=== PATIENT | female | born 1960 | race Caucasian/White ===

== ENCOUNTER 2016-05-27 12:50 | Emergency (ER) | payer MEDICAID ==
[2016-05-27] MEDS ORDERED: ONDANSETRON 4 MG TAB.RAPDIS PO ONE (13:08)
--- NOTE | 2016-05-27 13:10 | ER Document Report ---
ED Medical Screen (RME) - General Stated Complaint: NAUSEA Mode of Arrival: Ambulatory Information source: Patient Notes: She presents to the emergency department with complaints of nausea vomiting right upper quadrant abdominal pain that started last night about 1 hours after dinner of ham sandwich.. deneis trauma, reports feeling hot/cold, mixture of diarrhea. I have greeted and performed a rapid initial assessment of this patient. A comprehensive ED assessment and evaluation of the patient, analysis of test results and completion of the medical decision making process will be conducted by additional ED providers. TRAVEL OUTSIDE OF THE [place] IN LAST 30 DAYS: No - Related Data Allergies/Adverse Reactions: levofloxacin [From Levaquin] Adverse Reaction (Intermediate, Verified 04/13/16 18:19) nausea and vomiting simvastatin [From Zocor] Adverse Reaction (Intermediate, Verified 05/27/16 13:08 ) rash Past Medical History - Past Medical History Cardiac Medical History: Reports: Hx Hypercholesterolemia, Hx Hypertension, Hx Heart Murmur Denies: Hx Coronary Artery Disease, Hx Heart Attack Pulmonary Medical History: Reports: Hx Asthma, Hx Bronchitis, Hx Pneumonia Denies: Hx COPD Neurological Medical History: Reports: Hx Migraine. Denies: Hx Cerebrovascular Accident, Hx Seizures Endocrine Medical History: Reports: Hx Diabetes Mellitus Type 2 Renal/ Medical History: Reports: Hx Kidney Stones GI Medical History: Reports: Hx Gastroesophageal Reflux Disease, Hx Ulcer - gastric, Hx Colonoscopy, Hx Endoscopy Musculoskeltal Medical History: Reports Hx Arthritis, Reports Hx Musculoskeletal Trauma Psychiatric Medical History: Reports: Hx Depression Traumatic Medical History: Reports: Hx Fractures - wrist, both ankles Past Surgical History: Reports: Hx Hysterectomy, Hx Orthopedic Surgery - 2 L knee. Denies: Hx Pacemaker - Immunizations Immunizations up to date: Yes Hx Diphtheria, Pertussis, Tetanus Vaccination: Yes - 2012 Physical Exam - Vital signs Vitals: Temp Pulse Resp BP Pulse Ox 97.7 F 94 18 149/87 H 97 05/27/16 13:04 05/27/16 13:04 05/27/16 13:04 05/27/16 13:04 05/27/16 13:04 Course - Vital Signs Vital signs: Temp Pulse Resp BP Pulse Ox 97.7 F 94 18 149/87 H 97 05/27/16 13:04 05/27/16 13:04 05/27/16 13:04 05/27/16 13:04 05/27/16 13:04
[2016-05-27 13:50] LABS: APPEARANCE,URINE SLIGHTLY-CLOUDY; BILIRUBIN,URINE NEGATIVE (NEGATIVE); GLUCOSE, URINE NEGATIVE (NEGATIVE); KETONES,URINE NEGATIVE (NEGATIVE); LEUKOCYTE ESTERASE,URINE NEGATIVE (NEGATIVE); NITRITE,URINE NEGATIVE (NEGATIVE); PROTEIN,URINE 30 mg/dL (NEGATIVE); URINE SPECIFIC GRAVITY 1.026; UROBILINOGEN,URINE NEGATIVE mg/dL (<2.0)
[2016-05-27 13:52] LABS: ABSOLUTE BASOPHILS # (AUTO) 0.1 10^3/uL (0.0-0.2); ABSOLUTE EOSINOPHILS # (AUTO) 0.3 10^3/uL (0.0-0.6); ABSOLUTE LYMPHOCYTES (AUTO) 2.6 10^3/uL (0.5-4.7); ABSOLUTE MONOCYTES (AUTO) 0.4 10^3/uL (0.1-1.4); ABSOLUTE NEUT (AUTO) 3.6 10^3/uL (1.7-8.2); BASOPHILS % (AUTO) 0.8 % (0-2); EOSINOPHILS % (AUTO) 4.2 % (0-6); HEMATOCRIT 44.2 % (36.0-47.0); HEMOGLOBIN 13.8 g/dL (12.0-15.5); HGB HCT DIFFERENCE -2.8; LYMPHOCYTES % (AUTO) 37.3 % (13-45); MEAN CORPUSCULAR HEMOGLOBIN 27.6 pg (27.0-33.4); MEAN CORPUSCULAR HGB CONC 31.3 g/dL (32.0-36.0); MEAN CORPUSCULAR VOLUME 88 fl (80-97); MONOCYTES % (AUTO) 6.2 % (3-13); RED BLOOD COUNT 5.01 10^6/uL (3.72-5.28); RED CELL DISTRIBUTION WIDTH 14.1 % (11.5-14.0); SEGMENTED NEUTROPHILS % (AUTO) 51.5 % (42-78); WHITE BLOOD COUNT 6.9 10^3/uL (4.0-10.5)
[2016-05-27 14:19] LABS: ALANINE AMINOTRANSFERASE 57 U/L (9-52); ALBUMIN 4.6 g/dL (3.5-5.0); ALKALINE PHOSPHATASE 84 U/L (38-126); ANION GAP 11 (5-19); ASPARTATE AMINO TRANSFERASE 41 U/L (14-36); BILIRUBIN,TOTAL 0.8 mg/dL (0.2-1.3); BLOOD UREA NITROGEN 20 mg/dL (7-20); CALCIUM 9.7 mg/dL (8.4-10.2); CARBON DIOXIDE 30 mmol/L (22-30); CHLORIDE 99 mmol/L (98-107); CREATININE RESULT 1.17 mg/dL (0.52-1.25); GLUCOSE 118 mg/dL (75-110); LIPASE 53.7 U/L (23-300); POTASSIUM 4.1 mmol/L (3.6-5.0); SODIUM 140.3 mmol/L (137-145); TOTAL PROTEIN 7.9 g/dL (6.3-8.2)
--- NOTE | 2016-05-27 14:28 | ER Document Report ---
ED GI/ - General Chief Complaint: Nausea/Vomiting Stated Complaint: NAUSEA Mode of Arrival: Ambulatory Notes: This is a 55-year-old female with history of hypertension and obesity who presents complaining of right upper quadrant and right flank pain for one day. Pain radiates to the right lower quadrant as well. Pain is intermittent. It is associated with nausea, vomiting and loose stools. It feels similar to prior episode she had with her gallbladder. She did not have her gallbladder removed. She's had chills and sweats and subjective fever. About a week ago she states she had nasal congestion, sore throat and cough which she describes as flu symptoms. She states those symptoms have just resolved when the abdominal pain began. TRAVEL OUTSIDE OF THE [place] IN LAST 30 DAYS: No - Related Data Allergies/Adverse Reactions: levofloxacin [From Levaquin] Adverse Reaction (Intermediate, Verified 04/13/16 18:19) nausea and vomiting simvastatin [From Zocor] Adverse Reaction (Intermediate, Verified 05/27/16 13:08 ) rash Past Medical History - General Information source: Patient - Social History Smoking Status: Never Smoker Chew tobacco use (# tins/day): No Frequency of alcohol use: None Family History: Arthritis, CAD, CVA, DM, Hyperlipidemia, Hypertension, Malignancy Patient has suicidal ideation: No Patient has homicidal ideation: No - Past Medical History Cardiac Medical History: Reports: Hx Hypercholesterolemia, Hx Hypertension, Hx Heart Murmur Denies: Hx Coronary Artery Disease, Hx Heart Attack Pulmonary Medical History: Reports: Hx Asthma, Hx Bronchitis, Hx Pneumonia Denies: Hx COPD Neurological Medical History: Reports: Hx Migraine. Denies: Hx Cerebrovascular Accident, Hx Seizures Endocrine Medical History: Reports: Hx Diabetes Mellitus Type 2 Renal/ Medical History: Reports: Hx Kidney Stones. Denies: Hx Peritoneal Dialysis GI Medical History: Reports: Hx Gastroesophageal Reflux Disease, Hx Ulcer - gastric, Hx Colonoscopy, Hx Endoscopy Musculoskeltal Medical History: Reports Hx Arthritis, Reports Hx Musculoskeletal Trauma Psychiatric Medical History: Reports: Hx Depression Traumatic Medical History: Reports: Hx Fractures - wrist, both ankles Past Surgical History: Reports: Hx Hysterectomy, Hx Orthopedic Surgery - 2 L knee. Denies: Hx Pacemaker - Immunizations Immunizations up to date: Yes Hx Diphtheria, Pertussis, Tetanus Vaccination: Yes - 2012 Hx Pneumococcal Vaccination: 01/30/15 Review of Systems - Review of Systems Constitutional: Chills, Fever, Malaise, Weakness EENT: See HPI Cardiovascular: denies: Chest pain, Syncope Respiratory: Cough. denies: Short of breath Gastrointestinal: Abdominal pain, Diarrhea, Nausea, Vomiting. denies: Abdomen distended Genitourinary: Flank pain. denies: Burning Female Genitourinary: Other - Hysterectomy Musculoskeletal: denies: Leg swelling Skin: denies: Rash Hematologic/Lymphatic: denies: Swollen glands Neurological/Psychological: denies: Numbness, Tingling Physical Exam - Vital signs Vitals: Temp Pulse Resp BP Pulse Ox 97.7 F 94 18 149/87 H 97 05/27/16 13:04 05/27/16 13:04 05/27/16 13:04 05/27/16 13:04 05/27/16 13:04 - Notes Notes: GENERAL: Pleasant, obese female sitting upright on the edge of stretcher, appears moderately uncomfortable but in no acute respiratory distress, she is holding her right abdomen HEAD: Atraumatic, normocephalic. EYES: Pupils equal round and reactive to light, extraocular movements intact, sclera anicteric, conjunctiva are normal. ENT: TMs normal, nares patent, oropharynx clear without exudates. Moist mucous membranes. NECK: Normal range of motion, supple without lymphadenopathy or JVD. LUNGS: Breath sounds clear to auscultation bilaterally and equal. No wheezes rales or rhonchi. HEART: Regular rate and rhythm without murmurs, rubs or gallops. ABDOMEN: Obese, soft, positive right upper quadrant tenderness with Warren sign , mild right lower quadrant tenderness, no guarding or rebound, no left abdominal tenderness EXTREMITIES: Normal range of motion, no pitting or edema. No clubbing or cyanosis. NEUROLOGICAL: Cranial nerves II through XII grossly intact. Normal speech, normal gait. PSYCH: Normal mood, normal affect. SKIN: Warm, Dry, normal turgor, no rashes or lesions noted. Course - Vital Signs Vital signs: Temp Pulse Resp BP Pulse Ox 97.7 F 88 16 121/77 95 05/27/16 18:38 05/27/16 18:38 05/27/16 18:38 05/27/16 18:38 05/27/16 18:38 - Laboratory Result Diagrams: 05/27/16 13:25 05/27/16 13:25 Laboratory results interpreted by me: 05/27/16 05/27/16 05/27/16 13:25 13:25 13:25 MCHC 31.3 L RDW 14.1 H Est GFR ( Amer) 59 L Est GFR (Non-Af Amer) 48 L Glucose 118 H AST 41 H ALT 57 H Urine Protein 30 H - Diagnostic Test Radiology reviewed: Image reviewed, Reports reviewed - U/S negative for gallstones, CT ab/ pelvis neg for renal obstructions Discharge - Discharge Clinical Impression: Gastroenteritis Condition: Good Disposition: HOME, SELF-CARE Additional Instructions: return if you have fever, worsening pain, cannot keep down fluids or have further concerns. Prescriptions: Ondansetron [Zofran Odt 4 mg Tablet] 1 - 2 tab PO Q4H PRN #15 tab.rapdis PRN Reason: For Nausea/Vomiting Oxycodone HCl/Acetaminophen [Percocet 5-325 mg Tablet] 1 - 2 tab PO Q4H PRN #15 tablet PRN Reason: Referrals: CALLIE JACKSON [Primary Care Provider] - Follow up as needed
[2016-05-27] MEDS ORDERED: MORPHINE SULFATE 10 MG/ML INJ IV ONE ×2 (15:07→17:32)
[2016-05-27] MEDS ORDERED: ONDANSETRON HCL INJ/PF 4 MG/2 ML SDV IV ONE (15:07)
[2016-05-27 19:01] VITALS: BP 121/77
== END 2016-05-27 18:38 | disposition home or self-care (01) ==
LOC: ER 12:50
DX: K52.9 Noninfective gastroenteritis and colitis, unspecified (principal); I10 Essential (primary) hypertension; E66.9 Obesity, unspecified; Z68.43 Body mass index [BMI] 50.0-59.9, adult; R10.11 Right upper quadrant pain; R10.9 Unspecified abdominal pain; R11.2 Nausea with vomiting, unspecified; R19.4 Change in bowel habit; R61 Generalized hyperhidrosis; R53.1 Weakness; R53.81 Other malaise; R50.9 Fever, unspecified; J45.909 Unspecified asthma, uncomplicated; E11.9 Type 2 diabetes mellitus without complications; Z87.11 Personal history of peptic ulcer disease; Z87.19 Personal history of other diseases of the digestive system; Z90.710 Acquired absence of both cervix and uterus
CPT/HCPCS: 96376; 99284; 96374; 96375; 36415; 83690; 85025; 80053; 81001; 76705; 76380; S0119; J2270; J2405

== ENCOUNTER 2016-06-08 17:48 | Emergency (ER) | payer MEDICAID ==
[2016-06-08 18:05] VITALS: BP 121/78
[2016-06-08] MEDS ORDERED: ONDANSETRON 4 MG TAB.RAPDIS PO ONE (18:10)
--- NOTE | 2016-06-08 18:11 | ER Document Report ---
ED Medical Screen (RME) - General Stated Complaint: RIGHT SIDE PAIN,VOMITING Mode of Arrival: Ambulatory Information source: Patient Notes: Patient complains of right upper quadrant pain that started yesterday has been off and on. Patient does report some nausea and vomiting. Patient states she' s vomited 3 episodes today. No diarrhea. No urinary symptoms. hx: Hypertension, diabetes, high cholesterol, hysterectomy I have greeted and performed a rapid initial assessment of this patient. A comprehensive ED assessment and evaluation of the patient, analysis of test results and completion of the medical decision making process will be conducted by additional ED providers. TRAVEL OUTSIDE OF THE [place] IN LAST 30 DAYS: No - Related Data Allergies/Adverse Reactions: levofloxacin [From Levaquin] Adverse Reaction (Intermediate, Verified 04/13/16 18:19) nausea and vomiting simvastatin [From Zocor] Adverse Reaction (Intermediate, Verified 05/27/16 13:08 ) rash Past Medical History - Past Medical History Cardiac Medical History: Reports: Hx Hypercholesterolemia, Hx Hypertension, Hx Heart Murmur Denies: Hx Coronary Artery Disease, Hx Heart Attack Pulmonary Medical History: Reports: Hx Asthma, Hx Bronchitis, Hx Pneumonia Denies: Hx COPD Neurological Medical History: Reports: Hx Migraine. Denies: Hx Cerebrovascular Accident, Hx Seizures Endocrine Medical History: Reports: Hx Diabetes Mellitus Type 2 Renal/ Medical History: Reports: Hx Kidney Stones. Denies: Hx Peritoneal Dialysis GI Medical History: Reports: Hx Gastroesophageal Reflux Disease, Hx Ulcer - gastric, Hx Colonoscopy, Hx Endoscopy Musculoskeltal Medical History: Reports Hx Arthritis, Reports Hx Musculoskeletal Trauma Psychiatric Medical History: Reports: Hx Depression Traumatic Medical History: Reports: Hx Fractures - wrist, both ankles Past Surgical History: Reports: Hx Hysterectomy, Hx Orthopedic Surgery - 2 L knee. Denies: Hx Pacemaker - Immunizations Immunizations up to date: Yes Hx Diphtheria, Pertussis, Tetanus Vaccination: Yes - 2012 Physical Exam - Vital signs Vitals: Temp Pulse Resp BP Pulse Ox 97.7 F 76 18 121/78 97 06/08/16 18:04 06/08/16 18:04 06/08/16 18:04 06/08/16 18:04 06/08/16 18:04 - Abdominal Tenderness: Tender - Right lower quadrant Course - Vital Signs Vital signs: Temp Pulse Resp BP Pulse Ox 97.7 F 76 18 121/78 97 06/08/16 18:04 06/08/16 18:04 06/08/16 18:04 06/08/16 18:04 06/08/16 18:04
[2016-06-08 19:27] LABS: ABSOLUTE BASOPHILS # (AUTO) 0.1 10^3/uL (0.0-0.2); ABSOLUTE EOSINOPHILS # (AUTO) 0.3 10^3/uL (0.0-0.6); ABSOLUTE LYMPHOCYTES (AUTO) 2.4 10^3/uL (0.5-4.7); ABSOLUTE MONOCYTES (AUTO) 0.4 10^3/uL (0.1-1.4); ABSOLUTE NEUT (AUTO) 4.4 10^3/uL (1.7-8.2); BASOPHILS % (AUTO) 0.7 % (0-2); EOSINOPHILS % (AUTO) 3.4 % (0-6); HEMATOCRIT 41.1 % (36.0-47.0); HEMOGLOBIN 13.5 g/dL (12.0-15.5); HGB HCT DIFFERENCE -0.6; LYMPHOCYTES % (AUTO) 31.6 % (13-45); MEAN CORPUSCULAR HEMOGLOBIN 28.5 pg (27.0-33.4); MEAN CORPUSCULAR HGB CONC 32.9 g/dL (32.0-36.0); MEAN CORPUSCULAR VOLUME 87 fl (80-97); MONOCYTES % (AUTO) 5.5 % (3-13); RED BLOOD COUNT 4.73 10^6/uL (3.72-5.28); RED CELL DISTRIBUTION WIDTH 14.8 % (11.5-14.0); SEGMENTED NEUTROPHILS % (AUTO) 58.8 % (42-78); WHITE BLOOD COUNT 7.5 10^3/uL (4.0-10.5)
[2016-06-08 19:56] LABS: ALANINE AMINOTRANSFERASE 57 U/L (9-52); ALBUMIN 4.5 g/dL (3.5-5.0); ALKALINE PHOSPHATASE 83 U/L (38-126); ANION GAP 11 (5-19); ASPARTATE AMINO TRANSFERASE 55 U/L (14-36); BILIRUBIN,TOTAL 1.1 mg/dL (0.2-1.3); BLOOD UREA NITROGEN 17 mg/dL (7-20); CALCIUM 9.9 mg/dL (8.4-10.2); CARBON DIOXIDE 30 mmol/L (22-30); CHLORIDE 98 mmol/L (98-107); CREATININE RESULT 1.06 mg/dL (0.52-1.25); GLUCOSE 116 mg/dL (75-110); LIPASE 51.8 U/L (23-300); POTASSIUM 4.5 mmol/L (3.6-5.0); SODIUM 138.5 mmol/L (137-145)
[2016-06-08 21:27] LABS: APPEARANCE,URINE SLIGHTLY-CLOUDY; BILIRUBIN,URINE NEGATIVE (NEGATIVE); GLUCOSE, URINE NEGATIVE (NEGATIVE); KETONES,URINE NEGATIVE (NEGATIVE); LEUKOCYTE ESTERASE,URINE NEGATIVE (NEGATIVE); NITRITE,URINE NEGATIVE (NEGATIVE); PROTEIN,URINE NEGATIVE (NEGATIVE)
== END 2016-06-08 22:05 | disposition left against medical advice (07) ==
LOC: ER 17:48
DX: R10.11 Right upper quadrant pain (principal); R11.10 Vomiting, unspecified; I10 Essential (primary) hypertension; E78.00 Pure hypercholesterolemia, unspecified; Z90.710 Acquired absence of both cervix and uterus
CPT/HCPCS: 99281; 36415; 83690; 85025; 80053; 81001; S0119

== ENCOUNTER 2016-06-17 12:55 | Day surgery (SDC) | payer MEDICAID ==
[2016-06-17] MEDS ORDERED: DIPHENHYDRAMINE HCL 50 MG/ML VIAL ONE (12:56)
[2016-06-17] MEDS ORDERED: NALOXONE HCL INJ/PF 0.4 MG/1 ML SDV ONE (12:56)
[2016-06-17] MEDS ORDERED: MIDAZOLAM 2 MG/2 ML INJ ONE (12:57)
[2016-06-17] MEDS ORDERED: PROMETHAZINE HCL INJ 25 MG/1 ML VIAL ONE (12:57)
[2016-06-17] MEDS ORDERED: ONDANSETRON HCL INJ/PF 4 MG/2 ML SDV ONE (12:57)
[2016-06-17] MEDS ORDERED: FLUMAZENIL INJ 0.5 MG/5 ML VIAL IV ONE (12:58)
[2016-06-17] MEDS ORDERED: GLUCAGON,HUMAN RECOMB 1 MG INJ ONE (12:58)
[2016-06-17] MEDS ORDERED: EPINEPHRINE INJ 1 MG/10 ML DISP.SYRIN ONE (12:58)
[2016-06-17] MEDS ORDERED: FENTANYL CITRATE INJ/PF 100 MCG/2 ML AMPUL ONE (12:58)
[2016-06-17] MEDS: MIDAZOLAM 2 MG/2 ML INJ ONE ×3 (14:12→14:22)
[2016-06-17] MEDS: FENTANYL CITRATE INJ/PF 100 MCG/2 ML AMPUL ONE ×2 (14:14→14:20)
--- NOTE | 2016-06-17 14:30 | Operative Report ---
Operative Report DATE OF SURGERY: 06/17/16 Operative Report: The risks benefits and alternatives of the procedure explained to the patient in detail and informed consent is obtained that GIF Olympus video scope was inserted into the patient's mouth and hypopharynx the esophagus is identified intubated and insufflated the scope was then advanced through the esophagus stomach and duodenum retroflexion maneuver is done the esophagus stomach and first and second portions of the duodenum examined PREOPERATIVE DIAGNOSIS: Epigastric pain POSTOPERATIVE DIAGNOSIS: Gastritis status post biopsy rule out Helicobacter pylori OPERATION: EGD with biopsy SURGEON: NEGIN MARTINES ANESTHESIA: Moderate Sedation - 6 mg of Versed, 125 g of fentanyl. Conscious sedation monitoring time 25 minutes TISSUE REMOVED OR ALTERED: Gastric specimens x2 COMPLICATIONS: None. ESTIMATED BLOOD LOSS: none. INTRAOPERATIVE FINDINGS: Gastritis. Normal esophagus. First and second portions of the duodenum normal PROCEDURE: Patient tolerated procedure well. No immediate postprocedure complications are noted. Patient is discharged in good condition. Discharge date 06/17/2016. Discharge diet: Regular. Discharge activity: Regular. Patient does have a 2-3 week follow-up to discuss findings. Patient is instructed to call the office or proceed to the emergency room after any further problems or questions. We'll await on biopsies.
[2016-06-17 15:34] VITALS: BP 132/77
== END 2016-06-17 15:36 | disposition home or self-care (01) ==
LOC: END 12:55
PROVIDERS: ATTEND Internal Medicine Gastroenterology
PROC: 0DB68ZX Excision of Stomach, Via Natural or Artificial Opening Endoscopic, Diagnostic (ICD-10-PCS; principal; 2016-06-17 13:30)
DX: K29.50 Unspecified chronic gastritis without bleeding (principal); E11.9 Type 2 diabetes mellitus without complications; I10 Essential (primary) hypertension; K76.0 Fatty (change of) liver, not elsewhere classified; E66.9 Obesity, unspecified; Z88.8 Allergy status to other drugs, medicaments and biological substances
CPT/HCPCS: 43239; 82962; 88342 ×2; 88305 ×2; J2250; J3010; J0171; J1200; J1610; J2310; J2405; J2550; J3490

== ENCOUNTER 2016-06-19 19:08 | Emergency (ER) | payer MEDICAID ==
[2016-06-19 19:20] VITALS: BP 148/74
[2016-06-19] MEDS ORDERED: ONDANSETRON 4 MG TAB.RAPDIS PO ONE (19:20)
--- NOTE | 2016-06-19 19:21 | ER Document Report ---
ED Medical Screen (RME) - General Stated Complaint: POSSIBLE BLOOD IN VOMIT/STOOL Mode of Arrival: Ambulatory Information source: Patient Notes: Patient complains of right lower side abdominal pain that radiates around to her back. Patient states she was here last week for similar complaint. Patient does complain of nausea and vomiting 2 today. Patient does report an episode of hematemesis. No fever. No urinary symptoms. hx: Gastric ulcers, diabetes, hypertension, dyslipidemia I have greeted and performed a rapid initial assessment of this patient. A comprehensive ED assessment and evaluation of the patient, analysis of test results and completion of the medical decision making process will be conducted by additional ED providers. TRAVEL OUTSIDE OF THE [place] IN LAST 30 DAYS: No - Related Data Allergies/Adverse Reactions: levofloxacin [From Levaquin] Adverse Reaction (Intermediate, Verified 06/17/16 13:19) nausea and vomiting simvastatin [From Zocor] Adverse Reaction (Intermediate, Verified 06/17/16 13:19 ) rash Past Medical History - Past Medical History Cardiac Medical History: Reports: Hx Hypercholesterolemia, Hx Hypertension, Hx Heart Murmur Denies: Hx Coronary Artery Disease, Hx Heart Attack Pulmonary Medical History: Reports: Hx Asthma, Hx Bronchitis, Hx Pneumonia Denies: Hx COPD Neurological Medical History: Reports: Hx Migraine. Denies: Hx Cerebrovascular Accident, Hx Seizures Endocrine Medical History: Reports: Hx Diabetes Mellitus Type 2 Renal/ Medical History: Reports: Hx Kidney Stones. Denies: Hx Peritoneal Dialysis GI Medical History: Reports: Hx Gastroesophageal Reflux Disease, Hx Ulcer - gastric, Hx Colonoscopy, Hx Endoscopy Musculoskeltal Medical History: Reports Hx Arthritis, Reports Hx Musculoskeletal Trauma Psychiatric Medical History: Reports: Hx Depression Traumatic Medical History: Reports: Hx Fractures - wrist, both ankles Past Surgical History: Reports: Hx Hysterectomy, Hx Orthopedic Surgery - 2 L knee. Denies: Hx Pacemaker - Immunizations Immunizations up to date: Yes Hx Diphtheria, Pertussis, Tetanus Vaccination: Yes - 2012 Physical Exam - Abdominal Inspection: Morbidly Obese Tenderness: Tender - Right lower abdominal tenderness
[2016-06-19 20:06] LABS: APPEARANCE,URINE CLEAR; BILIRUBIN,URINE NEGATIVE (NEGATIVE); GLUCOSE, URINE NEGATIVE (NEGATIVE); KETONES,URINE NEGATIVE (NEGATIVE); LEUKOCYTE ESTERASE,URINE NEGATIVE (NEGATIVE); NITRITE,URINE NEGATIVE (NEGATIVE); PROTEIN,URINE NEGATIVE (NEGATIVE); URINE SPECIFIC GRAVITY 1.016; UROBILINOGEN,URINE NEGATIVE mg/dL (<2.0)
== END 2016-06-19 21:50 | disposition left against medical advice (07) ==
LOC: ER 19:08
DX: Z53.9 Procedure and treatment not carried out, unspecified reason (principal); K92.0 Hematemesis; R19.5 Other fecal abnormalities; R11.2 Nausea with vomiting, unspecified
CPT/HCPCS: 99281; 81001; S0119

== ENCOUNTER 2016-07-09 17:55 | Emergency (ER) | payer MEDICAID ==
[2016-07-09] MEDS ORDERED: ONDANSETRON 4 MG TAB.RAPDIS PO ONE (19:28)
--- NOTE | 2016-07-09 19:30 | ER Document Report ---
ED Medical Screen (RME) - General Chief Complaint: Abdominal Pain Stated Complaint: LIGHT HEADED Notes: Patient states she's been having intermittent abdominal pain for 1 month as well as nausea and vomiting. Some diarrhea. Seen by Dr. Hinds and scoped 3 weeks ago, diagnosed with H. pylori. Put on Prevpac 2 days ago but patient states she is unable to keep the medication down. Patient states that she is feeling weak. She states they called Dr. Hinds today and was advised to come to the emergency room. No fever I have greeted and performed a rapid initial assessment of this patient. A comprehensive ED assessment and evaluation of the patient, analysis of test results and completion of the medical decision making process will be conducted by additional ED providers. TRAVEL OUTSIDE OF THE [place] IN LAST 30 DAYS: No - Related Data Allergies/Adverse Reactions: levofloxacin [From Levaquin] Adverse Reaction (Intermediate, Verified 06/17/16 13:19) nausea and vomiting simvastatin [From Zocor] Adverse Reaction (Intermediate, Verified 06/17/16 13:19 ) rash Past Medical History - Past Medical History Cardiac Medical History: Reports: Hx Hypercholesterolemia, Hx Hypertension, Hx Heart Murmur Denies: Hx Coronary Artery Disease, Hx Heart Attack Pulmonary Medical History: Reports: Hx Asthma, Hx Bronchitis, Hx Pneumonia Denies: Hx COPD Neurological Medical History: Reports: Hx Migraine. Denies: Hx Cerebrovascular Accident, Hx Seizures Endocrine Medical History: Reports: Hx Diabetes Mellitus Type 2 Renal/ Medical History: Reports: Hx Kidney Stones. Denies: Hx Peritoneal Dialysis GI Medical History: Reports: Hx Gastroesophageal Reflux Disease, Hx Ulcer - gastric, Hx Colonoscopy, Hx Endoscopy Musculoskeltal Medical History: Reports Hx Arthritis, Reports Hx Musculoskeletal Trauma Psychiatric Medical History: Reports: Hx Depression Traumatic Medical History: Reports: Hx Fractures - wrist, both ankles Past Surgical History: Reports: Hx Hysterectomy, Hx Orthopedic Surgery - 2 L knee. Denies: Hx Pacemaker - Immunizations Immunizations up to date: Yes Hx Diphtheria, Pertussis, Tetanus Vaccination: Yes - 2012 Physical Exam - Vital signs Vitals: Temp Pulse Resp BP Pulse Ox 97.8 F 91 18 157/88 H 100 07/09/16 18:11 07/09/16 18:11 07/09/16 18:11 07/09/16 18:11 07/09/16 18:11 Course - Vital Signs Vital signs: Temp Pulse Resp BP Pulse Ox 97.8 F 91 18 157/88 H 100 07/09/16 18:11 07/09/16 18:11 07/09/16 18:11 07/09/16 18:11 07/09/16 18:11
[2016-07-09] MEDS ORDERED: OXYCODONE-ACETAMINOPHEN 5-325 MG TABLET PO ONE ×2 (21:20→23:13)
[2016-07-09] MEDS ORDERED: SUCRALFATE 1 GM TABLET PO ONE ×2 (21:20→23:13)
[2016-07-09] MEDS ORDERED: NORMAL SALINE 1000 ML 1,000 ML IV ONE (21:20)
--- NOTE | 2016-07-09 21:22 | ER Document Report ---
ED GI/ - General Chief Complaint: Abdominal Pain Stated Complaint: LIGHT HEADED Notes: Patient is a 55-year-old female that comes emergency department with chief complaint of pain in her upper abdomen with 2 episodes of vomiting today. Patient states she was placed on amoxicillin, clarithromycin, and omeprazole treatment 2 days ago for an H. pylori infection diagnosed by endoscopy by Dr. Hinds. She states that when she tried to take the medications she vomited. She denies bloody vomit. She states that her bowel movement "looked kind of dark with green mixed in", she is also taking Pepto-Bismol. Past medical history of hysterectomy, hypertension, type II diabetes. TRAVEL OUTSIDE OF THE [place] IN LAST 30 DAYS: No - Related Data Allergies/Adverse Reactions: levofloxacin [From Levaquin] Adverse Reaction (Intermediate, Verified 06/17/16 13:19) nausea and vomiting simvastatin [From Zocor] Adverse Reaction (Intermediate, Verified 06/17/16 13:19 ) rash Home Medications: Current Home Medications Duloxetine HCl [Sammy 30 mg Helen.] 30 mg PO DAILY 07/09/16 [History] Insulin Glargine,Hum.rec.anlog [Lantus Insulin 100 Unit/mL] 07/09/16 [History] Oxycodone HCl/Acetaminophen [Percocet 5-325 mg Tablet] 1 - 2 tab PO Q4H PRN 02/15 [History] Past Medical History - General Information source: Patient - Social History Smoking Status: Never Smoker Chew tobacco use (# tins/day): No Frequency of alcohol use: None Drug Abuse: None Lives with: Family Family History: Arthritis, CAD, CVA, DM, Hyperlipidemia, Hypertension, Malignancy Patient has suicidal ideation: No Patient has homicidal ideation: No - Past Medical History Cardiac Medical History: Reports: Hx Hypercholesterolemia, Hx Hypertension, Hx Heart Murmur Denies: Hx Coronary Artery Disease, Hx Heart Attack Pulmonary Medical History: Reports: Hx Asthma, Hx Bronchitis, Hx Pneumonia Denies: Hx COPD Neurological Medical History: Reports: Hx Migraine. Denies: Hx Cerebrovascular Accident, Hx Seizures Endocrine Medical History: Reports: Hx Diabetes Mellitus Type 2 Renal/ Medical History: Reports: Hx Kidney Stones. Denies: Hx Peritoneal Dialysis GI Medical History: Reports: Hx Gastroesophageal Reflux Disease, Hx Ulcer - gastric, Hx Colonoscopy, Hx Endoscopy Musculoskeltal Medical History: Reports Hx Arthritis, Reports Hx Musculoskeletal Trauma Psychiatric Medical History: Reports: Hx Depression Traumatic Medical History: Reports: Hx Fractures - wrist, both ankles Past Surgical History: Reports: Hx Hysterectomy, Hx Orthopedic Surgery - 2 L knee. Denies: Hx Pacemaker - Immunizations Immunizations up to date: Yes Hx Diphtheria, Pertussis, Tetanus Vaccination: Yes - 2012 Hx Pneumococcal Vaccination: 01/30/15 Review of Systems - Review of Systems Constitutional: No symptoms reported EENT: No symptoms reported Cardiovascular: No symptoms reported Respiratory: No symptoms reported Gastrointestinal: See HPI Genitourinary: No symptoms reported Female Genitourinary: No symptoms reported Musculoskeletal: No symptoms reported Skin: No symptoms reported Hematologic/Lymphatic: No symptoms reported Neurological/Psychological: No symptoms reported Physical Exam - Vital signs Vitals: Temp Pulse Resp BP Pulse Ox 97.8 F 91 18 157/88 H 100 07/09/16 18:11 07/09/16 18:11 07/09/16 18:11 07/09/16 18:11 07/09/16 18:11 Interpretation: Normal - General General appearance: Alert, Anxious In distress: Mild - Patient appears to be uncomfortable, sitting uneasily on the bed - HEENT Head: Normocephalic, Atraumatic Eyes: Normal Pupils: PERRL - Respiratory Respiratory status: No respiratory distress Chest status: Nontender Breath sounds: Normal Chest palpation: Normal - Cardiovascular Rhythm: Regular Heart sounds: Normal auscultation Murmur: No - Abdominal Inspection: Normal Distension: No distension Bowel sounds: Normal Tenderness: Tender - Tenderness in the left upper quadrant and epigastric area on examination, otherwise unremarkable abdominal exam - Back Back: Normal, Nontender. No: Tender - Extremities General upper extremity: Normal inspection, Nontender, Normal ROM, Normal strength General lower extremity: Normal inspection, Nontender, Normal ROM, Normal strength - Neurological Neuro grossly intact: Yes Cognition: Normal Orientation: AAOx4 Samreen Coma Scale Eye Opening: Spontaneous [place] Coma Scale Verbal: Oriented [place] Coma Scale Motor: Obeys Commands Samreen Coma Scale Total: 15 Speech: Normal Motor strength normal: LUE, RUE, LLE, RLE Sensory: Normal - Psychological Associated symptoms: Normal affect, Normal mood - Skin Skin Temperature: Warm Skin Moisture: Dry Skin Color: Normal Course - Re-evaluation Re-evalutation: Patient does appear to be uncomfortable on my initial examination, pain is mainly in the generalized upper abdomen, patient with known history of peptic ulcers and H. pylori infection. Patient has images with her showing peptic ulcers. Treated with Carafate, pain medication, nausea medication, after this patient's symptoms resolved, patient now relaxed and well appearing, patient states she feels excellent, patient able to tolerate by mouth. IV fluids given. CBC generally unremarkable, chemistry approximately baseline, lipase unremarkable. Very low suspicion of acute abdomen. Vital signs unremarkable with some hypertension. Patient is ready being evaluated and treated by gastroenterology , advised her to follow-up closely with this, discussed return precautions including severe pain, vomiting blood, black stools, etc. Patient states understanding and agreement. - Vital Signs Vital signs: Temp Pulse Resp BP Pulse Ox 97.8 F 84 18 113/78 98 07/09/16 18:11 07/10/16 00:55 07/10/16 00:55 07/10/16 00:55 07/10/16 00:55 - Laboratory Result Diagrams: 07/09/16 22:49 07/09/16 21:00 Laboratory results interpreted by me: 07/09/16 07/09/16 21:00 22:49 RDW 14.1 H Plt Count 123 L BUN 21 H Glucose 157 H AST 55 H ALT 56 H Discharge - Discharge Clinical Impression: Peptic ulcer disease Abdominal pain Qualifiers: Abdominal location: right upper quadrant Qualified Code(s): R10.11 - Right upper quadrant pain Condition: Stable Disposition: HOME, SELF-CARE Additional Instructions: Continue your current regimen to treat H. pylori, take the additional medications prescribed, follow-up closely with your primary provider. Return to the emergency department for any concerning or worsening symptoms including black stools, severe abdominal pain, vomiting blood, etc. Prescriptions: Ondansetron [Zofran Odt 4 mg Tablet] 1 - 2 tab PO Q4H PRN #20 tab.rapdis PRN Reason: For Nausea/Vomiting Oxycodone HCl/Acetaminophen [Percocet 5-325 mg Tablet] 1 - 2 tab PO Q4H PRN #15 tablet PRN Reason: Sucralfate [Carafate 1 gm Tablet] 1 gm PO QID #40 tablet Referrals: CALLIE JACKSON PA-C [Primary Care Provider] - Follow up as needed
[2016-07-09] MEDS ORDERED: ONDANSETRON HCL INJ/PF 4 MG/2 ML SDV IV ONE (21:51)
[2016-07-09 22:28] LABS: ALANINE AMINOTRANSFERASE 56 U/L (9-52); ALBUMIN 4.1 g/dL (3.5-5.0); ALKALINE PHOSPHATASE 85 U/L (38-126); ANION GAP 9 (5-19); ASPARTATE AMINO TRANSFERASE 55 U/L (14-36); BILIRUBIN,TOTAL 0.7 mg/dL (0.2-1.3); BLOOD UREA NITROGEN 21 mg/dL (7-20); CALCIUM 9.6 mg/dL (8.4-10.2); CARBON DIOXIDE 28 mmol/L (22-30); CHLORIDE 104 mmol/L (98-107); CREATININE RESULT 0.77 mg/dL (0.52-1.25); GLUCOSE 157 mg/dL (75-110); LIPASE 51.7 U/L (23-300); POTASSIUM 3.7 mmol/L (3.6-5.0); SODIUM 140.8 mmol/L (137-145); TOTAL PROTEIN 7.8 g/dL (6.3-8.2)
[2016-07-09 23:00] LABS: ABSOLUTE BASOPHILS # (AUTO) 0.1 10^3/uL (0.0-0.2); ABSOLUTE EOSINOPHILS # (AUTO) 0.2 10^3/uL (0.0-0.6); ABSOLUTE LYMPHOCYTES (AUTO) 2.4 10^3/uL (0.5-4.7); ABSOLUTE MONOCYTES (AUTO) 0.4 10^3/uL (0.1-1.4); ABSOLUTE NEUT (AUTO) 3.9 10^3/uL (1.7-8.2); BASOPHILS % (AUTO) 0.8 % (0-2); EOSINOPHILS % (AUTO) 3.3 % (0-6); HEMATOCRIT 36.2 % (36.0-47.0); HEMOGLOBIN 12.2 g/dL (12.0-15.5); HGB HCT DIFFERENCE 0.4; LYMPHOCYTES % (AUTO) 33.9 % (13-45); MEAN CORPUSCULAR HGB CONC 33.8 g/dL (32.0-36.0); MEAN CORPUSCULAR VOLUME 86 fl (80-97); MONOCYTES % (AUTO) 5.3 % (3-13); RED BLOOD COUNT 4.22 10^6/uL (3.72-5.28); RED CELL DISTRIBUTION WIDTH 14.1 % (11.5-14.0); SEGMENTED NEUTROPHILS % (AUTO) 56.7 % (42-78); WHITE BLOOD COUNT 6.9 10^3/uL (4.0-10.5)
[2016-07-09] MEDS ORDERED: FAMOTIDINE 20 MG TABLET PO ONE (23:13)
[2016-07-10 00:55] VITALS: BP 113/78
== END 2016-07-10 00:55 | disposition home or self-care (01) ==
LOC: ER 17:55
DX: K27.9 Peptic ulcer, site unspecified, unspecified as acute or chronic, without hemorrhage or perforation (principal); A04.8 Other specified bacterial intestinal infections; R11.10 Vomiting, unspecified; R10.11 Right upper quadrant pain; I10 Essential (primary) hypertension; E11.9 Type 2 diabetes mellitus without complications; J45.909 Unspecified asthma, uncomplicated
CPT/HCPCS: 99284; 96361; 96374; 36415; 83690; 85025; 80053; J3490 ×2; S0119; J2405; J7030

== ENCOUNTER 2016-09-11 06:55 | Emergency (ER) | payer OTHER, MEDICAID ==
[2016-09-11] MEDS ORDERED: ONDANSETRON HCL INJ/PF 4 MG/2 ML SDV IV ONE (07:27)
[2016-09-11] MEDS ORDERED: LIDOCAINE 5% (700 MG) TRANSDERMAL ADH..PATCH TP ONE (07:27)
[2016-09-11] MEDS ORDERED: NORMAL SALINE 1000 ML 1,000 ML IV ONE (07:27)
[2016-09-11] MEDS ORDERED: PROCHLORPERAZINE EDISYLATE INJ 10 MG/2 ML VIAL IM ONE (07:27)
--- NOTE | 2016-09-11 08:05 | ER Document Report ---
ED General - General Chief Complaint: Headache Stated Complaint: PAIN RIGHT SIDE OF HEAD AND NECK,NAUSEA Time Seen by Provider: 09/11/16 07:27 TRAVEL OUTSIDE OF THE [place] IN LAST 30 DAYS: No - HPI Patient complains to provider of: headache Notes: Patient coming in for acute right side headache and neck pain. States she woke up after sleeping on her back with his pain. Patient denies any fevers chills vomiting diarrhea denies any trauma. Patient denies any tooth pain. Patient otherwise is holding her head rocking back and forth however when asking questions easily redirectable looks to be in no acute distress. - Related Data Allergies/Adverse Reactions: levofloxacin [From Levaquin] Adverse Reaction (Intermediate, Verified 09/11/16 07:57) nausea and vomiting simvastatin [From Zocor] Adverse Reaction (Intermediate, Verified 09/11/16 07:57 ) rash Past Medical History - Social History Smoking Status: Unknown if Ever Smoked Family History: Arthritis, CAD, CVA, DM, Hyperlipidemia, Hypertension, Malignancy Patient has suicidal ideation: No Patient has homicidal ideation: No - Past Medical History Cardiac Medical History: Reports: Hx Hypercholesterolemia, Hx Hypertension, Hx Heart Murmur Denies: Hx Coronary Artery Disease, Hx Heart Attack Pulmonary Medical History: Reports: Hx Asthma, Hx Bronchitis, Hx Pneumonia Denies: Hx COPD Neurological Medical History: Reports: Hx Migraine. Denies: Hx Cerebrovascular Accident, Hx Seizures Endocrine Medical History: Reports: Hx Diabetes Mellitus Type 2 Renal/ Medical History: Reports: Hx Kidney Stones. Denies: Hx Peritoneal Dialysis GI Medical History: Reports: Hx Gastroesophageal Reflux Disease, Hx Ulcer - gastric, Hx Colonoscopy, Hx Endoscopy Musculoskeltal Medical History: Reports Hx Arthritis, Reports Hx Musculoskeletal Trauma Psychiatric Medical History: Reports: Hx Depression Traumatic Medical History: Reports: Hx Fractures - wrist, both ankles Past Surgical History: Reports: Hx Hysterectomy, Hx Orthopedic Surgery - 2 L knee. Denies: Hx Pacemaker - Immunizations Immunizations up to date: Yes Hx Diphtheria, Pertussis, Tetanus Vaccination: Yes - 2012 Hx Pneumococcal Vaccination: 01/30/15 Review of Systems - Review of Systems Constitutional: No symptoms reported EENT: No symptoms reported Cardiovascular: No symptoms reported Respiratory: No symptoms reported Gastrointestinal: No symptoms reported Genitourinary: No symptoms reported Female Genitourinary: No symptoms reported Musculoskeletal: No symptoms reported Skin: No symptoms reported Hematologic/Lymphatic: No symptoms reported Neurological/Psychological: No symptoms reported Physical Exam - Vital signs Vitals: Temp Pulse Resp BP Pulse Ox 97.8 F 78 16 178/97 H 96 09/11/16 07:00 09/11/16 07:00 09/11/16 07:00 09/11/16 07:00 09/11/16 07:00 Interpretation: Normal - General General appearance: Appears well, Alert - HEENT Head: Normocephalic, Atraumatic Eyes: Normal Conjunctiva: Normal Cornea: Normal Extraocular movements intact: Yes Eyelashes: Normal Pupils: PERRL Ears: Normal External canal: Normal Tympanic membrane: Normal Sinus: Normal Nasal: Normal Mouth/Lips: Normal Pharynx: Normal Neck: Normal. No: Brudzinski, Kernig's, Meningismus - Respiratory Respiratory status: No respiratory distress Chest status: Nontender Breath sounds: Normal Chest palpation: Normal - Cardiovascular Rhythm: Regular Heart sounds: Normal auscultation Murmur: No - Abdominal Inspection: Normal Distension: No distension Bowel sounds: Normal Tenderness: Nontender Organomegaly: No organomegaly - Back Back: Normal, Nontender - Extremities General upper extremity: Normal inspection, Nontender, Normal color, Normal ROM , Normal temperature General lower extremity: Normal inspection, Nontender, Normal color, Normal ROM , Normal temperature, Normal weight bearing. No: Shasta's sign - Neurological Neuro grossly intact: Yes Cognition: Normal Orientation: AAOx4 Samreen Coma Scale Eye Opening: Spontaneous [place] Coma Scale Verbal: Oriented Samreen Coma Scale Motor: Obeys Commands [place] Coma Scale Total: 15 Speech: Normal Motor strength normal: LUE, RUE, LLE, RLE Sensory: Normal - Psychological Associated symptoms: Normal affect, Normal mood - Skin Skin Temperature: Warm Skin Moisture: Dry Skin Color: Normal Course - Re-evaluation Re-evalutation: 09/11/16 09:37 The patient presents with headache without signs of ENVIRONMENTAL ATTORNEY bleed, stroke, infection , or other serious etiology. The patient is neurologically intact. Given the extremely low risk of these diagnoses further testing and evaluation for these possibilities does not appear to be indicated at this time. The patient has been instructed to return if the symptoms worsen or change in any way.. Patient with good headache relief states still continues to have neck pain. Patient will be discharged home after the injection of ketorolac given - Vital Signs Vital signs: Temp Pulse Resp BP Pulse Ox 97.8 F 78 16 178/97 H 96 09/11/16 07:15 09/11/16 07:15 09/11/16 07:15 09/11/16 07:15 09/11/16 07:15 Discharge - Discharge Clinical Impression: Neck pain Headache Qualifiers: Headache type: unspecified Headache chronicity pattern: unspecified pattern Intractability: not intractable Qualified Code(s): R51 - Headache Condition: Good Disposition: HOME, SELF-CARE Instructions: Headache ([facility]), Neck Injury (Cervical Strain) ([facility]) Additional Instructions: Please continue to wear the lidocaine patch provided to you in the ER if you do not receive the pain relief ask her pharmacist about [id number] lidocaine cream or patches. I will prescribe you Compazine and Zofran and she may take for your headache. Please take these 2 medications together they also help out with nausea. Drink plenty of water to stay hydrated Prescriptions: Naproxen [Naprosyn 250 mg Tablet] 250 mg PO DAILY PRN #10 tablet PRN Reason: Ondansetron [Zofran Odt 4 mg Tablet] 1 tab PO Q6 #15 tab.rapdis Prochlorperazine Maleate [Compazine] 5 mg PO Q6 #15 tablet Referrals: CALLIE HUERTA PA-C [Primary Care Provider] - Follow up in 3-5 days
[2016-09-11] MEDS ORDERED: KETOROLAC TROMETHAMINE INJ/PF 30 MG/1 ML SDV IV ONE (08:59)
[2016-09-11 09:59] VITALS: BP 135/79
== END 2016-09-11 09:13 | disposition home or self-care (01) ==
LOC: ER 06:55
DX: M54.2 Cervicalgia (principal); R51 Headache; R11.0 Nausea
CPT/HCPCS: 99283; 96372; 96361; 96374; 96375; J1885; J0780; J2405; J7030

== ENCOUNTER 2016-09-15 22:15 | Emergency (ER) | payer OTHER ==
[2016-09-15 23:53] VITALS: BP 147/76
== END 2016-09-16 01:43 | disposition left against medical advice (07) ==
LOC: ER 22:15
DX: Z53.21 Procedure and treatment not carried out due to patient leaving prior to being seen by health care provider (principal)

== ENCOUNTER 2016-09-22 14:44 | Emergency (ER) | payer MEDICAID, OTHER ==
[2016-09-22 15:51] LABS: ABSOLUTE BASOPHILS # (AUTO) 0.1 10^3/uL (0.0-0.2); ABSOLUTE EOSINOPHILS # (AUTO) 1.3 10^3/uL (0.0-0.6); ABSOLUTE LYMPHOCYTES (AUTO) 2.9 10^3/uL (0.5-4.7); ABSOLUTE MONOCYTES (AUTO) 0.4 10^3/uL (0.1-1.4); BASOPHILS % (AUTO) 0.9 % (0-2); EOSINOPHILS % (AUTO) 14.6 % (0-6); HEMOGLOBIN 14.1 g/dL (12.0-15.5); HGB HCT DIFFERENCE 0.3; LYMPHOCYTES % (AUTO) 33.5 % (13-45); MEAN CORPUSCULAR HEMOGLOBIN 28.8 pg (27.0-33.4); MEAN CORPUSCULAR HGB CONC 33.5 g/dL (32.0-36.0); MEAN CORPUSCULAR VOLUME 86 fl (80-97); MONOCYTES % (AUTO) 4.7 % (3-13); RED BLOOD COUNT 4.88 10^6/uL (3.72-5.28); RED CELL DISTRIBUTION WIDTH 14.3 % (11.5-14.0); SEGMENTED NEUTROPHILS % (AUTO) 46.3 % (42-78); WHITE BLOOD COUNT 8.7 10^3/uL (4.0-10.5)
[2016-09-22 16:04] LABS: ALANINE AMINOTRANSFERASE 53 U/L (9-52); ALBUMIN 4.5 g/dL (3.5-5.0); ALKALINE PHOSPHATASE 103 U/L (38-126); ANION GAP 12 (5-19); ASPARTATE AMINO TRANSFERASE 31 U/L (14-36); BILIRUBIN,DIRECT 0.4 mg/dL (0.0-0.4); BILIRUBIN,TOTAL 0.7 mg/dL (0.2-1.3); BLOOD UREA NITROGEN 25 mg/dL (7-20); CARBON DIOXIDE 30 mmol/L (22-30); CHLORIDE 96 mmol/L (98-107); CREATININE RESULT 1.11 mg/dL (0.52-1.25); GLUCOSE 308 mg/dL (75-110); LIPASE 37.7 U/L (23-300); POTASSIUM 4.9 mmol/L (3.6-5.0); SODIUM 137.6 mmol/L (137-145)
[2016-09-22] MEDS ORDERED: METOCLOPRAMIDE HCL ORAL SOLN 10 MG/10 ML UDCUP PO ONE (16:08)
[2016-09-22] MEDS ORDERED: LIDOCAINE 2% VISCOUS SOLN 20 ML UDCUP PO ONE (16:08)
[2016-09-22] MEDS ORDERED: MAG HYDROX/AL HYDROX/SIMETH SUSP 30 ML UDCUP PO ONE (16:08)
--- NOTE | 2016-09-22 16:36 | ER Document Report ---
ED GI/ - General Chief Complaint: Upper Abdominal Pain Stated Complaint: ABDOMINAL PAIN,NAUSEA Time Seen by Provider: 09/22/16 15:55 Notes: patient is a 56 year old female p/w epigastric discomfort since , She was evaluated in the department for headaches on September 11. She was sent home with Motrin and told to follow up with her primary care to manage her headaches. She admits to nausea, heartburn and vomiting x1. She otherwise has been tolerating PO without difficulty. PMH: gastric ulcers, IDDM, gerd TRAVEL OUTSIDE OF THE [place] IN LAST 30 DAYS: No - Related Data Allergies/Adverse Reactions: levofloxacin [From Levaquin] Adverse Reaction (Intermediate, Verified 09/22/16 14:45) nausea and vomiting simvastatin [From Zocor] Adverse Reaction (Intermediate, Verified 09/22/16 14:45 ) rash Past Medical History - Social History Smoking Status: Current Every Day Smoker Family History: Arthritis, CAD, CVA, DM, Hyperlipidemia, Hypertension, Malignancy Patient has suicidal ideation: No Patient has homicidal ideation: No - Past Medical History Cardiac Medical History: Reports: Hx Hypercholesterolemia, Hx Hypertension, Hx Heart Murmur Denies: Hx Coronary Artery Disease, Hx Heart Attack Pulmonary Medical History: Reports: Hx Asthma, Hx Bronchitis, Hx Pneumonia Denies: Hx COPD Neurological Medical History: Reports: Hx Migraine. Denies: Hx Cerebrovascular Accident, Hx Seizures Endocrine Medical History: Reports: Hx Diabetes Mellitus Type 2 Renal/ Medical History: Reports: Hx Kidney Stones. Denies: Hx Peritoneal Dialysis GI Medical History: Reports: Hx Gastroesophageal Reflux Disease, Hx Ulcer - gastric, Hx Colonoscopy, Hx Endoscopy Musculoskeltal Medical History: Reports Hx Arthritis, Reports Hx Musculoskeletal Trauma Psychiatric Medical History: Reports: Hx Depression Traumatic Medical History: Reports: Hx Fractures - wrist, both ankles Past Surgical History: Reports: Hx Hysterectomy, Hx Orthopedic Surgery - 2 L knee. Denies: Hx Pacemaker - Immunizations Immunizations up to date: Yes Hx Diphtheria, Pertussis, Tetanus Vaccination: Yes - 2012 Hx Pneumococcal Vaccination: 01/30/15 Review of Systems - Review of Systems Constitutional: No symptoms reported Cardiovascular: No symptoms reported Respiratory: No symptoms reported Gastrointestinal: See HPI -: Yes All other systems reviewed and negative Physical Exam - Vital signs Vitals: Temp Pulse Resp BP Pulse Ox 97.7 F 101 H 22 H 158/106 H 97 09/22/16 14:48 09/22/16 14:48 09/22/16 14:48 09/22/16 14:48 09/22/16 14:48 - Notes Notes: PHYSICAL EXAM GENERAL: Alert, interacts well. HEAD: Normocephalic, atraumatic. NECK: Full range of motion. Supple. Trachea midline. LUNGS: Clear to auscultation bilaterally, no wheezes, rales, or rhonchi. No respiratory distress. HEART: Regular rate and rhythm. No murmurs, gallops, or rubs. ABDOMEN: Soft, obese, nondistended, minimal tenderness at the epigastrum. No guarding, rebound, or rigidity.. Bowel sounds present in all 4 quadrants. EXTREMITIES: Moves all 4 extremities spontaneously. No edema, radial and dorsalis pedis pulses 2/4 bilaterally. No cyanosis. NEUROLOGICAL: Alert and oriented x4. Normal speech. PSYCH: Normal affect, normal mood. SKIN: Warm, dry, normal turgor. No rashes or lesions noted. Course - Re-evaluation Re-evalutation: 09/22/16 18:25 No evidence of perforation on acute abdomen series. Patient received p.o. GI cocktail and Pepcid with improvement in her symptoms. Discharge patient home with instructions to follow-up with primary care and gastroenterology. - Vital Signs Vital signs: Temp Pulse Resp BP Pulse Ox 97.7 F 109 H 20 117/80 97 09/22/16 18:06 09/22/16 18:06 09/22/16 18:06 09/22/16 18:06 09/22/16 18:06 - Laboratory Result Diagrams: 09/22/16 15:30 09/22/16 15:30 Laboratory results interpreted by me: 09/22/16 09/22/16 15:30 15:30 RDW 14.3 H Eosinophils % 14.6 H Absolute Eosinophils 1.3 H Chloride 96 L BUN 25 H Est GFR (Non-Af Amer) 51 L Glucose 308 H ALT 53 H Discharge - Discharge Clinical Impression: Epigastric abdominal pain Condition: Good Disposition: HOME, SELF-CARE Additional Instructions: Gastritis You have an inflammation of the stomach called gastritis. This commonly causes upper abdominal pain, nausea, and vomiting. In severe cases, bleeding of the stomach lining can occur. Gastritis can be caused by bacteria or viruses , alcohol, or stomach-irritating drugs. Begin with sips of clear liquids. Take increasing amounts of fluid over the first 24 hours. Then start small amounts of bland foods (such as dry toast , applesauce, mashed potato). Gradually resume your usual diet. You should take antacids every two hours until the pain has subsided. Acid -suppressing drugs may be prescribed as well. Avoid aspirin, caffeine, tobacco , and alcohol. If the abdominal pain worsens, or there is evidence of major bleeding in the stomach (such as black, tarry stool, bloody or black vomit, or lightheadedness), you should return immediately. Call the doctor if you aren't improved in 24 to 36 hours. Prescriptions: Nystatin/Dexameth/Diphen [Magic Mouthwash ([facility] Formula) Susp] 5 ml PO QID #120 ml Ondansetron [Zofran Odt 4 mg Tablet] 1 - 2 tab PO Q4H PRN #15 tab.rapdis PRN Reason: For Nausea/Vomiting Pantoprazole Sodium [Protonix] 40 mg PO DAILY 28 Days Forms: Elevated Blood Pressure Referrals: CALLIE HUERTA PA-C [Primary Care Provider] - Follow up in 1 week
--- NOTE | 2016-09-22 16:44 | RADIOLOGY REPORT (SQ) ---
EXAM DESCRIPTION: ACUTE ABDOMEN SERIES COMPLETED DATE/TIME: 09/22/2016 4:33 pm REASON FOR STUDY: abdominal pain COMPARISON: None. NUMBER OF VIEWS: Three views. TECHNIQUE: Frontal chest, supine abdomen and upright abdomen radiographic images acquired. LIMITATIONS: None. FINDINGS: CHEST: Lungs clear of infiltrates. FREE AIR: None. No abnormal gas collections. BOWEL GAS PATTERN: Nonobstructive pattern. No dilated loops or air fluid levels. CALCIFICATIONS: No suspicious calcifications. HARDWARE: None in the abdomen. SOFT TISSUES: The liver appears to be prominent in size. BONES: Thoracolumbar spondylosis. Mild thoracic scoliosis. OTHER: No other significant finding. IMPRESSION: 1. Possible hepatomegaly. 2. Thoracic scoliosis with thoracolumbar spondylosis. TECHNICAL DOCUMENTATION: JOB ID: [id number] [employer]- All Rights Reserved
[2016-09-22] MEDS ORDERED: FAMOTIDINE 20 MG TABLET PO ONE (17:29)
[2016-09-22 18:08] VITALS: BP 117/80
== END 2016-09-22 18:08 | disposition home or self-care (01) ==
LOC: ER 14:44
DX: R10.13 Epigastric pain (principal); R10.10 Upper abdominal pain, unspecified; R11.0 Nausea; R51 Headache; F17.200 Nicotine dependence, unspecified, uncomplicated
CPT/HCPCS: 99284; 36415; 83690; 85025; 80053; 74022; J3490 ×4

== ENCOUNTER 2016-09-28 13:25 | Day surgery (SDC) | payer MEDICAID ==
[~2016-09-28 13:25] MED LIST: DIPHENHYDRAMINE HCL 50 MG/ML VIAL ONE; EPINEPHRINE INJ 1 MG/10 ML DISP.SYRIN ONE; FLUMAZENIL INJ 0.5 MG/5 ML VIAL IV ONE; GLUCAGON,HUMAN RECOMB 1 MG INJ ONE; MIDAZOLAM 2 MG/2 ML INJ ONE; NALOXONE HCL INJ/PF 0.4 MG/1 ML SDV ONE; ONDANSETRON HCL INJ/PF 4 MG/2 ML SDV ONE
[2016-09-28] MEDS: MIDAZOLAM 2 MG/2 ML INJ ONE ×3 (13:49→13:55)
[2016-09-28] MEDS: FENTANYL CITRATE INJ/PF 100 MCG/2 ML AMPUL ONE ×2 (13:51→13:54)
--- NOTE | 2016-09-28 14:09 | Operative Report ---
Operative Report DATE OF SURGERY: 09/28/16 Operative Report: The risks benefits and alternatives of the procedure explained to the patient in detail and informed consent is obtained.A GIF Olympus video scope was inserted into the patient's mouth and hypopharynx, the esophagus is identified intubated and insufflated, the scope was then advanced through the esophagus stomach and duodenum, retroflexion maneuver is done, the esophagus stomach and first and second portions of the duodenum examined. PREOPERATIVE DIAGNOSIS: Hematemesis, now resolved POSTOPERATIVE DIAGNOSIS: Small inflammatory polyp in the antrum. Gastritis status post biopsy. Duodenitis. Healed Angely-Coto tear OPERATION: EGD with biopsy SURGEON: NEGIN MARTINES ANESTHESIA: Moderate Sedation - 6 mg of Versed, 125 mcg of fentanyl. Conscious sedation monitoring time 30 minutes. TISSUE REMOVED OR ALTERED: Gastric mucosa specimen obtained with Helicobacter pylori COMPLICATIONS: None. ESTIMATED BLOOD LOSS: None. INTRAOPERATIVE FINDINGS: As noted above. PROCEDURE: Patient tolerated the procedure well. No immediate postprocedure complications are noted. Patient discharged in good condition. Discharge date 09/28/2016. Discharge diet: Regular. Discharge activity: Regular. 2-3 week follow-up to discuss findings. Patient is instructed to call the office or proceed to the emergency room should there be any further problems or questions. We will wait on biopsies.
[2016-09-28 15:03] VITALS: BP 139/74
== END 2016-09-28 15:03 | disposition home or self-care (01) ==
LOC: END 13:25
PROVIDERS: ATTEND Internal Medicine Gastroenterology
PROC: 0DB68ZX Excision of Stomach, Via Natural or Artificial Opening Endoscopic, Diagnostic (ICD-10-PCS; principal; 2016-09-28 13:30)
DX: K31.7 Polyp of stomach and duodenum (principal); K29.80 Duodenitis without bleeding; K29.50 Unspecified chronic gastritis without bleeding; Z87.19 Personal history of other diseases of the digestive system; I10 Essential (primary) hypertension; E11.9 Type 2 diabetes mellitus without complications; J45.909 Unspecified asthma, uncomplicated; E66.9 Obesity, unspecified; Z68.43 Body mass index [BMI] 50.0-59.9, adult
CPT/HCPCS: 43239; 82962; 88342 ×2; 88305 ×2; J2250; J3010; J0171; J1200; J1610; J2310; J2405; J3490

== ENCOUNTER 2016-10-27 10:42 | Emergency (ER) | payer OTHER, MEDICAID ==
[2016-10-27] MEDS ORDERED: ONDANSETRON 4 MG TAB.RAPDIS PO ONE (11:04)
[2016-10-27] MEDS ORDERED: IBUPROFEN 600 MG TABLET PO ONE (11:13)
[2016-10-27] MEDS ORDERED: OXYCODONE-ACETAMINOPHEN 5-325 MG TABLET PO ONE (11:13)
--- NOTE | 2016-10-27 11:16 | ER Document Report ---
ED GI/ - General Chief Complaint: Flank Pain Stated Complaint: FLANK PAIN/NAUSEA/DIARRHEA Time Seen by Provider: 10/27/16 11:04 Notes: Patient is a 56-year-old female, past medical history kidney stones many years ago, hysterectomy, hypertension, diabetes, presents with 2 days of right flank pain radiating to her groin, nausea and watery diarrhea. She denies hematemesis , blood in stool, fevers, dysuria, hematuria, chest pain, shortness of breath or rash. TRAVEL OUTSIDE OF THE [place] IN LAST 30 DAYS: No - Related Data Allergies/Adverse Reactions: levofloxacin [From Levaquin] Adverse Reaction (Intermediate, Verified 10/27/16 11:02) nausea and vomiting simvastatin [From Zocor] Adverse Reaction (Intermediate, Verified 10/27/16 11:02 ) rash Past Medical History - General Information source: Patient - Social History Smoking Status: Current Every Day Smoker Family History: Arthritis, CAD, CVA, DM, Hyperlipidemia, Hypertension, Malignancy Patient has suicidal ideation: No Patient has homicidal ideation: No - Past Medical History Cardiac Medical History: Reports: Hx Hypercholesterolemia, Hx Hypertension, Hx Heart Murmur Denies: Hx Coronary Artery Disease, Hx Heart Attack Pulmonary Medical History: Reports: Hx Asthma, Hx Bronchitis, Hx Pneumonia Denies: Hx COPD Neurological Medical History: Reports: Hx Migraine. Denies: Hx Cerebrovascular Accident, Hx Seizures Endocrine Medical History: Reports: Hx Diabetes Mellitus Type 2 Renal/ Medical History: Reports: Hx Kidney Stones. Denies: Hx Peritoneal Dialysis GI Medical History: Reports: Hx Gastroesophageal Reflux Disease, Hx Ulcer - gastric, Hx Colonoscopy, Hx Endoscopy Musculoskeltal Medical History: Reports Hx Arthritis, Reports Hx Musculoskeletal Trauma Psychiatric Medical History: Reports: Hx Depression Traumatic Medical History: Reports: Hx Fractures - wrist, both ankles Past Surgical History: Reports: Hx Hysterectomy, Hx Orthopedic Surgery - 2 L knee. Denies: Hx Pacemaker - Immunizations Immunizations up to date: Yes Hx Diphtheria, Pertussis, Tetanus Vaccination: Yes - 2012 Hx Pneumococcal Vaccination: 01/30/15 Review of Systems - Review of Systems Notes: REVIEW OF SYSTEMS: CONSTITUTIONAL: -fevers, -chills EENT: -eye pain, -difficulty swallowing, -nasal congestion CARDIOVASCULAR:-chest pain, -syncope. RESPIRATORY: -cough, -SOB GASTROINTESTINAL: +abdominal pain, +nausea, -vomiting, +diarrhea GENITOURINARY: -dysuria, -hematuria MUSCULOSKELETAL: -back pain, -neck pain SKIN: -rash or skin lesions. HEMATOLOGIC: -easy bruising or bleeding. LYMPHATIC: -swollen, enlarged glands. NEUROLOGICAL: -altered mental status or loss of consciousness, -headache, - neurologic symptoms PSYCHIATRIC: -anxiety, -depression. ALL OTHER SYSTEMS REVIEWED AND NEGATIVE. Physical Exam - Vital signs Vitals: Temp Pulse Resp BP Pulse Ox 97.3 F 66 22 H 147/81 H 97 10/27/16 10:50 10/27/16 10:50 10/27/16 10:50 10/27/16 10:50 10/27/16 10:50 - Notes Notes: PHYSICAL EXAMINATION: GENERAL: Uncomfortable. HEAD: Atraumatic, normocephalic. EYES: Pupils equal round and reactive to light, extraocular movements intact, sclera anicteric, conjunctiva are normal. ENT: nares patent, oropharynx clear without exudates. Moist mucous membranes. NECK: Normal range of motion, supple without lymphadenopathy LUNGS: Breath sounds clear to auscultation bilaterally and equal. No wheezes rales or rhonchi. HEART: Regular rate and rhythm without murmurs ABDOMEN: Soft, nontender, normoactive bowel sounds. No guarding, no rebound. No masses appreciated. EXTREMITIES: Normal range of motion, no pitting or edema. No cyanosis. NEUROLOGICAL: Cranial nerves grossly intact. Normal speech, normal gait. Normal sensory and motor exams. PSYCH: Normal mood, normal affect. SKIN: Warm, Dry, normal turgor, no rashes or lesions noted. Course - Re-evaluation Re-evalutation: Patient's CT abdomen and pelvis did not show any evidence of kidney stone or other acute processes. Labs and urine are unremarkable, other than hyperglycemia, but she does not have an anion gap or ketones in her urine. Patient provided with Reglan for possible diabetic gastroparesis and instructions to stay hydrated. She will follow-up with her primary care physician for further evaluation and treatment. - Vital Signs Vital signs: Temp Pulse Resp BP Pulse Ox 97.3 F 66 22 H 147/81 H 97 10/27/16 10:50 10/27/16 10:50 10/27/16 10:50 10/27/16 10:50 10/27/16 10:50 - Laboratory Result Diagrams: 10/27/16 12:00 10/27/16 12:00 Laboratory results interpreted by me: 10/27/16 10/27/16 10/27/16 11:16 12:00 12:00 RDW 14.2 H Chloride 95 L BUN 26 H Glucose 301 H Total Protein 8.3 H Urine Glucose (UA) >=500 H - Diagnostic Test Radiology reviewed: Image reviewed, Reports reviewed Radiology results interpreted by me: CT A/P: NAD Discharge - Discharge Clinical Impression: Right flank pain Condition: Stable Disposition: HOME, SELF-CARE Additional Instructions: ABDOMINAL PAIN: There are many causes of abdominal pain. Pain can mean a serious problem requiring surgery (such as appendicitis). It can also be an innocent problem that goes away on its own (such as a viral infection). Often, time must pass to determine the cause of pain. The physician does not feel that hospitalization is necessary, at present. Things may change within the next 24 hours. Call the doctor or come back for re- examination if any problems occur, such as: (1) Pain that becomes more severe, steady, or becomes concentrated in one specific area. Also, pain that is more severe with movement or coughing. (2) Vomiting that persists or becomes more frequent. (3) Blood in the vomitus, urine, or bowel movements. Blood in the stool may have a tarry or black appearance. (4) Shaking chills or fever greater than 100 degrees F. (5) The abdomen becomes more distended or swollen. (6) Bowel movements cease. (7) Failure to improve as expected. NORMAL EXAM AND WORKUP: At this time, your examination and workup show no significant abnormality. No significant abnormal physical findings are noted. All laboratory, EKG, and imaging (x-ray, CT scans, ultrasound) studies that were ordered show no significant abnormality. Although your examination and all studies that were ordered showed no significant abnormal finding, there are no examinations and no studies that are 100% accurate. There is always the possibility that some abnormality could exist and not be detected with physical examination or within the limits and capabilities of laboratory and other studies. You should return or follow up as you were instructed on your visit today for further evaluation if your symptoms do not resolve. ANTINAUSEA MEDICATION: You have been given a medication to suppress nausea and vomiting. This type of medication can be given as a shot, pill, or suppository. It will usually last for many hours. Pills and shots usually last six to eight hours, suppositories last about 12 hours. For the typical illness, only one or two doses of the medication may be necessary. Mild lightheadedness may occur. This type of medicine can cause drowsiness. Do not drive or operate dangerous machinery while under its influence. Do not mix with alcohol. See your doctor at once if you have muscle spasms or tightness, or uncontrollable motions (particularly of the neck, mouth, or jaw). Persistent vomiting or severe lightheadedness should also be evaluated by the physician. ANTISPASMODICS: You have been given a prescription for an antispasmodic medicine. This type of drug is used to decrease cramping and pain in the intestines. It is also used to decrease secretion of internal fluids (such as stomach acid in ulcer disease or pancreatic juice in pancreas disease). This medicine may cause drowsiness, especially with the first dose. Do not operate machinery or drive until all side effects have resolved. Do not combine with alcohol. Other common side effects include dry mouth and eyes. In older persons, antispasmodics can occasionally cause urinary retention, constipation, or trouble focusing the eyes. Glaucoma may be worsened by this medicine. FOLLOW-UP CARE: If you have been referred to a physician for follow-up care, call the physician s office for an appointment as you were instructed or within the next two days. If you experience worsening or a significant change in your symptoms, notify the physician immediately or return to the Emergency Department at any time for re-evaluation. Prescriptions: Dicyclomine HCl [Bentyl 20 mg Tablet] 20 mg PO QID #20 tablet Metoclopramide HCl [Reglan 10 mg Tablet] 1 - 2 tab PO ASDIR PRN #14 tablet PRN Reason: Referrals: FABIAN GAMEZ MD [ACTIVE STAFF] - Follow up as needed
[2016-10-27 12:05] LABS: APPEARANCE,URINE CLEAR; BILIRUBIN,URINE NEGATIVE (NEGATIVE); GLUCOSE, URINE >=500 mg/dL (NEGATIVE); KETONES,URINE NEGATIVE (NEGATIVE); LEUKOCYTE ESTERASE,URINE NEGATIVE (NEGATIVE); NITRITE,URINE NEGATIVE (NEGATIVE); PROTEIN,URINE NEGATIVE (NEGATIVE); URINE SPECIFIC GRAVITY 1.018; UROBILINOGEN,URINE NEGATIVE mg/dL (<2.0)
--- NOTE | 2016-10-27 12:21 | RADIOLOGY REPORT (SQ) ---
EXAM DESCRIPTION: CT ABD/PELVIS NO ORAL OR IV COMPLETED DATE/TIME: 10/27/2016 11:57 am REASON FOR STUDY: right flank pain into groin COMPARISON: 10/27/2014 TECHNIQUE: CT scan of the abdomen and pelvis performed without intravenous or oral contrast. Images reviewed with lung, soft tissue, and bone windows. Reconstructed coronal and sagittal MPR images revi ewed. All images stored on PACS. All CT scanners at this facility use dose modulation, iterative reconstruction, and/or weight based d osing when appropriate to reduce radiation dose to as low as reasonably achievable (ALARA). [facility]: Dose Right [facility]: CareDose [facility]: Dose Right [facility]: Teradose 4D [facility]: [employer] RADIATION DOSE: Up-to-date CT equipment and radiation dose reduction techniques were employed. CTDIv ol: 21.1 mGy. DLP: 1188 mGy-cm.mGy. LIMITATIONS: None. FINDINGS: LOWER CHEST: No significant findings. No nodules or infiltrates. NON-CONTRASTED LIVER, SPLEEN, ADRENALS: Evaluation limited by lack of IV contrast. No identified sign ificant masses. PANCREAS: No masses. No peripancreatic inflammatory changes. GALLBLADDER: No identified stones by CT criteria. No inflammatory changes to suggest cholecystitis. RIGHT KIDNEY AND URETER: No suspicious masses. Assessment limited by lack of IV contrast. No signif icant calcifications. No hydronephrosis or hydroureter. LEFT KIDNEY AND URETER: No suspicious masses. Assessment limited by lack of IV contrast. No signifi cant calcifications. No hydronephrosis or hydroureter. AORTA AND RETROPERITONEUM: No aneurysm. No retroperitoneal masses or adenopathy. BOWEL AND PERITONEAL CAVITY: No obvious masses or inflammatory changes. No free fluid. APPENDIX: Normal. PELVIS, BLADDER, AND ABDOMINAL WALL:The urinary bladder is incompletely filled cannot be well evaluat ed. The uterus is absent. There is no adnexal mass or fluid collection. BONES: No significant findings. OTHER: No other significant finding. IMPRESSION: No urinary pathology is appreciated. There are no findings to explain the patient's sulma n. TECHNICAL DOCUMENTATION: JOB ID: [id number] Quality ID # [id number]: Final reports with documentation of one or more dose reduction techniques (e.g., Au tomated exposure control, adjustment of the mA and/or kV according to patient size, use of iterative reconstruction technique) 2010 [employer]- All Rights Reserved
[2016-10-27 12:22] LABS: ABSOLUTE BASOPHILS # (AUTO) 0.1 10^3/uL (0.0-0.2); ABSOLUTE EOSINOPHILS # (AUTO) 0.2 10^3/uL (0.0-0.6); ABSOLUTE LYMPHOCYTES (AUTO) 3.2 10^3/uL (0.5-4.7); ABSOLUTE MONOCYTES (AUTO) 0.5 10^3/uL (0.1-1.4); ABSOLUTE NEUT (AUTO) 6.2 10^3/uL (1.7-8.2); BASOPHILS % (AUTO) 0.8 % (0-2); EOSINOPHILS % (AUTO) 1.7 % (0-6); HEMATOCRIT 41.1 % (36.0-47.0); HEMOGLOBIN 13.6 g/dL (12.0-15.5); HGB HCT DIFFERENCE -0.3; LYMPHOCYTES % (AUTO) 31.4 % (13-45); MEAN CORPUSCULAR HEMOGLOBIN 28.5 pg (27.0-33.4); MEAN CORPUSCULAR VOLUME 86 fl (80-97); MONOCYTES % (AUTO) 5.2 % (3-13); RED BLOOD COUNT 4.75 10^6/uL (3.72-5.28); RED CELL DISTRIBUTION WIDTH 14.2 % (11.5-14.0); SEGMENTED NEUTROPHILS % (AUTO) 60.9 % (42-78); WHITE BLOOD COUNT 10.2 10^3/uL (4.0-10.5)
[2016-10-27 12:36] LABS: ALANINE AMINOTRANSFERASE 46 U/L (9-52); ALBUMIN 4.4 g/dL (3.5-5.0); ALKALINE PHOSPHATASE 99 U/L (38-126); ANION GAP 14 (5-19); ASPARTATE AMINO TRANSFERASE 26 U/L (14-36); BILIRUBIN,DIRECT 0.4 mg/dL (0.0-0.4); BILIRUBIN,TOTAL 0.7 mg/dL (0.2-1.3); BLOOD UREA NITROGEN 26 mg/dL (7-20); CALCIUM 9.6 mg/dL (8.4-10.2); CARBON DIOXIDE 28 mmol/L (22-30); CHLORIDE 95 mmol/L (98-107); CREATININE RESULT 0.92 mg/dL (0.52-1.25); GLUCOSE 301 mg/dL (75-110); LIPASE 73.7 U/L (23-300); POTASSIUM 4.7 mmol/L (3.6-5.0); TOTAL PROTEIN 8.3 g/dL (6.3-8.2)
[2016-10-27 13:09] VITALS: BP 125/58
== END 2016-10-27 13:00 | disposition home or self-care (01) ==
LOC: ER 10:42
DX: R10.9 Unspecified abdominal pain (principal); R11.0 Nausea; R19.7 Diarrhea, unspecified; F17.200 Nicotine dependence, unspecified, uncomplicated
CPT/HCPCS: 99284; 36415; 83690; 85025; 80053; 81001; 74176; S0119

== ENCOUNTER 2016-10-31 18:27 | Emergency (ER) | payer OTHER, MEDICAID ==
[2016-10-31] MEDS ORDERED: METOCLOPRAMIDE HCL ORAL SOLN 10 MG/10 ML UDCUP PO ONE (19:40)
[2016-10-31] MEDS ORDERED: MAG HYDROX/AL HYDROX/SIMETH SUSP 30 ML UDCUP PO ONE (19:40)
[2016-10-31] MEDS ORDERED: LIDOCAINE 2% VISCOUS SOLN 20 ML UDCUP PO ONE (19:40)
--- NOTE | 2016-10-31 19:40 | ER Document Report ---
ED Medical Screen (RME) - General Chief Complaint: Abdominal Pain Stated Complaint: DIZZENESS Time Seen by Provider: 10/31/16 19:37 Notes: Pt 56-year-old female, past medical history diabetes, present with epigastric pain for the past 2 days with nausea and elevated blood sugars. In in the emergency room last week for similar complaints and epigastric pain resolved. She received a cortisone injection by Ortho this week. His BG was 447 and she was told to go to the ER. PE: mild epigastric tenderness, RRR I have greeted and performed a rapid initial assessment of this patient. A comprehensive ED assessment and evaluation of the patient, analysis of test results and completion of the medical decision making process will be conducted by additional ED providers. TRAVEL OUTSIDE OF THE [place] IN LAST 30 DAYS: No - Related Data Allergies/Adverse Reactions: levofloxacin [From Levaquin] Adverse Reaction (Intermediate, Verified 10/31/16 18:39) nausea and vomiting simvastatin [From Zocor] Adverse Reaction (Intermediate, Verified 10/31/16 18:39 ) rash Past Medical History - Social History Chew tobacco use (# tins/day): No Frequency of alcohol use: None Drug Abuse: None - Past Medical History Cardiac Medical History: Reports: Hx Hypercholesterolemia, Hx Hypertension, Hx Heart Murmur Denies: Hx Coronary Artery Disease, Hx Heart Attack Pulmonary Medical History: Reports: Hx Asthma, Hx Bronchitis, Hx Pneumonia Denies: Hx COPD Neurological Medical History: Reports: Hx Migraine. Denies: Hx Cerebrovascular Accident, Hx Seizures Endocrine Medical History: Reports: Hx Diabetes Mellitus Type 2 Renal/ Medical History: Reports: Hx Kidney Stones. Denies: Hx Peritoneal Dialysis GI Medical History: Reports: Hx Gastroesophageal Reflux Disease, Hx Ulcer - gastric, Hx Colonoscopy, Hx Endoscopy Musculoskeltal Medical History: Reports Hx Arthritis, Reports Hx Musculoskeletal Trauma Psychiatric Medical History: Reports: Hx Depression Traumatic Medical History: Reports: Hx Fractures - wrist, both ankles Past Surgical History: Reports: Hx Hysterectomy, Hx Orthopedic Surgery - 2 L knee. Denies: Hx Pacemaker - Immunizations Immunizations up to date: Yes Hx Diphtheria, Pertussis, Tetanus Vaccination: Yes - 2012 Physical Exam - Vital signs Vitals: Temp Pulse Resp BP Pulse Ox 98.2 F 80 18 141/80 H 95 10/31/16 18:37 10/31/16 18:37 10/31/16 18:37 10/31/16 18:37 10/31/16 18:37 Course - Vital Signs Vital signs: Temp Pulse Resp BP Pulse Ox 98.2 F 80 18 141/80 H 95 10/31/16 18:37 10/31/16 18:37 10/31/16 18:37 10/31/16 18:37 10/31/16 18:37
[2016-10-31 20:12] LABS: ABSOLUTE EOSINOPHILS # (AUTO) 0.7 10^3/uL (0.0-0.6); ABSOLUTE LYMPHOCYTES (AUTO) 2.7 10^3/uL (0.5-4.7); ABSOLUTE MONOCYTES (AUTO) 0.4 10^3/uL (0.1-1.4); ABSOLUTE NEUT (AUTO) 4.7 10^3/uL (1.7-8.2); BASOPHILS % (AUTO) 0.5 % (0-2); EOSINOPHILS % (AUTO) 8.6 % (0-6); HEMATOCRIT 42.9 % (36.0-47.0); HEMOGLOBIN 13.8 g/dL (12.0-15.5); HGB HCT DIFFERENCE -1.5; LYMPHOCYTES % (AUTO) 31.6 % (13-45); MEAN CORPUSCULAR HEMOGLOBIN 27.9 pg (27.0-33.4); MEAN CORPUSCULAR HGB CONC 32.1 g/dL (32.0-36.0); MEAN CORPUSCULAR VOLUME 87 fl (80-97); MONOCYTES % (AUTO) 5.1 % (3-13); RED BLOOD COUNT 4.94 10^6/uL (3.72-5.28); RED CELL DISTRIBUTION WIDTH 13.6 % (11.5-14.0); SEGMENTED NEUTROPHILS % (AUTO) 54.2 % (42-78); WHITE BLOOD COUNT 8.6 10^3/uL (4.0-10.5)
[2016-10-31 20:19] LABS: ALANINE AMINOTRANSFERASE 54 U/L (9-52); ALBUMIN 4.2 g/dL (3.5-5.0); ALKALINE PHOSPHATASE 115 U/L (38-126); ANION GAP 11 (5-19); ASPARTATE AMINO TRANSFERASE 34 U/L (14-36); BILIRUBIN,DIRECT 0.3 mg/dL (0.0-0.4); BILIRUBIN,TOTAL 0.6 mg/dL (0.2-1.3); BLOOD UREA NITROGEN 17 mg/dL (7-20); CALCIUM 9.5 mg/dL (8.4-10.2); CARBON DIOXIDE 30 mmol/L (22-30); CHLORIDE 93 mmol/L (98-107); CREATINE KINASE 35 U/L (30-135); CREATININE RESULT 0.82 mg/dL (0.52-1.25); LIPASE 47.5 U/L (23-300); POTASSIUM 4.7 mmol/L (3.6-5.0); SODIUM 134.1 mmol/L (137-145); TOTAL PROTEIN 7.8 g/dL (6.3-8.2)
--- NOTE | 2016-10-31 20:28 | ER Document Report ---
ED General - General Chief Complaint: Abdominal Pain Stated Complaint: DIZZENESS Time Seen by Provider: 10/31/16 19:37 Notes: Patient is a 56-year-old female with type 2 diabetes that comes emergency department for chief complaint of elevated blood sugar, nausea, and epigastric tenderness for the past 2 days. She is on Protonix for peptic ulcer disease, had a endoscopy last month which she was told was normal. She denies black or bloody stools, vomiting, fever. Patient states that she had a steroid injection by orthopedics within the past week, TRAVEL OUTSIDE OF THE [place] IN LAST 30 DAYS: No - Related Data Allergies/Adverse Reactions: levofloxacin [From Levaquin] Adverse Reaction (Intermediate, Verified 10/31/16 18:39) nausea and vomiting simvastatin [From Zocor] Adverse Reaction (Intermediate, Verified 10/31/16 18:39 ) rash Past Medical History - General Information source: Patient - Social History Smoking Status: Never Smoker Chew tobacco use (# tins/day): No Frequency of alcohol use: None Drug Abuse: None Lives with: Family Family History: Arthritis, CAD, CVA, DM, Hyperlipidemia, Hypertension, Malignancy Patient has suicidal ideation: No Patient has homicidal ideation: No - Past Medical History Cardiac Medical History: Reports: Hx Hypercholesterolemia, Hx Hypertension, Hx Heart Murmur Denies: Hx Coronary Artery Disease, Hx Heart Attack Pulmonary Medical History: Reports: Hx Asthma, Hx Bronchitis, Hx Pneumonia Denies: Hx COPD Neurological Medical History: Reports: Hx Migraine. Denies: Hx Cerebrovascular Accident, Hx Seizures Endocrine Medical History: Reports: Hx Diabetes Mellitus Type 2 Renal/ Medical History: Reports: Hx Kidney Stones. Denies: Hx Peritoneal Dialysis GI Medical History: Reports: Hx Gastroesophageal Reflux Disease, Hx Ulcer - gastric, Hx Colonoscopy, Hx Endoscopy Musculoskeltal Medical History: Reports Hx Arthritis, Reports Hx Musculoskeletal Trauma Psychiatric Medical History: Reports: Hx Depression Traumatic Medical History: Reports: Hx Fractures - wrist, both ankles Past Surgical History: Reports: Hx Hysterectomy, Hx Orthopedic Surgery - 2 L knee. Denies: Hx Pacemaker - Immunizations Immunizations up to date: Yes Hx Diphtheria, Pertussis, Tetanus Vaccination: Yes - 2012 Hx Pneumococcal Vaccination: 01/30/15 Review of Systems - Review of Systems Constitutional: See HPI EENT: No symptoms reported Cardiovascular: See HPI Respiratory: No symptoms reported Gastrointestinal: No symptoms reported Genitourinary: No symptoms reported Female Genitourinary: No symptoms reported Musculoskeletal: No symptoms reported Skin: No symptoms reported Hematologic/Lymphatic: No symptoms reported Neurological/Psychological: See HPI Physical Exam - Vital signs Vitals: Temp Pulse Resp BP Pulse Ox 98.2 F 80 18 141/80 H 95 10/31/16 18:37 10/31/16 18:37 10/31/16 18:37 10/31/16 18:37 10/31/16 18:37 Interpretation: Normal - General General appearance: Appears well, Alert In distress: None - HEENT Head: Normocephalic, Atraumatic Eyes: Normal Pupils: PERRL - Respiratory Respiratory status: No respiratory distress Chest status: Nontender. No: Accessory muscle use Breath sounds: Normal. No: Decreased air movement, Wheezing Chest palpation: Normal - Cardiovascular Rhythm: Regular. No: Tachycardia Heart sounds: Normal auscultation, S1 appreciated, S2 appreciated Murmur: No - Abdominal Inspection: Normal Distension: No distension Bowel sounds: Normal Tenderness: Nontender. No: Tender, Guarding Organomegaly: No organomegaly - Back Back: Normal, Nontender. No: Tender, CVA tenderness - Extremities General upper extremity: Normal inspection, Nontender, Normal color, Normal ROM , Normal temperature General lower extremity: Normal inspection, Nontender, Normal color, Normal ROM , Normal temperature, Normal weight bearing. No: Shasta's sign - Neurological Neuro grossly intact: Yes Cognition: Normal Orientation: AAOx4 [place] Coma Scale Eye Opening: Spontaneous [place] Coma Scale Verbal: Oriented [place] Coma Scale Motor: Obeys Commands [place] Coma Scale Total: 15 Speech: Normal Motor strength normal: LUE, RUE, LLE, RLE Sensory: Normal - Psychological Associated symptoms: Normal affect, Normal mood - Skin Skin Temperature: Warm Skin Moisture: Dry Skin Color: Normal Course - Re-evaluation Re-evalutation: Patient hyperglycemic, anion gap and bicarbonate are unremarkable. She is not tachycardic, she is well-appearing on examination. She is reporting abdominal pain although I do not note any concerning abnormality on examination, lipase and chemistry unremarkable otherwise. No leukocytosis. Very low suspicion of any acute abdomen or ACS based on workup. Treated with insulin, IV fluids, by mouth medications, after the symptoms resolved, patient smiling, patient states she is ready to leave. Admits that she is eating "whatever she wants" according to her and her , she is eating a lot of carbohydrates, advised that especially with recent steroids that she needs to avoid this, continue her current regimen, follow-up with primary for additional monitoring and treatment, and return for any return or worsening symptoms. They state understanding and agreement. - Vital Signs Vital signs: Temp Pulse Resp BP Pulse Ox 97.9 F 73 14 122/65 95 11/01/16 00:20 11/01/16 00:20 11/01/16 00:20 11/01/16 00:20 11/01/16 00:20 - Laboratory Result Diagrams: 10/31/16 19:56 10/31/16 19:56 Laboratory results interpreted by me: 10/31/16 10/31/16 10/31/16 19:56 19:56 22:26 Plt Count 142 L Eosinophils % 8.6 H Absolute Eosinophils 0.7 H Sodium 134.1 L Chloride 93 L Glucose 439 H* POC Glucose 340 H ALT 54 H 10/31/16 23:48 Plt Count Eosinophils % Absolute Eosinophils Sodium Chloride Glucose POC Glucose 270 H ALT Discharge - Discharge Clinical Impression: Lightheadedness, Hyperglycemia, Abdominal pain Condition: Stable Disposition: HOME, SELF-CARE Additional Instructions: Continue your current medications for blood sugar control. Because of the recent steroid dose, be extra careful to avoid carbohydrates in your diet. Drink plenty of fluids. Follow-up with primary care. Return to emergency department for any concerning or worsening symptoms including returned or worsening abdominal pain, vomiting, etc. Referrals: CALLIE HUERTA PA-C [Primary Care Provider] - Follow up as needed
[2016-10-31 20:29] LABS: GLUCOSE 439 mg/dL (75-110)
[2016-10-31] MEDS ORDERED: INSULIN REG, HUMAN 100 UNIT/ML 3 ML VIAL (PYX) SUBCUT ONE (20:32)
[2016-10-31] MEDS ORDERED: NORMAL SALINE 1000 ML 1,000 ML IV ONE (20:32)
--- NOTE | 2016-10-31 21:40 | EKG REPORT ---
SEVERITY:- NORMAL ECG - SINUS RHYTHM : Confirmed by: Sloane Ramos 31-Oct-2016 21:40:29
[2016-10-31] MEDS ORDERED: OXYCODONE-ACETAMINOPHEN 5-325 MG TABLET PO ONE (23:00)
[2016-11-01 00:24] VITALS: BP 122/65
== END 2016-11-01 00:20 | disposition home or self-care (01) ==
LOC: ER 18:27
DX: E11.65 Type 2 diabetes mellitus with hyperglycemia (principal); R42 Dizziness and giddiness; K27.9 Peptic ulcer, site unspecified, unspecified as acute or chronic, without hemorrhage or perforation; I10 Essential (primary) hypertension; J45.909 Unspecified asthma, uncomplicated; Z79.899 Other long term (current) drug therapy
CPT/HCPCS: 93005; 99285; 36415; 82962; 82550; 83690; 85025; 80053; 84484; 93010; J3490; J1815; J7030

== ENCOUNTER 2016-11-22 00:46 | Emergency (ER) | payer OTHER, MEDICAID ==
[2016-11-22] MEDS ORDERED: KETOROLAC TROMETHAMINE INJ/PF 30 MG/1 ML SDV IV ONE (01:47)
[2016-11-22] MEDS ORDERED: ONDANSETRON HCL INJ/PF 4 MG/2 ML SDV IV ONE (01:47)
[2016-11-22] MEDS ORDERED: NORMAL SALINE 1000 ML 1,000 ML IV PRN ×2 (01:47→02:38)
--- NOTE | 2016-11-22 01:47 | ER Document Report ---
ED GI/ - General Chief Complaint: Flank Pain Stated Complaint: FLANK PAIN RIGHT SIDE Time Seen by Provider: 11/22/16 01:13 Mode of Arrival: Ambulatory Information source: Patient TRAVEL OUTSIDE OF THE [place] IN LAST 30 DAYS: No - HPI Patient complains to provider of: Flank pain Onset: This afternoon Timing/Duration: Gradual Quality of pain: Sharp Severity at maximum: Moderate Severity in ED: Moderate Location: Right flank Associated symptoms: Diarrhea, Nausea, Urinary frequency, Vomiting Exacerbated by: Denies Relieved by: Denies Similar symptoms previously: Yes Recently seen / treated by doctor: Yes Notes: 11/22/16 05:05 Patient is a 56-year-old female who presents to the emergency room complaining of right-sided flank pain that started earlier today, reports associated with nausea, vomiting and diarrhea, reports urinary frequency but no hematuria, she denies a history of similar symptoms previously, however patient was seen in this emergency room on October [id number] for similar symptoms and in fact has a long history of similar complaints with frequent visits to this emergency room - Related Data Allergies/Adverse Reactions: levofloxacin [From Levaquin] Adverse Reaction (Intermediate, Verified 11/22/16 00:51) nausea and vomiting simvastatin [From Zocor] Adverse Reaction (Intermediate, Verified 11/22/16 00:51 ) rash Past Medical History - General Information source: Patient - Social History Smoking Status: Unknown if Ever Smoked Family History: Arthritis, CAD, CVA, DM, Hyperlipidemia, Hypertension, Malignancy - Past Medical History Cardiac Medical History: Reports: Hx Hypercholesterolemia, Hx Hypertension, Hx Heart Murmur Denies: Hx Coronary Artery Disease, Hx Heart Attack Pulmonary Medical History: Reports: Hx Asthma, Hx Bronchitis, Hx Pneumonia Denies: Hx COPD Neurological Medical History: Reports: Hx Migraine. Denies: Hx Cerebrovascular Accident, Hx Seizures Endocrine Medical History: Reports: Hx Diabetes Mellitus Type 2 Renal/ Medical History: Reports: Hx Kidney Stones. Denies: Hx Peritoneal Dialysis GI Medical History: Reports: Hx Gastroesophageal Reflux Disease, Hx Ulcer - gastric, Hx Colonoscopy, Hx Endoscopy Musculoskeltal Medical History: Reports Hx Arthritis, Reports Hx Musculoskeletal Trauma Psychiatric Medical History: Reports: Hx Depression Traumatic Medical History: Reports: Hx Fractures - wrist, both ankles Past Surgical History: Reports: Hx Hysterectomy, Hx Orthopedic Surgery - 2 L knee. Denies: Hx Pacemaker - Immunizations Immunizations up to date: Yes Hx Diphtheria, Pertussis, Tetanus Vaccination: Yes - 2012 Hx Pneumococcal Vaccination: 01/30/15 Review of Systems - Review of Systems Constitutional: No symptoms reported EENT: No symptoms reported Cardiovascular: No symptoms reported Respiratory: No symptoms reported Gastrointestinal: See HPI Genitourinary: See HPI Female Genitourinary: No symptoms reported Musculoskeletal: No symptoms reported Skin: No symptoms reported Hematologic/Lymphatic: No symptoms reported Neurological/Psychological: No symptoms reported -: Yes All other systems reviewed and negative Physical Exam - Vital signs Vitals: Temp Pulse Resp BP Pulse Ox 97.5 F 89 22 H 132/87 H 96 11/22/16 00:50 11/22/16 00:50 11/22/16 00:50 11/22/16 00:50 11/22/16 00:50 Interpretation: Normal - General General appearance: Appears well, Alert - HEENT Head: Normocephalic, Atraumatic Eyes: Normal Pupils: PERRL - Respiratory Respiratory status: No respiratory distress Chest status: Nontender Breath sounds: Normal Chest palpation: Normal - Cardiovascular Rhythm: Regular Heart sounds: Normal auscultation Murmur: No - Abdominal Inspection: Morbidly Obese Distension: No distension Bowel sounds: Normal Tenderness: Tender - Right flank tenderness Organomegaly: No organomegaly - Back Back: Normal, Nontender - Extremities General upper extremity: Normal inspection, Nontender, Normal color, Normal ROM , Normal temperature General lower extremity: Normal inspection, Nontender, Normal color, Normal ROM , Normal temperature, Normal weight bearing. No: Shasta's sign - Neurological Neuro grossly intact: Yes Cognition: Normal Orientation: AAOx4 [place] Coma Scale Eye Opening: Spontaneous [place] Coma Scale Verbal: Oriented [place] Coma Scale Motor: Obeys Commands [place] Coma Scale Total: 15 Speech: Normal Motor strength normal: LUE, RUE, LLE, RLE Sensory: Normal - Psychological Associated symptoms: Normal affect, Normal mood - Skin Skin Temperature: Warm Skin Moisture: Dry Skin Color: Normal Course - Re-evaluation Re-evalutation: 11/22/16 05:06 Patient laboratory findings are unremarkable except for elevated blood sugar, she was provided with IV fluids and insulin, and lab findings were discussed with patient at bedside, she does report symptoms to be improved on reevaluation , abdomen is soft and nontender, vital signs are stable, patient has a history of similar symptoms in the past with normal workup, in fact has been in the emergency room frequently for similar complaints in the past, patient therefore was discharged with instructions to follow-up with her primary care provider or return if symptoms worsen, patient acknowledges understanding and agreement with this plan - Vital Signs Vital signs: Temp Pulse Resp BP Pulse Ox 98.6 F 75 20 108/63 96 11/22/16 04:54 11/22/16 04:54 11/22/16 04:54 11/22/16 04:54 11/22/16 04:54 - Laboratory Result Diagrams: 11/22/16 01:55 11/22/16 01:55 Laboratory results interpreted by me: 11/22/16 11/22/16 11/22/16 01:55 01:55 02:12 Plt Count 142 L Sodium 133.3 L Chloride 96 L Glucose 467 H* POC Glucose AST 49 H ALT 61 H Urine Glucose (UA) >=500 H Urine Ketones TRACE H 11/22/16 04:42 Plt Count Sodium Chloride Glucose POC Glucose 351 H AST ALT Urine Glucose (UA) Urine Ketones Discharge - Discharge Clinical Impression: Hyperglycemia Abdominal pain Qualifiers: Abdominal location: right upper quadrant Qualified Code(s): R10.11 - Right upper quadrant pain Condition: Stable Disposition: HOME, SELF-CARE Instructions: Abdominal Pain ([facility]), Diabetes ([facility]) Additional Instructions: Follow up with your primary care provider in one to 2 days. Return to the emergency room immediately if symptoms worsen or any additional concerns.
[2016-11-22 02:04] LABS: ABSOLUTE BASOPHILS # (AUTO) 0.1 10^3/uL (0.0-0.2); ABSOLUTE EOSINOPHILS # (AUTO) 0.3 10^3/uL (0.0-0.6); ABSOLUTE LYMPHOCYTES (AUTO) 2.1 10^3/uL (0.5-4.7); ABSOLUTE MONOCYTES (AUTO) 0.4 10^3/uL (0.1-1.4); ABSOLUTE NEUT (AUTO) 3.8 10^3/uL (1.7-8.2); HEMATOCRIT 42.4 % (36.0-47.0); HEMOGLOBIN 14.2 g/dL (12.0-15.5); HGB HCT DIFFERENCE 0.2; LYMPHOCYTES % (AUTO) 31.1 % (13-45); MEAN CORPUSCULAR HEMOGLOBIN 28.6 pg (27.0-33.4); MEAN CORPUSCULAR HGB CONC 33.4 g/dL (32.0-36.0); MEAN CORPUSCULAR VOLUME 86 fl (80-97); MONOCYTES % (AUTO) 5.4 % (3-13); RED BLOOD COUNT 4.96 10^6/uL (3.72-5.28); RED CELL DISTRIBUTION WIDTH 13.6 % (11.5-14.0); SEGMENTED NEUTROPHILS % (AUTO) 57.5 % (42-78); WHITE BLOOD COUNT 6.6 10^3/uL (4.0-10.5)
[2016-11-22 02:26] LABS: ALANINE AMINOTRANSFERASE 61 U/L (9-52); ALBUMIN 4.4 g/dL (3.5-5.0); ALKALINE PHOSPHATASE 108 U/L (38-126); ANION GAP 13 (5-19); ASPARTATE AMINO TRANSFERASE 49 U/L (14-36); BILIRUBIN,DIRECT 0.4 mg/dL (0.0-0.4); BILIRUBIN,TOTAL 0.8 mg/dL (0.2-1.3); BLOOD UREA NITROGEN 18 mg/dL (7-20); CALCIUM 9.5 mg/dL (8.4-10.2); CARBON DIOXIDE 24 mmol/L (22-30); CHLORIDE 96 mmol/L (98-107); CREATININE RESULT 0.79 mg/dL (0.52-1.25); POTASSIUM 4.2 mmol/L (3.6-5.0); SODIUM 133.3 mmol/L (137-145); TOTAL PROTEIN 7.9 g/dL (6.3-8.2)
[2016-11-22 02:31] LABS: APPEARANCE,URINE CLEAR; BILIRUBIN,URINE NEGATIVE (NEGATIVE); GLUCOSE, URINE >=500 mg/dL (NEGATIVE); KETONES,URINE TRACE mg/dL (NEGATIVE); LEUKOCYTE ESTERASE,URINE NEGATIVE (NEGATIVE); NITRITE,URINE NEGATIVE (NEGATIVE); PROTEIN,URINE NEGATIVE (NEGATIVE); URINE SPECIFIC GRAVITY 1.031; UROBILINOGEN,URINE NEGATIVE mg/dL (<2.0)
[2016-11-22 02:35] LABS: GLUCOSE 467 mg/dL (75-110)
[2016-11-22] MEDS ORDERED: INSULIN REG, HUMAN 100 UNIT/ML 3 ML VIAL (PYX) SUBCUT ONE (02:41)
[2016-11-22 04:59] VITALS: BP 108/63
== END 2016-11-22 04:59 | disposition home or self-care (01) ==
LOC: ER 00:46
DX: E11.65 Type 2 diabetes mellitus with hyperglycemia (principal); R10.11 Right upper quadrant pain; R11.2 Nausea with vomiting, unspecified; R19.7 Diarrhea, unspecified; R35.0 Frequency of micturition; I10 Essential (primary) hypertension; E66.01 Morbid (severe) obesity due to excess calories; J45.909 Unspecified asthma, uncomplicated; G43.909 Migraine, unspecified, not intractable, without status migrainosus; R01.1 Cardiac murmur, unspecified; K21.9 Gastro-esophageal reflux disease without esophagitis; Z87.442 Personal history of urinary calculi; F32.9 Major depressive disorder, single episode, unspecified; M19.90 Unspecified osteoarthritis, unspecified site; Z68.43 Body mass index [BMI] 50.0-59.9, adult; Z88.3 Allergy status to other anti-infective agents; Z88.8 Allergy status to other drugs, medicaments and biological substances; Z82.61 Family history of arthritis; Z82.3 Family history of stroke; Z83.3 Family history of diabetes mellitus; Z80.9 Family history of malignant neoplasm, unspecified; Z82.49 Family history of ischemic heart disease and other diseases of the circulatory system
CPT/HCPCS: 99284; 96361; 96374; 96375; 36415; 87086; 82962; 83690; 85025; 80053; 81001; J1885; J1815; J2405; J7030

== ENCOUNTER 2017-01-08 21:16 | Emergency (ER) | payer OTHER, MEDICAID ==
--- NOTE | 2017-01-08 22:35 | ER Document Report ---
ED Dizziness/Weakness - General Mode of Arrival: Ambulatory Information source: Patient TRAVEL OUTSIDE OF THE [place] IN LAST 30 DAYS: No <SHIRLEY HAWKINS - Last Filed: 01/09/17 02:47> <RYAN BANKS - Last Filed: 01/09/17 09:43> - General Chief Complaint: Dizziness Stated Complaint: DIZZINESS - HPI Notes: Patient is a 56 year old female presenting to the emergency department for dizziness, headache, slight chest pain, heart racing and nausea. Patient also complains of slight abdominal pain that she has had previously. Patient also has had increased amounts of diarrhea but states she has diarrhea chronically. Patient denies any vomiting, fevers or recent antibiotic use. Patient states she has had problems with her gallbladder but states she has not had it out yet. Patient has been evaluated in this emergency department for similar symptoms multiple times previously. (SHIRLEY HAWKINS) - Related Data Allergies/Adverse Reactions: levofloxacin [From Levaquin] Adverse Reaction (Intermediate, Verified 01/08/17 21:18) nausea and vomiting simvastatin [From Zocor] Adverse Reaction (Intermediate, Verified 01/08/17 21:18 ) rash Past Medical History - General Information source: Patient - Social History Smoking Status: Never Smoker Cigarette use (# per day): No Chew tobacco use (# tins/day): No Smoking Education Provided: No Frequency of alcohol use: None Drug Abuse: None Family History: Arthritis, CAD, CVA, DM, Hyperlipidemia, Hypertension, Malignancy Patient has suicidal ideation: No Patient has homicidal ideation: No - Past Medical History Cardiac Medical History: Reports: Hx Hypercholesterolemia, Hx Hypertension, Hx Heart Murmur Pulmonary Medical History: Reports: Hx Asthma, Hx Bronchitis, Hx Pneumonia Neurological Medical History: Reports: Hx Migraine Endocrine Medical History: Reports: Hx Diabetes Mellitus Type 2 Renal/ Medical History: Reports: Hx Kidney Stones GI Medical History: Reports: Hx Gastroesophageal Reflux Disease, Hx Ulcer - gastric, Hx Colonoscopy, Hx Endoscopy Musculoskeltal Medical History: Reports Hx Arthritis, Reports Hx Musculoskeletal Trauma Psychiatric Medical History: Reports: Hx Depression Traumatic Medical History: Reports: Hx Fractures - wrist, both ankles Past Surgical History: Reports: Hx Hysterectomy, Hx Orthopedic Surgery - 2 L knee - Immunizations Immunizations up to date: Yes Hx Diphtheria, Pertussis, Tetanus Vaccination: Yes - 2012 Hx Pneumococcal Vaccination: 01/30/15 <SHIRLEY HAWKINS - Last Filed: 01/09/17 02:47> Review of Systems - Review of Systems Constitutional: No symptoms reported. denies: Fever EENT: No symptoms reported Cardiovascular: See HPI, Chest pain, Heart racing, Dizziness Respiratory: No symptoms reported Gastrointestinal: See HPI, Abdominal pain, Diarrhea, Nausea. denies: Vomiting Genitourinary: No symptoms reported Female Genitourinary: No symptoms reported Musculoskeletal: No symptoms reported Skin: No symptoms reported Hematologic/Lymphatic: No symptoms reported Neurological/Psychological: See HPI, Headaches -: Yes All other systems reviewed and negative <SHIRLEY HAWKINS - Last Filed: 01/09/17 02:47> Physical Exam - Vital signs Interpretation: Normal <SHIRLEY HAWKINS - Last Filed: 01/09/17 02:47> <RYAN BANKS - Last Filed: 01/09/17 09:43> - Vital signs Vitals: Temp Pulse Resp BP Pulse Ox 97.9 F 92 18 152/92 H 97 01/08/17 21:19 01/08/17 21:19 01/08/17 21:19 01/08/17 21:19 01/08/17 21:19 - Notes Notes: GENERAL: Alert, interacts well. No acute distress. HEAD: Normocephalic, atraumatic. EYES: Appear normal. Pupils equal, round, and reactive to light. ENT: Dry mucus membranes, tongue midline. NECK: Full range of motion. Supple. Trachea midline. LUNGS: Clear to auscultation bilaterally, no wheezes, rales, or rhonchi. No respiratory distress. HEART: Regular rate and rhythm. No murmurs, gallops, or rubs. ABDOMEN: Obese. Soft, Mild RUQ tenderness to palpation. Non-distended. Normal bowel sounds. EXTREMITIES: Moves all 4 extremities spontaneously. Normal strength. No edema. NEUROLOGICAL: Alert and oriented x3. Normal speech. No focal neurological deficits. GCS 15. PSYCH: Normal affect, normal mood. SKIN: Warm, dry, normal turgor. No rashes or lesions noted. (SHIRLEY HAWKINS) Course - Laboratory Result Diagrams: 01/08/17 23:15 01/08/17 23:15 <SHIRLEY HAWKINS - Last Filed: 01/09/17 02:47> - Laboratory Result Diagrams: 01/08/17 23:15 01/08/17 23:15 - Diagnostic Test Radiology reviewed: Reports reviewed <RYAN BANKS - Last Filed: 01/09/17 09:43> - Re-evaluation Re-evalutation: 01/08/17 23:58 Reevaluated patient at this time. Patient was updated on current lab work/ results. 01/09/17 02:47 Reevaluated patient at this time. Discussed ultrasound results with patient and her troponin is being repeated. Patient states her abdominal pain has been relieved but she still has a headache. (SHIRLEY HAWKINS) Patient with no acute findings on blood work except for some mild hyperglycemia. Patient with no acute findings on ultrasound. Patient with workup by gastroenterology which showed gastritis and duodenitis. Patient feels better after GI cocktail. Stable for d/c. F/u with GI as outpatient. (RYAN BANKS) - Vital Signs Vital signs: Temp Pulse Resp BP Pulse Ox 98.5 F 82 15 115/67 97 01/09/17 03:21 01/09/17 03:21 01/09/17 03:21 01/09/17 03:21 01/09/17 03:21 - Laboratory Laboratory results interpreted by me: 01/08/17 01/08/17 01/08/17 22:40 23:15 23:15 Plt Count 128 L Glucose 225 H Urine Glucose (UA) >=500 H Discharge <SHIRLEY HAWKINS - Last Filed: 01/09/17 02:47> <RYAN BANKS - Last Filed: 01/09/17 09:43> - Discharge Clinical Impression: Upper abdominal pain Condition: Stable Disposition: HOME, SELF-CARE Instructions: Evaluation of Upper Abdominal Pain ([facility]), Headache ([facility]) Prescriptions: Ondansetron [Zofran Odt 4 mg Tablet] 1 tab PO Q6HP PRN #30 tab.rapdis PRN Reason: For Nausea/Vomiting Famotidine [Pepcid 20 mg Tablet] 20 mg PO BID #60 tablet Sucralfate [Carafate 1 gm Tablet] 1 gm PO ACHS #120 tablet Scribe Attestation: 01/09/17 09:43 I personally performed the services described in the documentation, reviewed and edited the documentation which was dictated to the scribe in my presence, and it accurately records my words and actions. (RYAN BANKS) Scribe Documentation - Scribe Written by Scribshannon:: Eula Chaudhari 01/09/2017 00:41 acting as scribe for :: Fabiana <SHIRLEY HAWKINS - Last Filed: 01/09/17 02:47>
[2017-01-08 23:01] LABS: APPEARANCE,URINE CLEAR; BILIRUBIN,URINE NEGATIVE (NEGATIVE); GLUCOSE, URINE >=500 mg/dL (NEGATIVE); KETONES,URINE NEGATIVE (NEGATIVE); LEUKOCYTE ESTERASE,URINE NEGATIVE (NEGATIVE); NITRITE,URINE NEGATIVE (NEGATIVE); PROTEIN,URINE NEGATIVE (NEGATIVE); URINE SPECIFIC GRAVITY 1.012; UROBILINOGEN,URINE NEGATIVE mg/dL (<2.0)
[2017-01-08] MEDS ORDERED: NORMAL SALINE 1000 ML 1,000 ML IV ONE (23:11)
[2017-01-08] MEDS ORDERED: ONDANSETRON HCL INJ/PF 4 MG/2 ML SDV IV ONE (23:21)
[2017-01-08 23:28] LABS: ABSOLUTE EOSINOPHILS # (AUTO) 0.2 10^3/uL (0.0-0.6); ABSOLUTE LYMPHOCYTES (AUTO) 1.7 10^3/uL (0.5-4.7); ABSOLUTE MONOCYTES (AUTO) 0.3 10^3/uL (0.1-1.4); ABSOLUTE NEUT (AUTO) 3.7 10^3/uL (1.7-8.2); BASOPHILS % (AUTO) 0.8 % (0-2); EOSINOPHILS % (AUTO) 3.1 % (0-6); HEMOGLOBIN 13.6 g/dL (12.0-15.5); HGB HCT DIFFERENCE 0.8; LYMPHOCYTES % (AUTO) 28.6 % (13-45); MEAN CORPUSCULAR HEMOGLOBIN 29.4 pg (27.0-33.4); MEAN CORPUSCULAR HGB CONC 34.1 g/dL (32.0-36.0); MEAN CORPUSCULAR VOLUME 86 fl (80-97); MONOCYTES % (AUTO) 4.8 % (3-13); RED BLOOD COUNT 4.63 10^6/uL (3.72-5.28); RED CELL DISTRIBUTION WIDTH 13.6 % (11.5-14.0); SEGMENTED NEUTROPHILS % (AUTO) 62.7 % (42-78); WHITE BLOOD COUNT 5.9 10^3/uL (4.0-10.5)
[2017-01-08 23:43] LABS: ALANINE AMINOTRANSFERASE 43 U/L (9-52); ALBUMIN 4.3 g/dL (3.5-5.0); ALKALINE PHOSPHATASE 81 U/L (38-126); ANION GAP 12 (5-19); ASPARTATE AMINO TRANSFERASE 32 U/L (14-36); BILIRUBIN,DIRECT 0.4 mg/dL (0.0-0.4); BILIRUBIN,TOTAL 0.7 mg/dL (0.2-1.3); BLOOD UREA NITROGEN 20 mg/dL (7-20); CALCIUM 9.9 mg/dL (8.4-10.2); CARBON DIOXIDE 28 mmol/L (22-30); CHLORIDE 98 mmol/L (98-107); CREATININE RESULT 0.91 mg/dL (0.52-1.25); GLUCOSE 225 mg/dL (75-110); POTASSIUM 4.3 mmol/L (3.6-5.0); SODIUM 137.5 mmol/L (137-145); TOTAL PROTEIN 7.4 g/dL (6.3-8.2)
[2017-01-09] MEDS ORDERED: SUCRALFATE 1 GM TABLET PO ONE (00:16)
[2017-01-09] MEDS ORDERED: FAMOTIDINE INJ/PF 20 MG/2 ML SDV IV ONE (00:16)
[2017-01-09] MEDS ORDERED: NORMAL SALINE 1000 ML 1,000 ML IV ONE (00:37)
--- NOTE | 2017-01-09 01:06 | RADIOLOGY REPORT (SQ) ---
EXAM DESCRIPTION: U/S ABDOMEN LIMITED W/O DOP COMPLETED DATE/TIME: 01/09/2017 12:25 am REASON FOR STUDY: RUQ pain COMPARISON: CT abdomen and pelvis 10/27/2016. Right upper quadrant ultrasound 05/27/2016. TECHNIQUE: Grayscale images acquired of the right upper quadrant and recorded on PACS. Additional se lected color Doppler and spectral images recorded. LIMITATIONS: Patient's body habitus. Acoustical interference from fat or from air in the bowel. FINDINGS: PANCREAS: Partially obscured by overlying bowel gas. The visualized pancreas has increase d echogenicity, suggestive of fatty infiltration. LIVER: The liver measures 16.7 cm. Echotexture is coarse with increased echogenicity consistent with fatty infiltration. LIVER VASCULATURE: Normal directional flow of the main portal vein. GALLBLADDER: No stones. Normal wall thickness. No pericholecystic fluid. ULTRASOUND-DETECTED MERRITT'S SIGN: Negative. INTRAHEPATIC DUCTS AND COMMON DUCT: Visualized CBD normal caliber. The intrahepatic bile ducts were not well visualized. INFERIOR VENA CAVA: Patent visualized segment. AORTA: No aneurysm in the visualized segments. RIGHT KIDNEY: Measures 12.6 cm. No hydronephrosis. PERITONEAL CAVITY AND RIGHT PLEURAL SPACE: No ascites or effusion. IMPRESSION: No cholelithiasis. Fatty infiltration of the liver. TECHNICAL DOCUMENTATION: JOB ID: [id number] [employer]- All Rights Reserved
[2017-01-09] MEDS ORDERED: PROMETHAZINE HCL INJ 25 MG/1 ML VIAL IM ONE (01:26)
[2017-01-09] MEDS ORDERED: DIPHENHYDRAMINE HCL 50 MG/ML VIAL IV ONE (02:47)
[2017-01-09] MEDS ORDERED: PROCHLORPERAZINE EDISYLATE INJ 10 MG/2 ML VIAL IV ONE (02:47)
[2017-01-09 03:27] VITALS: BP 115/67
--- NOTE | 2017-01-09 08:21 | EKG REPORT ---
SEVERITY:- OTHERWISE NORMAL ECG - SINUS RHYTHM VENTRICULAR PREMATURE COMPLEX : Confirmed by: Hernan Hays MD 09-Jan-2017 08:19:39
== END 2017-01-09 03:28 | disposition home or self-care (01) ==
LOC: ER 21:16
DX: R10.10 Upper abdominal pain, unspecified (principal); R42 Dizziness and giddiness; R51 Headache; R07.9 Chest pain, unspecified; R11.0 Nausea; R19.7 Diarrhea, unspecified; E78.00 Pure hypercholesterolemia, unspecified; I10 Essential (primary) hypertension; J45.909 Unspecified asthma, uncomplicated; E11.9 Type 2 diabetes mellitus without complications; Z87.442 Personal history of urinary calculi; Z90.710 Acquired absence of both cervix and uterus
CPT/HCPCS: 93005; 99284; 96372; 96361; 96374; 96375; 36415; 85025; 80053; 81001; 84484; 76705; 93010; J1200; J0780; J2550; J2405; J7030; S0028

== ENCOUNTER 2017-04-07 22:15 | Emergency (ER) | payer OTHER, MEDICAID ==
[2017-04-07 23:21] LABS: ABSOLUTE BASOPHILS # (AUTO) 0.1 10^3/uL (0.0-0.2); ABSOLUTE EOSINOPHILS # (AUTO) 0.2 10^3/uL (0.0-0.6); ABSOLUTE LYMPHOCYTES (AUTO) 2.6 10^3/uL (0.5-4.7); ABSOLUTE MONOCYTES (AUTO) 0.4 10^3/uL (0.1-1.4); ABSOLUTE NEUT (AUTO) 6.2 10^3/uL (1.7-8.2); EOSINOPHILS % (AUTO) 2.1 % (0-6); HEMATOCRIT 44.8 % (36.0-47.0); HEMOGLOBIN 14.9 g/dL (12.0-15.5); HGB HCT DIFFERENCE -0.1; LYMPHOCYTES % (AUTO) 27.2 % (13-45); MEAN CORPUSCULAR HEMOGLOBIN 28.3 pg (27.0-33.4); MEAN CORPUSCULAR HGB CONC 33.2 g/dL (32.0-36.0); MEAN CORPUSCULAR VOLUME 85 fl (80-97); MONOCYTES % (AUTO) 4.6 % (3-13); RED BLOOD COUNT 5.25 10^6/uL (3.72-5.28); RED CELL DISTRIBUTION WIDTH 13.9 % (11.5-14.0); SEGMENTED NEUTROPHILS % (AUTO) 65.1 % (42-78); WHITE BLOOD COUNT 9.4 10^3/uL (4.0-10.5)
[2017-04-07 23:27] LABS: ALANINE AMINOTRANSFERASE 57 U/L (9-52); ALBUMIN 4.9 g/dL (3.5-5.0); ALKALINE PHOSPHATASE 103 U/L (38-126); ANION GAP 13 (5-19); ASPARTATE AMINO TRANSFERASE 38 U/L (14-36); BILIRUBIN,DIRECT 0.5 mg/dL (0.0-0.4); BILIRUBIN,TOTAL 0.7 mg/dL (0.2-1.3); BLOOD UREA NITROGEN 18 mg/dL (7-20); CALCIUM 10.3 mg/dL (8.4-10.2); CARBON DIOXIDE 31 mmol/L (22-30); CHLORIDE 95 mmol/L (98-107); CREATININE RESULT 0.93 mg/dL (0.52-1.25); GLUCOSE 296 mg/dL (75-110); LIPASE 453.4 U/L (23-300); POTASSIUM 4.8 mmol/L (3.6-5.0); SODIUM 139.2 mmol/L (137-145); TOTAL PROTEIN 8.6 g/dL (6.3-8.2)
[2017-04-07 23:30] LABS: APPEARANCE,URINE SLIGHTLY-CLOUDY; BILIRUBIN,URINE NEGATIVE (NEGATIVE); GLUCOSE, URINE >=500 mg/dL (NEGATIVE); KETONES,URINE NEGATIVE (NEGATIVE); LEUKOCYTE ESTERASE,URINE NEGATIVE (NEGATIVE); NITRITE,URINE NEGATIVE (NEGATIVE); PROTEIN,URINE NEGATIVE (NEGATIVE); URINE SPECIFIC GRAVITY 1.025; UROBILINOGEN,URINE NEGATIVE mg/dL (<2.0)
[2017-04-07] MEDS ORDERED: MORPHINE SULFATE 10 MG/ML INJ IV ONE (23:39)
[2017-04-07] MEDS ORDERED: NORMAL SALINE 1000 ML 1,000 ML IV ONE (23:39)
[2017-04-07] MEDS ORDERED: ONDANSETRON HCL INJ/PF 4 MG/2 ML SDV IV ONE (23:39)
--- NOTE | 2017-04-07 23:41 | ER Document Report ---
ED GI/ - General Chief Complaint: Abdominal Pain Stated Complaint: ABDOMINAL PAIN Time Seen by Provider: 04/07/17 23:23 Notes: Patient is a 56-year-old female comes emergency department for chief complaint of abdominal pain, she states that she has pain radiating from her mid to lower right abdomen around to her flank, she states she has been nauseated and had difficulty eating today, she states symptoms started last night and has worsened. She does report history of kidney stones, she has had a hysterectomy , she denies any other abdominal surgeries. Past medical history of hypertension, type 2 diabetes, peptic ulcer disease, denies upper abdominal pain. TRAVEL OUTSIDE OF THE [place] IN LAST 30 DAYS: No - Related Data Allergies/Adverse Reactions: levofloxacin [From Levaquin] Adverse Reaction (Intermediate, Verified 04/07/17 22:16) nausea and vomiting simvastatin [From Zocor] Adverse Reaction (Intermediate, Verified 04/07/17 22:16 ) rash Past Medical History - General Information source: Patient - Social History Smoking Status: Never Smoker Drug Abuse: None Lives with: Family Family History: Arthritis, CAD, CVA, DM, Hyperlipidemia, Hypertension, Malignancy Patient has suicidal ideation: No Patient has homicidal ideation: No - Past Medical History Cardiac Medical History: Reports: Hx Hypercholesterolemia, Hx Hypertension, Hx Heart Murmur Denies: Hx Coronary Artery Disease, Hx Heart Attack Pulmonary Medical History: Reports: Hx Asthma, Hx Bronchitis, Hx Pneumonia Denies: Hx COPD Neurological Medical History: Reports: Hx Migraine. Denies: Hx Cerebrovascular Accident, Hx Seizures Endocrine Medical History: Reports: Hx Diabetes Mellitus Type 2 Renal/ Medical History: Reports: Hx Kidney Stones. Denies: Hx Peritoneal Dialysis GI Medical History: Reports: Hx Gastroesophageal Reflux Disease, Hx Ulcer - gastric, Hx Colonoscopy, Hx Endoscopy Musculoskeltal Medical History: Reports Hx Arthritis, Reports Hx Musculoskeletal Trauma Psychiatric Medical History: Reports: Hx Depression Traumatic Medical History: Reports: Hx Fractures - wrist, both ankles Past Surgical History: Reports: Hx Hysterectomy, Hx Orthopedic Surgery - 2 L knee. Denies: Hx Pacemaker - Immunizations Immunizations up to date: Yes Hx Diphtheria, Pertussis, Tetanus Vaccination: Yes - 2012 Hx Pneumococcal Vaccination: 01/30/15 Review of Systems - Review of Systems Constitutional: No symptoms reported EENT: No symptoms reported Cardiovascular: No symptoms reported Respiratory: No symptoms reported Gastrointestinal: See HPI Genitourinary: No symptoms reported Female Genitourinary: No symptoms reported Musculoskeletal: No symptoms reported Skin: No symptoms reported Hematologic/Lymphatic: No symptoms reported Neurological/Psychological: No symptoms reported Physical Exam - Vital signs Vitals: Temp Pulse Resp BP Pulse Ox 97.9 F 90 16 125/90 H 96 04/07/17 22:20 04/07/17 22:20 04/07/17 22:20 04/07/17 22:20 04/07/17 22:20 Interpretation: Normal - General General appearance: Appears well, Alert - HEENT Head: Normocephalic, Atraumatic Eyes: Normal Pupils: PERRL - Respiratory Respiratory status: No respiratory distress Chest status: Nontender Breath sounds: Normal Chest palpation: Normal - Cardiovascular Rhythm: Regular Heart sounds: Normal auscultation Murmur: No - Abdominal Inspection: Morbidly Obese Distension: No distension Bowel sounds: Normal Tenderness: Tender - Tender in the right abdomen generally including the upper, mid, and lower without specific guarding. No rebound tenderness or rigidity Organomegaly: No organomegaly - Back Back: Normal, Nontender. No: Tender, CVA tenderness - Extremities General upper extremity: Normal inspection, Nontender, Normal color, Normal ROM , Normal temperature General lower extremity: Normal inspection, Nontender, Normal color, Normal ROM , Normal temperature, Normal weight bearing. No: Shasta's sign - Neurological Neuro grossly intact: Yes Cognition: Normal Orientation: AAOx4 Samreen Coma Scale Eye Opening: Spontaneous Nazlini Coma Scale Verbal: Oriented Samreen Coma Scale Motor: Obeys Commands Nazlini Coma Scale Total: 15 Speech: Normal Motor strength normal: LUE, RUE, LLE, RLE Sensory: Normal - Psychological Associated symptoms: Normal affect, Normal mood - Skin Skin Temperature: Warm Skin Moisture: Dry Skin Color: Normal Course - Re-evaluation Re-evalutation: Patient has general right sided abdominal tenderness in the mid, lower, and upper quadrant. Somewhat nonspecific. No overt CVA tenderness. Patient does appear uncomfortable on initial evaluation. CBC unremarkable, chemistry shows hyperglycemia, bicarbonate slightly elevated, anion gap is normal. No ketones in the urine. Lipase in the 400s, no epigastric tenderness on exam. On reexamination abdomen is nontender. CT was performed to rule out obstructive stone or any other acute intra- abdominal pathology. No stones noted, no hydronephrosis, appendix visualized as normal, gallbladder normal, bowels appear normal as well. Patient reevaluated, continues to be well-appearing, bowel is unremarkable on reexaminations. I have very low suspicion of acute abdomen, patient has been rehydrated, she is tolerating p.o. meds and fluids. Patient will be discharged home with recommendation of follow-up with her sister superior and primary care provider within the next 1-2 days, given Bentyl and Phenergan, discussed return precautions. Patient and state understanding and agreement. - Vital Signs Vital signs: Temp Pulse Resp BP Pulse Ox 97.9 F 78 20 128/89 H 98 04/07/17 22:20 04/08/17 02:12 04/08/17 02:12 04/08/17 02:12 04/08/17 02:12 - Laboratory Result Diagrams: 04/07/17 22:59 04/07/17 22:59 Laboratory results interpreted by me: 04/07/17 04/07/17 22:59 22:59 Chloride 95 L Carbon Dioxide 31 H Glucose 296 H Calcium 10.3 H Direct Bilirubin 0.5 H AST 38 H ALT 57 H Total Protein 8.6 H Lipase 453.4 H Urine Glucose (UA) >=500 H Urine Blood SMALL H Discharge - Discharge Clinical Impression: Flank pain, Nausea Abdominal pain Qualifiers: Abdominal location: generalized Qualified Code(s): R10.84 - Generalized abdominal pain Condition: Stable Disposition: HOME, SELF-CARE Additional Instructions: Your examination and workup does not show any acute findings (no stones, infections, or other abnormalities are seen). Take bentyl for pain, phenergan if needed for nausea. Follow up with primary care and gastroenterology for additional evaluation and treatment. Return to the ED for any concerning or worsening symptoms -fever, vomiting, severe abdominal pain, black or bloody stools, or any other concerning symptoms. Prescriptions: Dicyclomine HCl [Bentyl 20 mg Tablet] 20 mg PO QID #20 tablet Promethazine HCl [Phenergan 25 mg Tablet] 1 - 2 tab PO Q6H PRN #15 tablet PRN Reason:
--- NOTE | 2017-04-08 01:20 | RADIOLOGY REPORT (SQ) ---
EXAM DESCRIPTION: CT LTD RENAL STONE PROTOCOL ON CLINICAL HISTORY: 56 years Female, right flank and abd pain, nausea, hx stones COMPARISON: 10/25/2016. TECHNIQUE: No contrast, coronal and sagittal reformat. This exam was performed according to our departmental dose-optimization program which includes use of Automated Exposure Control, adjustment of the mA and/or kV according to patient size and/or use of iterative reconstruction technique. FINDINGS: No acute findings. Unenhanced renal system appears normal. Normal CT appearance of the appendix and gallbladder. No free fluid. No obstruction. No free air. Uterus surgically removed. Moderate hepatic steatosis. Moderate fat-replaced pancreas. Unenhanced inferior chest, ayrly-[id number]-[id number] structures, moderate spondylosis between the L4 and S1 levels, small disc bulges between the L3 and S1 levels, 0.3 cm degenerative L4 anterolisthesis, and bony structures appear otherwise unremarkable. IMPRESSION: No acute findings.
[2017-04-08] MEDS ORDERED: DICYCLOMINE HCL 20 MG TABLET PO ONE (01:41)
[2017-04-08] MEDS ORDERED: PROMETHAZINE HCL 25 MG TABLET PO ONE (01:41)
[2017-04-08 02:13] VITALS: BP 128/89
--- NOTE | 2017-04-08 04:45 | EKG REPORT ---
SEVERITY:- NORMAL ECG - SINUS RHYTHM : Confirmed by: Sloane Ramos 08-Apr-2017 04:15:51
== END 2017-04-08 02:10 | disposition home or self-care (01) ==
LOC: ER 22:15
DX: R10.84 Generalized abdominal pain (principal); R10.30 Lower abdominal pain, unspecified; R11.0 Nausea
CPT/HCPCS: 93005; 99284; 96361; 96374; 96375; 36415; 83690; 85025; 80053; 81001; 76380; 93010; J3490; J2270; J2405; J7030

== ENCOUNTER 2017-05-26 04:53 | Emergency (ER) | payer OTHER, MEDICAID ==
[2017-05-26] MEDS ORDERED: ONDANSETRON HCL INJ/PF 4 MG/2 ML SDV IV ONE (06:09)
[2017-05-26] MEDS ORDERED: DICYCLOMINE HCL INJ 20 MG/2 ML AMPULE IM ONE (06:35)
--- NOTE | 2017-05-26 06:35 | ER Document Report ---
ED General - General Chief Complaint: Abdominal Pain Stated Complaint: ABDOMINAL PAIN Time Seen by Provider: 05/26/17 06:09 Mode of Arrival: Ambulatory Information source: Patient Notes: 56-year-old female history chronic abdominal pain with recent colonoscopy diagnosis of diverticulosis presents with complaints of abdominal pain. Patient denies any fevers or chills denies any vomiting of blood. Patient admits to cramping and diarrhea worst in the suprapubic and left lower quadrant TRAVEL OUTSIDE OF THE [place] IN LAST 30 DAYS: No - HPI Onset: Other - 4 day duration Onset/Duration: Waxing and waning Quality of pain: Cramping Severity: Mild Pain Level: 1 Associated symptoms: Diarrhea, Nausea, Vomiting Exacerbated by: Denies Relieved by: Denies Similar symptoms previously: Yes Recently seen / treated by doctor: Yes - Related Data Allergies/Adverse Reactions: levofloxacin [From Levaquin] Adverse Reaction (Intermediate, Verified 04/07/17 22:16) nausea and vomiting simvastatin [From Zocor] Adverse Reaction (Intermediate, Verified 04/07/17 22:16 ) rash Past Medical History - Social History Smoking Status: Never Smoker Cigarette use (# per day): No Chew tobacco use (# tins/day): No Smoking Education Provided: No Family History: Arthritis, CAD, CVA, DM, Hyperlipidemia, Hypertension, Malignancy - Past Medical History Cardiac Medical History: Reports: Hx Hypercholesterolemia, Hx Hypertension, Hx Heart Murmur Denies: Hx Coronary Artery Disease, Hx Heart Attack Pulmonary Medical History: Reports: Hx Asthma, Hx Bronchitis, Hx Pneumonia Denies: Hx COPD Neurological Medical History: Reports: Hx Migraine. Denies: Hx Cerebrovascular Accident, Hx Seizures Endocrine Medical History: Reports: Hx Diabetes Mellitus Type 2 Renal/ Medical History: Reports: Hx Kidney Stones. Denies: Hx Peritoneal Dialysis GI Medical History: Reports: Hx Gastroesophageal Reflux Disease, Hx Ulcer - gastric, Hx Colonoscopy, Hx Endoscopy Musculoskeltal Medical History: Reports Hx Arthritis, Reports Hx Musculoskeletal Trauma Psychiatric Medical History: Reports: Hx Depression Traumatic Medical History: Reports: Hx Fractures - wrist, both ankles Past Surgical History: Reports: Hx Hysterectomy, Hx Orthopedic Surgery - 2 L knee. Denies: Hx Pacemaker - Immunizations Immunizations up to date: Yes Hx Diphtheria, Pertussis, Tetanus Vaccination: Yes - 2012 Hx Pneumococcal Vaccination: 01/30/15 Review of Systems - Review of Systems Notes: REVIEW OF SYSTEMS: CONSTITUTIONAL : Denies fever, chills, or sweats. Denies recent illness. EENT: Denies eye, ear, throat, or mouth pain or symptoms. Denies nasal or sinus congestion or discharge. Denies throat, tongue, or mouth swelling or difficulty swallowing. CARDIOVASCULAR: Denies chest pain. Denies palpitations or racing or irregular heart beat. Denies ankle edema. RESPIRATORY: Denies cough, cold, or chest congestion. Denies shortness of breath, difficulty breathing, or wheezing. GASTROINTESTINAL: Admits to abdominal pain GENITOURINARY: Denies difficulty urinating, painful urination, burning, frequency, blood in urine, or discharge. FEMALE GENITOURINARY: Denies vaginal bleeding, heavy or abnormal periods, irregular periods. Denies vaginal discharge or odor. MUSCULOSKELETAL: Denies back or neck pain or stiffness. Denies joint pain or swelling. SKIN: Denies rash, lesions or sores. HEMATOLOGIC : Denies easy bruising or bleeding. LYMPHATIC: Denies swollen, enlarged glands. NEUROLOGICAL: Denies confusion or altered mental status. Denies passing out or loss of consciousness. Denies dizziness or lightheadedness. Denies headache. Denies weakness or paralysis or loss of use of either side. Denies problems with gait or speech. Denies sensory loss, numbness, or tingling. Denies seizures. PSYCHIATRIC: Denies anxiety or stress. Denies depression, suicidal ideation, or homicidal ideation. ALL OTHER SYSTEMS REVIEWED AND NEGATIVE. PHYSICAL EXAMINATION: GENERAL: Well-appearing, well-nourished and in no acute distress. HEAD: Atraumatic, normocephalic. EYES: Pupils equal round and reactive to light, extraocular movements intact, conjunctiva are normal. ENT: Nares patent, oropharynx clear without exudates. Moist mucous membranes. NECK: Normal range of motion, supple without lymphadenopathy LUNGS: Breath sounds clear to auscultation bilaterally and equal. No wheezes rales or rhonchi. HEART: Regular rate and rhythm without murmurs ABDOMEN: Soft, minimally tender in the suprapubic left lower quadrant no rebound no guarding no peritoneal sign Female : deferred Musculoskeletal: Normal range of motion, no pitting or edema. No cyanosis. NEUROLOGICAL: Cranial nerves grossly intact. Normal speech, normal gait. Normal sensory, motor exams PSYCH: Normal mood, normal affect. SKIN: Scabs noted on body Dictation was performed using [employer] voice recognition software Physical Exam - Vital signs Vitals: Temp Pulse Resp BP Pulse Ox 98.0 F 89 17 148/85 H 97 05/26/17 05:00 05/26/17 05:00 05/26/17 05:00 05/26/17 05:00 05/26/17 05:00 Course - Re-evaluation Re-evalutation: 05/26/17 08:47 Patient also notes that she is a diabetic and her blood sugar has been out of control, her lab work otherwise looks well but she does in fact have hypoglycemia, insulin through the IV and IV fluids have been ordered. Patient will be treated symptomatically has probable diverticulitis 05/26/17 10:13 Patient's blood sugar has improved significantly with insulin IV fluids lab work otherwise benign she will be discharged home with close follow-up After performing a Medical Screening Examination, I estimate there is LOW risk for ACUTE APPENDICITIS, BOWEL OBSTRUCTION, ACUTE CHOLECYSTITIS, PERFORATED DIVERTICULITIS, INCARCERATED HERNIA, PANCREATITIS, PELVIC INFLAMMATORY DISEASE, PERFORATED ULCER, ECTOPIC , or TUBO-OVARIAN ABSCESS, thus I consider the discharge disposition reasonable. Also, there is no evidence or peritonitis , sepsis, or toxicity. I have reevaluated this patient multiple times and no significant life threatening changes are noted. The patient and I have discussed the diagnosis and risks, and we agree with discharging home with close follow-up with the understanding that symptoms and presentations can change. We also discussed returning to the Emergency Department immediately if new or worsening symptoms occur. We have discussed the symptoms which are most concerning (e.g., bloody stool, fever, changing or worsening pain, vomiting) that necessitate immediate return. - Vital Signs Vital signs: Temp Pulse Resp BP Pulse Ox 98.0 F 89 17 148/85 H 97 05/26/17 05:00 05/26/17 05:00 05/26/17 05:00 05/26/17 05:00 05/26/17 05:00 - Laboratory Result Diagrams: 05/26/17 07:30 05/26/17 07:30 Laboratory results interpreted by me: 05/26/17 05/26/17 05/26/17 05:06 07:30 07:30 Sodium 135.1 L Chloride 95 L Glucose 415 H* POC Glucose 396 H ALT 54 H Urine Glucose (UA) >=500 H Urine Blood SMALL H Discharge - Discharge Clinical Impression: Diabetes mellitus type 2 in obese Diverticulosis Qualifiers: Diverticulosis site: diverticulosis of large intestine Diverticulosis bleeding : diverticulosis without bleeding Qualified Code(s): K57.30 - Diverticulosis of large intestine without perforation or abscess without bleeding Condition: Stable Disposition: HOME, SELF-CARE Instructions: Abdominal Pain ([facility]), Antispasmodics ([facility]) Prescriptions: Ciprofloxacin HCl [Cipro 500 mg Tablet] 500 mg PO BID #20 tablet Dicyclomine HCl [Bentyl 20 mg Tablet] 20 mg PO QID #40 tablet Metronidazole [Flagyl 500 mg Tablet] 500 mg PO TID #21 tablet Referrals: ILIANA LOWRY MD [Primary Care Provider] - Follow up as needed
[2017-05-26 07:58] LABS: ABSOLUTE BASOPHILS # (AUTO) 0.1 10^3/uL (0.0-0.2); ABSOLUTE EOSINOPHILS # (AUTO) 0.2 10^3/uL (0.0-0.6); ABSOLUTE LYMPHOCYTES (AUTO) 3.2 10^3/uL (0.5-4.7); ABSOLUTE MONOCYTES (AUTO) 0.4 10^3/uL (0.1-1.4); BASOPHILS % (AUTO) 0.8 % (0-2); EOSINOPHILS % (AUTO) 2.5 % (0-6); HEMATOCRIT 43.1 % (36.0-47.0); HEMOGLOBIN 14.5 g/dL (12.0-15.5); LYMPHOCYTES % (AUTO) 40.9 % (13-45); MEAN CORPUSCULAR HEMOGLOBIN 28.2 pg (27.0-33.4); MEAN CORPUSCULAR HGB CONC 33.6 g/dL (32.0-36.0); MEAN CORPUSCULAR VOLUME 84 fl (80-97); MONOCYTES % (AUTO) 4.8 % (3-13); PLATELET COUNT 156 10^3/uL (150-450); RED BLOOD COUNT 5.14 10^6/uL (3.72-5.28); RED CELL DISTRIBUTION WIDTH 13.7 % (11.5-14.0); TOTAL CELLS COUNTED % (AUTO) 100 %; WHITE BLOOD COUNT 7.8 10^3/uL (4.0-10.5)
[2017-05-26 08:02] LABS: ALANINE AMINOTRANSFERASE 54 U/L (9-52); ALBUMIN 4.8 g/dL (3.5-5.0); ALKALINE PHOSPHATASE 108 U/L (38-126); ANION GAP 12 (5-19); ASPARTATE AMINO TRANSFERASE 34 U/L (14-36); BILIRUBIN,DIRECT 0.4 mg/dL (0.0-0.4); BILIRUBIN,TOTAL 0.7 mg/dL (0.2-1.3); BLOOD UREA NITROGEN 17 mg/dL (7-20); CALCIUM 10.1 mg/dL (8.4-10.2); CARBON DIOXIDE 28 mmol/L (22-30); CHLORIDE 95 mmol/L (98-107); LIPASE 56.7 U/L (23-300); POTASSIUM 4.3 mmol/L (3.6-5.0); SODIUM 135.1 mmol/L (137-145); TOTAL PROTEIN 8.2 g/dL (6.3-8.2)
[2017-05-26 08:09] LABS: GLUCOSE 415 mg/dL (75-110)
[2017-05-26] MEDS ORDERED: NORMAL SALINE 1000 ML 1,000 ML IV ONE (08:10)
[2017-05-26] MEDS ORDERED: INSULIN REG, HUMAN 100 UNIT/ML 3 ML VIAL (PYX) IV ONE (08:10)
[2017-05-26 08:13] LABS: APPEARANCE,URINE CLEAR; BILIRUBIN,URINE NEGATIVE (NEGATIVE); COLOR,URINE YELLOW; GLUCOSE, URINE >=500 mg/dL (NEGATIVE); KETONES,URINE NEGATIVE (NEGATIVE); LEUKOCYTE ESTERASE,URINE NEGATIVE (NEGATIVE); NITRITE,URINE NEGATIVE (NEGATIVE); PROTEIN,URINE NEGATIVE (NEGATIVE); URINE SPECIFIC GRAVITY 1.033; UROBILINOGEN,URINE NEGATIVE mg/dL (<2.0)
[2017-05-26 10:28] VITALS: BP 146/98
== END 2017-05-26 10:28 | disposition home or self-care (01) ==
LOC: ER 04:53
DX: K57.30 Diverticulosis of large intestine without perforation or abscess without bleeding (principal); E11.9 Type 2 diabetes mellitus without complications; E66.9 Obesity, unspecified; G89.29 Other chronic pain; R10.9 Unspecified abdominal pain; R11.2 Nausea with vomiting, unspecified; E78.00 Pure hypercholesterolemia, unspecified; R19.7 Diarrhea, unspecified; I10 Essential (primary) hypertension; Z87.442 Personal history of urinary calculi; Z90.710 Acquired absence of both cervix and uterus
CPT/HCPCS: 99284; 96372; 96361; 96374; 36415; 82962; 83690; 85025; 80053; 81001; J0500; J1815; J2405; J7030

== ENCOUNTER 2017-06-01 23:05 | Emergency (ER) | payer MEDICAID ==
[2017-06-01] MEDS ORDERED: NORMAL SALINE 1000 ML 1,000 ML IV ONE (23:27)
[2017-06-02] MEDS ORDERED: KETOROLAC TROMETHAMINE INJ/PF 30 MG/1 ML SDV IV ONE (00:21)
[2017-06-02] MEDS ORDERED: PROCHLORPERAZINE EDISYLATE INJ 10 MG/2 ML VIAL IV ONE (00:21)
[2017-06-02] MEDS ORDERED: INSULIN REG, HUMAN 100 UNIT/ML 3 ML VIAL (PYX) SUBCUT ONE ×2 (00:21→03:07)
[2017-06-02 00:26] LABS: ABSOLUTE EOSINOPHILS # (AUTO) 0.1 10^3/uL (0.0-0.6); ABSOLUTE LYMPHOCYTES (AUTO) 1.8 10^3/uL (0.5-4.7); ABSOLUTE MONOCYTES (AUTO) 0.2 10^3/uL (0.1-1.4); ABSOLUTE NEUT (AUTO) 2.7 10^3/uL (1.7-8.2); BASOPHILS % (AUTO) 0.8 % (0-2); EOSINOPHILS % (AUTO) 3.1 % (0-6); HEMATOCRIT 45.5 % (36.0-47.0); HEMOGLOBIN 14.7 g/dL (12.0-15.5); MEAN CORPUSCULAR HGB CONC 32.4 g/dL (32.0-36.0); MEAN CORPUSCULAR VOLUME 86 fl (80-97); MONOCYTES % (AUTO) 4.8 % (3-13); PLATELET COUNT 126 10^3/uL (150-450); RED BLOOD COUNT 5.26 10^6/uL (3.72-5.28); RED CELL DISTRIBUTION WIDTH 14.2 % (11.5-14.0); SEGMENTED NEUTROPHILS % (AUTO) 55.3 % (42-78); TOTAL CELLS COUNTED % (AUTO) 100 %; WHITE BLOOD COUNT 4.9 10^3/uL (4.0-10.5)
[2017-06-02 00:37] LABS: ALANINE AMINOTRANSFERASE 61 U/L (9-52); ALBUMIN 4.9 g/dL (3.5-5.0); ALKALINE PHOSPHATASE 85 U/L (38-126); ANION GAP 10 (5-19); ASPARTATE AMINO TRANSFERASE 33 U/L (14-36); BILIRUBIN,DIRECT 0.2 mg/dL (0.0-0.4); BILIRUBIN,TOTAL 0.6 mg/dL (0.2-1.3); BLOOD UREA NITROGEN 14 mg/dL (7-20); CARBON DIOXIDE 30 mmol/L (22-30); CHLORIDE 98 mmol/L (98-107); SODIUM 138.2 mmol/L (137-145); TOTAL PROTEIN 8.2 g/dL (6.3-8.2)
[2017-06-02 00:48] LABS: GLUCOSE 409 mg/dL (75-110)
--- NOTE | 2017-06-02 00:58 | ER Document Report ---
ED Blood Sugar Problem - General Chief Complaint: High Blood Sugar Stated Complaint: HEADACHE/NAUSEA/DIARRHEA Time Seen by Provider: 06/02/17 00:14 Mode of Arrival: Ambulatory Information source: Patient Notes: Patient is a 56-year-old female with type 2 diabetes on Lantus 50 units at night and Januvia who presents to the ER today for elevated blood sugar readings for approximately 2 weeks. Patient states that tonight they were in the 300s at home so she came here. She admits to dizziness and some blurred vision, nausea but no vomiting. Patient has an appointment with her primary care provider tomorrow. Patient states she has not had her Lantus tonight. TRAVEL OUTSIDE OF THE [place] IN LAST 30 DAYS: No - Related Data Allergies/Adverse Reactions: levofloxacin [From Levaquin] Adverse Reaction (Intermediate, Verified 06/01/17 23:22) nausea and vomiting simvastatin [From Zocor] Adverse Reaction (Intermediate, Verified 06/01/17 23:22 ) rash Past Medical History - General Information source: Patient - Social History Smoking Status: Former Smoker Frequency of alcohol use: None Drug Abuse: None Family History: Arthritis, CAD, CVA, DM, Hyperlipidemia, Hypertension, Malignancy Patient has suicidal ideation: No Patient has homicidal ideation: No - Past Medical History Cardiac Medical History: Reports: Hx Hypercholesterolemia, Hx Hypertension, Hx Heart Murmur Denies: Hx Coronary Artery Disease, Hx Heart Attack Pulmonary Medical History: Reports: Hx Asthma, Hx Bronchitis, Hx Pneumonia Denies: Hx COPD Neurological Medical History: Reports: Hx Migraine. Denies: Hx Cerebrovascular Accident, Hx Seizures Endocrine Medical History: Reports: Hx Diabetes Mellitus Type 2 Renal/ Medical History: Reports: Hx Kidney Stones. Denies: Hx Peritoneal Dialysis GI Medical History: Reports: Hx Gastroesophageal Reflux Disease, Hx Ulcer - gastric, Hx Colonoscopy, Hx Endoscopy Musculoskeltal Medical History: Reports Hx Arthritis, Reports Hx Musculoskeletal Trauma Psychiatric Medical History: Reports: Hx Depression Traumatic Medical History: Reports: Hx Fractures - wrist, both ankles Past Surgical History: Reports: Hx Hysterectomy, Hx Orthopedic Surgery - 2 L knee. Denies: Hx Pacemaker - Immunizations Immunizations up to date: Yes Hx Diphtheria, Pertussis, Tetanus Vaccination: Yes - 2012 Hx Pneumococcal Vaccination: 01/30/15 Review of Systems - Review of Systems Constitutional: No symptoms reported EENT: No symptoms reported Cardiovascular: No symptoms reported Respiratory: No symptoms reported Gastrointestinal: See HPI Genitourinary: No symptoms reported Female Genitourinary: No symptoms reported Musculoskeletal: No symptoms reported Skin: No symptoms reported Hematologic/Lymphatic: No symptoms reported Neurological/Psychological: See HPI Physical Exam - Vital signs Vitals: Temp Pulse Resp BP Pulse Ox 97.5 F 72 20 147/80 H 98 06/01/17 23:16 06/01/17 23:16 06/01/17 23:16 06/01/17 23:16 06/01/17 23:16 - Notes Notes: PHYSICAL EXAMINATION: GENERAL: Morbidly obese, but in no acute distress. HEAD: Atraumatic, normocephalic. EYES: Pupils equal round and reactive to light, extraocular movements intact, sclera anicteric, conjunctiva are normal. ENT: ear canals without erythema or foreign body, TMs pearly steen with good bony landmarks, nares patent, oropharynx clear without exudates. Moist mucous membranes. NECK: Normal range of motion, supple without lymphadenopathy LUNGS: CTAB and equal. No wheezes rales or rhonchi. HEART: Regular rate and rhythm without murmurs ABDOMEN: Soft, no tenderness. No guarding, no rebound BACK: no vertebral tenderness, normal ROM GI/: no CVA tenderness EXTREMITIES: Normal range of motion, no pitting edema. No cyanosis. NEUROLOGICAL: Cranial nerves grossly intact. Normal sensory/motor exams. PSYCH: Normal mood, normal affect. SKIN: Warm, Dry, normal turgor, no rashes or lesions noted Course - Re-evaluation Re-evalutation: 06/02/17 05:58 Initial glucose here is 409 on patient given 6 units of insulin it did reduce to 341, after 4 more units of insulin did reduce to 268. Patient has an appointment this morning now with her primary care provider. No evidence of DKA today. - Vital Signs Vital signs: Temp Pulse Resp BP Pulse Ox 97.9 F 80 19 120/68 96 06/02/17 05:41 06/02/17 05:41 06/02/17 05:41 06/02/17 05:41 06/02/17 05:41 - Laboratory Result Diagrams: 06/02/17 00:17 06/02/17 00:17 Laboratory results interpreted by me: 06/02/17 06/02/17 06/02/17 00:17 00:17 00:30 RDW 14.2 H Plt Count 126 L Glucose 409 H* POC Glucose ALT 61 H Urine Glucose (UA) >=500 H 06/02/17 06/02/17 02:45 05:29 RDW Plt Count Glucose POC Glucose 341 H 287 H ALT Urine Glucose (UA) Discharge - Discharge Clinical Impression: Diabetes type 2, uncontrolled Qualifiers: Diabetes mellitus complication status: with unspecified complications Diabetes mellitus exterminator termite insulin use: with exterminator termite use Qualified Code(s): E11.8 - Type 2 diabetes mellitus with unspecified complications Condition: Stable Disposition: HOME, SELF-CARE Additional Instructions: Please discuss with your primary care provider at your appointment today possibly increasing your Lantus or switching to a different insulin. Return immediately for any new or worsening symptoms. Referrals: ILIANA LOWRY MD [Primary Care Provider] - Follow up as needed
[2017-06-02 01:11] LABS: APPEARANCE,URINE CLEAR; BILIRUBIN,URINE NEGATIVE (NEGATIVE); COLOR,URINE STRAW; GLUCOSE, URINE >=500 mg/dL (NEGATIVE); KETONES,URINE NEGATIVE (NEGATIVE); LEUKOCYTE ESTERASE,URINE NEGATIVE (NEGATIVE); NITRITE,URINE NEGATIVE (NEGATIVE); PROTEIN,URINE NEGATIVE (NEGATIVE); URINE SPECIFIC GRAVITY 1.027; UROBILINOGEN,URINE NEGATIVE mg/dL (<2.0)
[2017-06-02 05:48] VITALS: BP 120/68
== END 2017-06-02 05:48 | disposition home or self-care (01) ==
LOC: ER 23:05
DX: E11.65 Type 2 diabetes mellitus with hyperglycemia (principal); R51 Headache; R11.0 Nausea; R19.7 Diarrhea, unspecified; Z79.4 Long term (current) use of insulin; R42 Dizziness and giddiness; H53.8 Other visual disturbances; Z87.891 Personal history of nicotine dependence
CPT/HCPCS: 99284; 96361; 96374; 96375; 36415; 82962; 85025; 80053; 81001; J1885; J1815; J0780; J7030

== ENCOUNTER 2017-08-02 16:13 | Inpatient (IN) | payer OTHER, MEDICAID ==
--- NOTE | 2017-08-02 17:12 | ER Document Report ---
ED Medical Screen (RME) - General Chief Complaint: Abdominal Pain Stated Complaint: STOMACH PAIN Time Seen by Provider: 08/02/17 17:06 Notes: 56-year-old female patient reports a three-week history of off and on nausea vomiting diarrhea, and fairly constant right upper quadrant abdominal pain. She is insulin-dependent diabetic states her sugars have been in the high 200s. She is obese. She states she has been told she had sludge in her gallbladder in the past. I have greeted and performed a rapid initial assessment of this patient. A comprehensive ED assessment and evaluation of the patient, analysis of test results and completion of the medical decision making process will be conducted by additional ED providers. TRAVEL OUTSIDE OF THE [place] IN LAST 30 DAYS: No - Related Data Allergies/Adverse Reactions: levofloxacin [From Levaquin] Adverse Reaction (Intermediate, Verified 08/02/17 16:14) nausea and vomiting simvastatin [From Zocor] Adverse Reaction (Intermediate, Verified 08/02/17 16:14 ) rash Past Medical History - Social History Frequency of alcohol use: None Drug Abuse: None - Past Medical History Cardiac Medical History: Reports: Hx Hypercholesterolemia, Hx Hypertension, Hx Heart Murmur Denies: Hx Coronary Artery Disease, Hx Heart Attack Pulmonary Medical History: Reports: Hx Asthma, Hx Bronchitis, Hx Pneumonia Denies: Hx COPD Neurological Medical History: Reports: Hx Migraine. Denies: Hx Cerebrovascular Accident, Hx Seizures Endocrine Medical History: Reports: Hx Diabetes Mellitus Type 2 Renal/ Medical History: Reports: Hx Kidney Stones. Denies: Hx Peritoneal Dialysis GI Medical History: Reports: Hx Gastroesophageal Reflux Disease, Hx Ulcer - gastric, Hx Colonoscopy, Hx Endoscopy Musculoskeltal Medical History: Reports Hx Arthritis, Reports Hx Musculoskeletal Trauma Psychiatric Medical History: Reports: Hx Depression Traumatic Medical History: Reports: Hx Fractures - wrist, both ankles Past Surgical History: Reports: Hx Hysterectomy, Hx Orthopedic Surgery - 2 L knee. Denies: Hx Pacemaker - Immunizations Immunizations up to date: Yes Hx Diphtheria, Pertussis, Tetanus Vaccination: Yes - 2012 Physical Exam - Vital signs Vitals: Temp Pulse Resp BP Pulse Ox 98.5 F 79 18 147/92 H 97 08/02/17 16:17 08/02/17 16:17 08/02/17 16:17 08/02/17 16:17 08/02/17 16:17 Course - Vital Signs Vital signs: Temp Pulse Resp BP Pulse Ox 98.5 F 79 18 147/92 H 97 08/02/17 16:17 08/02/17 16:17 08/02/17 16:17 08/02/17 16:17 08/02/17 16:17
[2017-08-02 17:40] LABS: ABSOLUTE BASOPHILS # (AUTO) 0.1 10^3/uL (0.0-0.2); ABSOLUTE EOSINOPHILS # (AUTO) 0.2 10^3/uL (0.0-0.6); ABSOLUTE LYMPHOCYTES (AUTO) 2.4 10^3/uL (0.5-4.7); ABSOLUTE MONOCYTES (AUTO) 0.3 10^3/uL (0.1-1.4); ABSOLUTE NEUT (AUTO) 3.5 10^3/uL (1.7-8.2); BASOPHILS % (AUTO) 0.9 % (0-2); EOSINOPHILS % (AUTO) 2.9 % (0-6); HEMATOCRIT 39.1 % (36.0-47.0); MEAN CORPUSCULAR HEMOGLOBIN 28.1 pg (27.0-33.4); MEAN CORPUSCULAR HGB CONC 33.3 g/dL (32.0-36.0); MEAN CORPUSCULAR VOLUME 84 fl (80-97); MONOCYTES % (AUTO) 4.8 % (3-13); PLATELET COUNT 139 10^3/uL (150-450); RED BLOOD COUNT 4.63 10^6/uL (3.72-5.28); RED CELL DISTRIBUTION WIDTH 14.6 % (11.5-14.0); SEGMENTED NEUTROPHILS % (AUTO) 54.4 % (42-78); TOTAL CELLS COUNTED % (AUTO) 100 %; WHITE BLOOD COUNT 6.4 10^3/uL (4.0-10.5)
[2017-08-02 17:55] LABS: ALANINE AMINOTRANSFERASE 55 U/L (9-52); ALBUMIN 4.2 g/dL (3.5-5.0); ALKALINE PHOSPHATASE 74 U/L (38-126); ANION GAP 6 (5-19); ASPARTATE AMINO TRANSFERASE 40 U/L (14-36); BILIRUBIN,DIRECT 0.3 mg/dL (0.0-0.4); BILIRUBIN,TOTAL 0.5 mg/dL (0.2-1.3); BLOOD UREA NITROGEN 17 mg/dL (7-20); CALCIUM 9.5 mg/dL (8.4-10.2); CARBON DIOXIDE 31 mmol/L (22-30); CHLORIDE 103 mmol/L (98-107); GLUCOSE 161 mg/dL (75-110); POTASSIUM 4.1 mmol/L (3.6-5.0); SODIUM 140.4 mmol/L (137-145); TOTAL PROTEIN 7.7 g/dL (6.3-8.2)
[2017-08-02 18:01] LABS: APPEARANCE,URINE SLIGHTLY-CLOUDY; BILIRUBIN,URINE NEGATIVE (NEGATIVE); COLOR,URINE YELLOW; GLUCOSE, URINE NEGATIVE (NEGATIVE); KETONES,URINE NEGATIVE (NEGATIVE); LEUKOCYTE ESTERASE,URINE NEGATIVE (NEGATIVE); NITRITE,URINE NEGATIVE (NEGATIVE); PROTEIN,URINE NEGATIVE (NEGATIVE); URINE SPECIFIC GRAVITY 1.027
--- NOTE | 2017-08-02 18:57 | RADIOLOGY REPORT (SQ) ---
EXAM DESCRIPTION: U/S ABDOMEN LIMITED W/O DOP COMPLETED DATE/TIME: 08/02/2017 6:41 pm REASON FOR STUDY: RUQ abd pain COMPARISON: 01/09/2017 TECHNIQUE: Dynamic and static grayscale images acquired of the abdomen and recorded on PACS. Additio nal selected color Doppler and spectral images recorded. LIMITATIONS: Body habitus. Bowel gas. FINDINGS: PANCREAS: Not well seen. LIVER: 17 cm. No obvious masses. LIVER VASCULATURE: Not seen. GALLBLADDER: No stones are seen. There may be a small amount of sludge. Questionable thickening of the gallbladder wall. ULTRASOUND-DETECTED WARREN'S SIGN: Positive. INTRAHEPATIC DUCTS AND COMMON DUCT: Ducts not seen. INFERIOR VENA CAVA: Not seen. AORTA: No aneurysm. RIGHT KIDNEY: Normal size, 10.2 cm. Not well seen. PERITONEAL AND RIGHT PLEURAL SPACE: No ascites or effusions. OTHER: No other significant findings. IMPRESSION: No gallstones are seen. There was a positive sonographic Warren sign and questionable t hickening of the gallbladder wall. TECHNICAL DOCUMENTATION: JOB ID: [id number]- All Rights Reserved Reading location - IP/workstation name: [email or web address]
--- NOTE | 2017-08-02 19:49 | ER Document Report ---
ED General - General Chief Complaint: Abdominal Pain Stated Complaint: STOMACH PAIN Time Seen by Provider: 08/02/17 17:06 Notes: Patient is a 56-year-old female with a past medical history of morbid obesity, hypertension, hyperlipidemia, diabetes, who presents with approximately 1 year of right upper quadrant abdominal pain worsened by eating that he acutely much worse in the last 2 days. Patient describes it as a severe, constant, stabbing pain to the right upper quadrant and epigastrium worsened by any attempted bleeding. Associated nausea, vomiting and diarrhea. No fever. She has not seen her primary doctor regarding today's concerns. She reports that she had an ultrasound in the past that showed sludge but she has never been informed that she has gallstones in the past. She denies any chest pain or shortness of breath. TRAVEL OUTSIDE OF THE [place] IN LAST 30 DAYS: No - Related Data Allergies/Adverse Reactions: levofloxacin [From Levaquin] Adverse Reaction (Intermediate, Verified 08/02/17 16:14) nausea and vomiting simvastatin [From Zocor] Adverse Reaction (Intermediate, Verified 08/02/17 16:14 ) rash Past Medical History - General Information source: Patient - Social History Smoking Status: Former Smoker Frequency of alcohol use: None Drug Abuse: None Lives with: Spouse/Significant other Family History: Arthritis, CAD, CVA, DM, Hyperlipidemia, Hypertension, Malignancy Patient has suicidal ideation: No Patient has homicidal ideation: No - Past Medical History Cardiac Medical History: Reports: Hx Hypercholesterolemia, Hx Hypertension, Hx Heart Murmur Denies: Hx Coronary Artery Disease, Hx Heart Attack Pulmonary Medical History: Reports: Hx Asthma, Hx Bronchitis, Hx Pneumonia Denies: Hx COPD Neurological Medical History: Reports: Hx Migraine. Denies: Hx Cerebrovascular Accident, Hx Seizures Endocrine Medical History: Reports: Hx Diabetes Mellitus Type 2 Renal/ Medical History: Reports: Hx Kidney Stones. Denies: Hx Peritoneal Dialysis GI Medical History: Reports: Hx Gastroesophageal Reflux Disease, Hx Ulcer - gastric, Hx Colonoscopy, Hx Endoscopy Musculoskeltal Medical History: Reports Hx Arthritis, Reports Hx Musculoskeletal Trauma Psychiatric Medical History: Reports: Hx Depression Traumatic Medical History: Reports: Hx Fractures - wrist, both ankles Past Surgical History: Reports: Hx Hysterectomy, Hx Orthopedic Surgery - 2 L knee. Denies: Hx Pacemaker - Immunizations Immunizations up to date: Yes Hx Diphtheria, Pertussis, Tetanus Vaccination: Yes - 2012 Hx Pneumococcal Vaccination: 01/30/15 Review of Systems - Review of Systems Notes: Constitutional: Negative for fever. HENT: Negative for sore throat. Eyes: Negative for visual changes. Cardiovascular: Negative for chest pain. Respiratory: Negative for shortness of breath. Gastrointestinal: Positive for abdominal pain, vomiting and diarrhea Genitourinary: Negative for dysuria. Musculoskeletal: Negative for back pain. Skin: Negative for rash. Neurological: Negative for headaches, weakness or numbness. 10 point ROS negative except as marked above and in HPI. Physical Exam - Vital signs Vitals: Temp Pulse Resp BP Pulse Ox 98.5 F 79 18 147/92 H 97 08/02/17 16:17 08/02/17 16:17 08/02/17 16:17 08/02/17 16:17 08/02/17 16:17 Interpretation: Hypertensive Notes: PHYSICAL EXAMINATION: GENERAL: Appears moderately uncomfortable but in no acute distress HEAD: Atraumatic, normocephalic. EYES: Pupils equal round and reactive to light, extraocular movements intact, sclera anicteric, conjunctiva are normal. ENT: nares patent, oropharynx clear without exudates. Moderately dry mucous membranes. NECK: Normal range of motion, supple without lymphadenopathy LUNGS: Breath sounds clear to auscultation bilaterally and equal. No wheezes rales or rhonchi. HEART: Regular rate and rhythm without murmurs ABDOMEN: Soft, focal right upper quadrant and epigastric abdominal tenderness to palpation with a positive Warren sign no other localized areas of tenderness , normoactive bowel sounds. No guarding, no rebound. No masses appreciated. EXTREMITIES: Normal range of motion, no pitting or edema. No cyanosis. NEUROLOGICAL: No focal neurological deficits. Moves all extremities spontaneously and on command. PSYCH: Normal mood, normal affect. SKIN: Warm, Dry, normal turgor, no rashes or lesions noted. Course - Re-evaluation Re-evalutation: 08/02/17 19:48 Patient presents with 2 days of progressively worsening right upper quadrant abdominal pain worsened with eating. On examination she is exquisitely tender to the right upper quadrant with a positive Warren sign. Remainder of abdominal exam is very benign. Labs do not show any evidence of acute pancreatitis or choledocholithiasis. Right upper quadrant ultrasound does show sludge with a positive sonographic Warren sign as well as gallbladder wall thickening. Given her clinical history I do believe that this is most consistent with acute cholecystitis and have consulted with Dr. Kiran the surgeon operations vice president who is agreed to evaluate the patient for surgical management and admission. - Vital Signs Vital signs: Temp Pulse Resp BP Pulse Ox 98.5 F 79 11 L 137/75 H 95 08/02/17 16:17 08/02/17 16:17 08/03/17 02:01 08/03/17 02:00 08/03/17 02:01 - Laboratory Result Diagrams: 08/02/17 17:25 08/02/17 17:25 Laboratory results interpreted by me: 08/02/17 08/02/17 08/02/17 17:25 17:25 17:25 RDW 14.6 H Plt Count 139 L Carbon Dioxide 31 H Glucose 161 H Hemoglobin A1c % 8.7 H AST 40 H ALT 55 H Urine Urobilinogen 08/02/17 17:42 RDW Plt Count Carbon Dioxide Glucose Hemoglobin A1c % AST ALT Urine Urobilinogen 2.0 H - Diagnostic Test Radiology reviewed: Reports reviewed Discharge - Discharge Clinical Impression: Acute cholecystitis, Morbid obesity with BMI of 60.0-69.9, adult Nausea and vomiting Qualifiers: Vomiting type: unspecified Vomiting Intractability: non-intractable Qualified Code(s): R11.2 - Nausea with vomiting, unspecified Condition: Fair Disposition: ADMITTED INPATIENT Admitting Provider: Azucena Kiran Unit Admitted: Surgical Floor
[2017-08-02] MEDS ORDERED: ONDANSETRON 4 MG TAB.RAPDIS ONE (20:39)
--- NOTE | 2017-08-02 20:46 | PDOC H&P ---
History of Present Illness Admission Date/PCP: 08/02/17 19:57 ILIANA LOWRY MD Patient complains of: RUQ pains with nausea History of Present Illness: BRENDA LANE is a 56 year old female c/o worsening RUQ pains worse when she eats for the past 2 days.US gallbladder showed possible sludge and wall thickening. Past Medical History Cardiac Medical History: Reports: Hyperlipidema, Hypertension, Heart Murmur Denies: Coronary Artery Disease, Myocardial Infarction Pulmonary Medical History: Reports: Asthma, Bronchitis, Pneumonia Denies: Chronic Obstructive Pulmonary Disease (COPD) Neurological Medical History: Reports: Migraine Denies: Seizures Endocrine Medical History: Reports: Diabetes Mellitus Type 2 GI Medical History: Reports: Gastroesophageal Reflux Disease Musculoskeltal Medical History: Reports: Arthritis Psychiatric Medical History: Reports: Depression Hematology: Denies: Anemia Past Surgical History Past Surgical History: Reports: Hysterectomy, Orthopedic Surgery - 2 L knee Denies: Pacemaker Social History Smoking Status: Former Smoker Hx Recreational Drug Use: No Hx Prescription Drug Abuse: No Family History Family History: Arthritis, CAD, CVA, DM, Hyperlipidemia, Hypertension, Malignancy Parental Family History Reviewed: Yes - mother of throat ca and father from emphysema Children Family History Reviewed: No Sibling(s) Family History Reviewed.: No Medication/Allergy Home Medications: Atorvastatin Calcium [Lipitor 40 mg Tablet] 40 mg PO DAILY 08/02/17 Duloxetine HCl [Cymbalta] 60 mg PO DAILY 08/02/17 Insulin Glargine,Hum.rec.anlog [Lantus Insulin 100 Unit/mL] 52 units SQ QPM 07/17 Insulin Glargine,Hum.rec.anlog [Lantus Solostar] 25 units SQ QAM 08/02/17 Lisinopril/Hydrochlorothiazide [Zestoretic 20-25 mg Tablet] 1 tab PO DAILY 08/02 Omeprazole 40 mg PO QAM 08/02/17 Sitagliptin Phos/Metformin HCl [Janumet 50-1,000 mg Tablet] 1 tab PO BID Allergies/Adverse Reactions: levofloxacin [From Levaquin] Adverse Reaction (Intermediate, Verified 08/02/17 16:14) nausea and vomiting simvastatin [From Zocor] Adverse Reaction (Intermediate, Verified 08/02/17 16:14 ) rash Review of Systems Constitutional: PRESENT: other - no chills/fever Eyes: PRESENT: other - no visual hearing changes Respiratory: PRESENT: other - no cough nor chest pains Gastrointestinal: PRESENT: abdominal pain, nausea Genitourinary: PRESENT: other - no dysuria Integumentary: PRESENT: other - no wounds Neurological: PRESENT: other - no seizures Hematologic/Lymphatic: PRESENT: other - no easy bruising Physical Exam Vital Signs: Temp Pulse Resp BP Pulse Ox 98.5 F 79 18 147/92 H 97 08/02/17 16:17 08/02/17 16:17 08/02/17 16:17 08/02/17 16:17 08/02/17 16:17 General appearance: PRESENT: mild distress, morbidly obese Head exam: PRESENT: atraumatic Eye exam: PRESENT: conjunctiva pink Mouth exam: PRESENT: dry mucosa Neck exam: PRESENT: full ROM Respiratory exam: PRESENT: clear to auscultation yamileth Cardiovascular exam: PRESENT: RRR Pulses: PRESENT: normal radial pulses Vascular exam: PRESENT: normal capillary refill GI/Abdominal exam: PRESENT: soft, tenderness - RUQ Rectal exam: PRESENT: deferred Extremities exam: PRESENT: full ROM Musculoskeletal exam: PRESENT: ambulatory Neurological exam: PRESENT: alert, oriented to person, oriented to place, oriented to time, oriented to situation Psychiatric exam: PRESENT: appropriate affect Results Impressions: Abdomen Ultrasound 08/02/17 17:10 IMPRESSION: No gallstones are seen. There was a positive sonographic Warren sign and questionable thickening of the gallbladder wall. Assessment & Plan - Diagnosis (1) Diabetes Is this a current diagnosis for this admission?: Yes (2) Acute cholecystitis Is this a current diagnosis for this admission?: Yes (3) Nausea and vomiting Qualifiers: Vomiting type: unspecified Vomiting Intractability: non-intractable Qualified Code(s): R11.2 - Nausea with vomiting, unspecified Is this a current diagnosis for this admission?: Yes - Time Time Spent: 30 to 50 Minutes - Inpatient Certification Based on my medical assessment, after consideration of the patient's comorbidities, presenting symptoms, or acuity I expect that the services needed warrant INPATIENT care.: Yes I certify that my determination is in accordance with my understanding of Medicare's requirements for reasonable and necessary INPATIENT services [42 CFR 412.3e].: Yes Medical Necessity: Need for Pain Control, Need for IV Antibiotics, Need for Surgery - Plan Summary Plan Summary: Keep NPOI If pains subside by tomorrow obtain HIDA scan If persistent pains possible lap michael Start IV antibiotics
[2017-08-02] MEDS: FENTANYL CITRATE INJ/PF 100 MCG/2 ML AMPUL IV PRN (21:25)
[2017-08-03] MEDS ORDERED: DEXTROSE 40% GEL 15 GM TUBE PO PRN ×2 (00:48)
[2017-08-03] MEDS ORDERED: MORPHINE SULFATE 10 MG/ML INJ IV PRN (00:48)
[2017-08-03] MEDS ORDERED: DEXTROSE 50%-WATER 25 GM/50 ML DISP.SYRIN IV PRN ×2 (00:48)
[2017-08-03] MEDS ORDERED: GLUCAGON,HUMAN RECOMB 1 MG INJ SUBCUT PRN (00:48)
[2017-08-03] MEDS ORDERED: ONDANSETRON HCL INJ/PF 4 MG/2 ML SDV IV PRN (00:48)
[2017-08-03] MEDS ORDERED: ONDANSETRON HCL INJ/PF 4 MG/2 ML SDV ONE ×2 (01:32→14:32)
[2017-08-03] MEDS: FENTANYL CITRATE INJ/PF 100 MCG/2 ML AMPUL IV PRN ×2 (01:35→05:16)
[2017-08-03] MEDS ORDERED: KETOROLAC TROMETHAMINE INJ/PF 30 MG/1 ML SDV IV ONE (08:15)
[2017-08-03] MEDS ORDERED: MIDAZOLAM 2 MG/2 ML INJ ONE (12:38)
[2017-08-03] MEDS ORDERED: ACETAMINOPHEN 0 ML IV ONE (12:38)
[2017-08-03] MEDS ORDERED: PROPOFOL INJ 200 MG/20 ML VIAL IV ONE (12:38)
[2017-08-03] MEDS ORDERED: BUPIVACAINE HCL 0.5%-EPI 1:200000 INJ/PF 30 ML VIAL ONE (12:46)
--- NOTE | 2017-08-03 13:12 | RADIOLOGY REPORT (SQ) ---
EXAM DESCRIPTION: NM HIDA SCAN WITH CCK COMPLETED DATE/TIME: 08/03/2017 12:50 pm REASON FOR STUDY: acute cholecystitis (CCK PER DR FERRELL) COMPARISON: None. RADIONUCLIDE AND DOSE: DOSAGE RADIONUCLIDE: 5 millicuries Tc99m Mebrofenin. DOSAGE CCK: 2.5 micrograms. DOSAGE MORPHINE: Not required. The route of agent administration: Intravenous TECHNIQUE: Serial imaging right upper quadrant up to 60 minutes following injection of radionuclide. CCK injected after gallbladder visualized. LIMITATIONS: None. FINDINGS: LIVER: Normal visualization without areas of photopenia. INTRAHEPATIC BILE DUCTS: Normal size and no delay in visualization. COMMON BILE DUCT: Normal without dilatation. GALLBLADDER: Normal visualization. Calculated ejection fraction of 26%. Normal range is greater th an 35%. PHYSICAL RESPONSE: Patients presenting complaint was reproduced. OTHER: No other significant finding. IMPRESSION: Abnormal gallbladder ejection fraction of 26% where 35% are better is considered normal. Patient's symptoms were reproduced with injection of the CCK. TECHNICAL DOCUMENTATION: JOB ID: [id number]- All Rights Reserved Reading location - IP/workstation name: [email or web address]
[2017-08-03] MEDS ORDERED: CEFAZOLIN INJ 1 GM VIAL ONE (13:25)
[2017-08-03] MEDS ORDERED: FAMOTIDINE INJ/PF 20 MG/2 ML SDV IV ONE (13:32)
[2017-08-03] MEDS ORDERED: PROMETHAZINE HCL INJ 25 MG/1 ML VIAL IV PRN (14:27)
[2017-08-03] MEDS ORDERED: FENTANYL CITRATE INJ/PF 100 MCG/2 ML AMPUL IV PRN ×3 (14:27)
[2017-08-03] MEDS ORDERED: DIPHENHYDRAMINE HCL 50 MG/ML VIAL IV PRN (14:27)
[2017-08-03] MEDS ORDERED: LIDOCAINE 2% INJ-PF (20 MG/ML) 2 ML AMPUL ONE (14:32)
[2017-08-03] MEDS ORDERED: NEOSTIGMINE METHYLSULFATE 10 MG/10 ML VIAL ONE (14:32)
[2017-08-03] MEDS ORDERED: GLYCOPYRROLATE INJ 0.4 MG/2 ML VIAL ONE (14:32)
[2017-08-03] MEDS ORDERED: VECURONIUM BROMIDE INJ 10 MG VIAL IV ONE (14:32)
[2017-08-03] MEDS ORDERED: KETOROLAC TROMETHAMINE INJ/PF 30 MG/1 ML SDV ONE (16:27)
[2017-08-03] MEDS ORDERED: OXYCODONE-ACETAMINOPHEN 5-325 MG TABLET PO PRN (16:29)
[2017-08-03] MEDS: FENTANYL CITRATE INJ/PF 100 MCG/2 ML AMPUL ONE ×2 (16:30→16:35)
[2017-08-03] MEDS ORDERED: NORMAL SALINE 1000 ML 1,000 ML IV PRN (16:31)
[2017-08-03] MEDS: MORPHINE SULFATE 10 MG/ML INJ IV PRN ×2 (18:22→22:28)
--- NOTE | 2017-08-03 18:39 | OPERATIVE REPORT E ---
Operative Report NAME: BRENDA LANE : 1960 AGE: 56Y DATE OF SURGERY: 08/03/2017 ROOM: 414 PREOPERATIVE DIAGNOSIS: Malfunctioning gallbladder. POSTOPERATIVE DIAGNOSIS: Malfunctioning gallbladder. OPERATION: Laparoscopic cholecystectomy. SURGEON: DIDIER FERRELL M.D. ANESTHESIA: General. INDICATION: This is a 56-year-old female with severe right upper quadrant pain after fatty meals. She had an ultrasound of the gallbladder. It showed possible sludge versus thickened wall. She did have a HIDA scan this morning which showed ejection fraction of about 24% and elicited her symptoms with injection of morphine. The patient is foundry tender in the right upper quadrant. Because of this, the patient is taken to the OR for laparoscopic cholecystectomy. DESCRIPTION OF PROCEDURE: The patient was placed in the supine position and intubated. After intubation, she has a small peripheral IV, and the anesthesiologist requested I put in a central line. The patient was placed in the slight Trendelenburg position, and the right neck prepped and draped in the usual sterile fashion. With the use of the ultrasound, the right internal jugular vein was then identified and then punctured and guidewire passed through the needle towards the area of the superior vena cava and the puncture site dilated. Next, a triple lumen inserted. This was about 14 cm, and the catheter anchored to the skin with 3-0 silk, and all the 3 ports aspirated blood easily and instilled saline easily. Sterile dressing was placed over the operative site. The patient tolerated the procedure well. Attention was then directed to the abdomen. The abdomen was then prepped and draped in the usual sterile fashion. Appropriate timeout was called. An infraumbilical incision made and the fascia identified and the fascia opened with the 2 Lucinda clamps, and a Maru trocar inserted into the abdominal cavity through the fascial defect. CO2 insufflated to a pressure of 15 mmHg. Three other trocars were placed, a 12 mm in the subxiphoid and two 5 mm right upper quadrant. The gallbladder noted to be somewhat distended and unable to be clamped. Because of this, the gallbladder was then emptied of at least 60 mL of bile which allowed us to grasp the thickened gallbladder wall. Next, with the visibility quite difficult, another port was placed at the mid epigastric area, and a fan retractor placed. This allowed us better exposure of the cystic duct area by pressing down on the transverse colon. Next, the cystic duct was then identified and clipped with hemoclips and divided within the hemoclips. It was noted to be very small. Next, the cystic artery identified and clipped with hemoclips and divided within the hemoclips with the use of a harmonic nathaly. The gallbladder was then taken out the liver bed with the use of harmonic nathaly. The gallbladder was then removed and placed in an Endobag and pulled out through umbilical port. No obvious palpable stones in the gallbladder. Next, the trocars were put back and CO2 re-insufflated. Next, the operative site of the liver bed was inspected, and no evidence of active bleeding noted. This was irrigated with saline. Next, all the abdominal cavity was inspected visually, and no evidence of any obvious abnormality noted. Following this, all the trocars were removed and CO2 allowed to come out of all the trocar sites. The fascial defect at the infraumbilical area was then closed with a single suture using 0 Vicryl in a [id number] manner. All the skin incisions were then closed with running subcuticular 4-0 Vicryl undyed. Steri-Strips were placed over the incision sites. The patient tolerated the procedure well. Needle, instrument, and sponge counts were all correct. ESTIMATED BLOOD LOSS: About 20 mL. DISPOSITION: The patient then brought to the recovery room in satisfactory condition. DICTATING PHYSICIAN: DIDIER FERRELL M.D. [id number] PHY#: [id number] ID: [id number] JOB#: [id number] ACCT: [id number] cc:DIDIER FERRELL M.D. >
[2017-08-03] MEDS: CEFAZOLIN SODIUM 2 GM in NORMAL SALINE 100 ML IV SCH (22:31)
[2017-08-04] MEDS: CEFAZOLIN SODIUM 2 GM in NORMAL SALINE 100 ML IV SCH (05:42)
[2017-08-04] MEDS: FENTANYL CITRATE INJ/PF 100 MCG/2 ML AMPUL IV PRN (05:42)
[2017-08-04 07:16] LABS: ABSOLUTE EOSINOPHILS # (AUTO) 0.1 10^3/uL (0.0-0.6); ABSOLUTE LYMPHOCYTES (AUTO) 2.1 10^3/uL (0.5-4.7); ABSOLUTE MONOCYTES (AUTO) 0.3 10^3/uL (0.1-1.4); BASOPHILS % (AUTO) 0.5 % (0-2); EOSINOPHILS % (AUTO) 2.2 % (0-6); HEMATOCRIT 35.6 % (36.0-47.0); HEMOGLOBIN 11.8 g/dL (12.0-15.5); LYMPHOCYTES % (AUTO) 31.5 % (13-45); MEAN CORPUSCULAR HEMOGLOBIN 28.1 pg (27.0-33.4); MEAN CORPUSCULAR HGB CONC 33.1 g/dL (32.0-36.0); MEAN CORPUSCULAR VOLUME 85 fl (80-97); MONOCYTES % (AUTO) 5.1 % (3-13); PLATELET COUNT 121 10^3/uL (150-450); RED CELL DISTRIBUTION WIDTH 14.7 % (11.5-14.0); SEGMENTED NEUTROPHILS % (AUTO) 60.7 % (42-78); TOTAL CELLS COUNTED % (AUTO) 100 %; WHITE BLOOD COUNT 6.5 10^3/uL (4.0-10.5)
[2017-08-04 07:35] LABS: ALANINE AMINOTRANSFERASE 119 U/L (9-52); ALBUMIN 3.6 g/dL (3.5-5.0); ALKALINE PHOSPHATASE 69 U/L (38-126); ASPARTATE AMINO TRANSFERASE 116 U/L (14-36); BILIRUBIN,DIRECT 0.3 mg/dL (0.0-0.4); BILIRUBIN,TOTAL 0.7 mg/dL (0.2-1.3); BLOOD UREA NITROGEN 20 mg/dL (7-20); CALCIUM 8.8 mg/dL (8.4-10.2); GLUCOSE 146 mg/dL (75-110); LIPASE 23.7 U/L (23-300); POTASSIUM 3.9 mmol/L (3.6-5.0); TOTAL PROTEIN 6.3 g/dL (6.3-8.2)
[2017-08-04 07:45] LABS: ANION GAP 6 (5-19); CARBON DIOXIDE 31 mmol/L (22-30); CHLORIDE 102 mmol/L (98-107); SODIUM 138.8 mmol/L (137-145)
[2017-08-04 08:42] VITALS: BP 125/61
--- NOTE | 2017-08-09 22:11 | DISCHARGE SUMMARY E ---
Discharge Summary NAME: BRENDA LANE : 1960 AGE: 56Y ADMITTED: 08/02/2017 DISCHARGED: 08/04/2017 PROCEDURE DONE: On 08/03/17, laparoscopic cholecystectomy. FINAL DIAGNOSIS: Biliary dyskinesia. HOSPITAL COURSE: Patient admitted for severe right upper quadrant pains, worse with food intake. This has been ongoing for the past couple of days, associated with nausea. She had multiple workups in the past. No stones apparent in ultrasound of the gallbladder. Sent her for a HIDA scan on 08/03/17 which showed ejection fraction of the gallbladder at 24% and her pains were the same as when given CCK. Because of this, patient then underwent laparoscopic cholecystectomy on 08/03/17. Postoperatively, patient did well and discharged improved on 08/04/17. She was tolerating a soft diet on the day of discharge. DISCHARGE INSTRUCTIONS: Patient to be followed up in the surgical clinic in 2 weeks. DICTATING PHYSICIAN: DIDIER FERRELL M.D. [id number] PHY#: [id number] ID: [id number] JOB#: [id number] ACCT: [id number] cc:DIDIER FERRELL M.D. >
== END 2017-08-04 10:03 | disposition home or self-care (01) | DRG 418 ==
LOC: ER 16:13 → EH 19:57 → 4N 08-03 02:27
PROVIDERS: ADMIT Surgery; ATTEND Surgery
PROC: 02HV33Z Insertion of Infusion Device into Superior Vena Cava, Percutaneous Approach (ICD-10-PCS; 2017-08-03)
PROC: 0FT44ZZ Resection of Gallbladder, Percutaneous Endoscopic Approach (ICD-10-PCS; principal; 2017-08-03 13:30)
DX: K82.8 Other specified diseases of gallbladder (principal); Z68.43 Body mass index [BMI] 50.0-59.9, adult; K81.0 Acute cholecystitis; E78.00 Pure hypercholesterolemia, unspecified; I10 Essential (primary) hypertension; R01.1 Cardiac murmur, unspecified; J45.909 Unspecified asthma, uncomplicated; G43.909 Migraine, unspecified, not intractable, without status migrainosus; E11.9 Type 2 diabetes mellitus without complications; K21.9 Gastro-esophageal reflux disease without esophagitis; M19.90 Unspecified osteoarthritis, unspecified site; F32.9 Major depressive disorder, single episode, unspecified; Z90.710 Acquired absence of both cervix and uterus; E66.01 Morbid (severe) obesity due to excess calories; Z87.891 Personal history of nicotine dependence; Z88.3 Allergy status to other anti-infective agents; Z88.8 Allergy status to other drugs, medicaments and biological substances; Z82.61 Family history of arthritis; Z82.49 Family history of ischemic heart disease and other diseases of the circulatory system; Z82.3 Family history of stroke; Z83.3 Family history of diabetes mellitus; Z83.6 Family history of other diseases of the respiratory system; Z80.0 Family history of malignant neoplasm of digestive organs; Z79.4 Long term (current) use of insulin; Z79.899 Other long term (current) drug therapy
CPT/HCPCS: 36415; 76705; 78227; 790; 80053; 81001; 82962; 83036; 83690; 85025; 88304; 99285; A9537; C1751; J0131; J0690; J1885; J2250; J2270; J2405; J2704; J2805; J3010; J3490; J7030; Q9969; S0028; S0119

== ENCOUNTER 2017-08-09 22:43 | Emergency (ER) | payer OTHER, MEDICAID ==
[2017-08-09] MEDS ORDERED: ASPIRIN 81 MG TABLET, CHEWABLE PO ONE (23:22)
--- NOTE | 2017-08-10 00:32 | RADIOLOGY REPORT (SQ) ---
EXAM DESCRIPTION: CHEST SINGLE VIEW CLINICAL HISTORY: 56 years Female, cp COMPARISON: 9.17.16 NUMBER OF VIEWS/TECHNIQUE: 1/AP LIMITATIONS: None. FINDINGS: Normal lung volume, clear parenchyma, normal cardiac silhouette, and intact bony thorax. IMPRESSION: No acute cardiopulmonary findings.
[2017-08-10 00:43] LABS: ABSOLUTE BASOPHILS # (AUTO) 0.1 10^3/uL (0.0-0.2); ABSOLUTE EOSINOPHILS # (AUTO) 0.3 10^3/uL (0.0-0.6); ABSOLUTE LYMPHOCYTES (AUTO) 2.1 10^3/uL (0.5-4.7); ABSOLUTE MONOCYTES (AUTO) 0.4 10^3/uL (0.1-1.4); ABSOLUTE NEUT (AUTO) 5.4 10^3/uL (1.7-8.2); BASOPHILS % (AUTO) 0.9 % (0-2); EOSINOPHILS % (AUTO) 3.8 % (0-6); HEMATOCRIT 39.6 % (36.0-47.0); HEMOGLOBIN 12.9 g/dL (12.0-15.5); LYMPHOCYTES % (AUTO) 25.7 % (13-45); MEAN CORPUSCULAR HEMOGLOBIN 27.8 pg (27.0-33.4); MEAN CORPUSCULAR HGB CONC 32.5 g/dL (32.0-36.0); MEAN CORPUSCULAR VOLUME 86 fl (80-97); MONOCYTES % (AUTO) 5.3 % (3-13); PLATELET COUNT 150 10^3/uL (150-450); RED BLOOD COUNT 4.63 10^6/uL (3.72-5.28); RED CELL DISTRIBUTION WIDTH 14.7 % (11.5-14.0); SEGMENTED NEUTROPHILS % (AUTO) 64.3 % (42-78); TOTAL CELLS COUNTED % (AUTO) 100 %; WHITE BLOOD COUNT 8.4 10^3/uL (4.0-10.5)
[2017-08-10 01:07] LABS: ALANINE AMINOTRANSFERASE 53 U/L (9-52); ALBUMIN 3.9 g/dL (3.5-5.0); ALKALINE PHOSPHATASE 86 U/L (38-126); ANION GAP 11 (5-19); ASPARTATE AMINO TRANSFERASE 30 U/L (14-36); BILIRUBIN,DIRECT 0.4 mg/dL (0.0-0.4); BILIRUBIN,TOTAL 0.5 mg/dL (0.2-1.3); BLOOD UREA NITROGEN 18 mg/dL (7-20); CALCIUM 9.4 mg/dL (8.4-10.2); CARBON DIOXIDE 28 mmol/L (22-30); CHLORIDE 98 mmol/L (98-107); CREATINE KINASE 52 U/L (30-135); GLUCOSE 393 mg/dL (75-110); POTASSIUM 4.5 mmol/L (3.6-5.0); SODIUM 137.1 mmol/L (137-145); TOTAL PROTEIN 7.1 g/dL (6.3-8.2)
[2017-08-10] MEDS ORDERED: NORMAL SALINE 1000 ML 1,000 ML IV ONE (01:18)
[2017-08-10 01:25] LABS: CREATINE KINASE MB 0.25 ng/mL (<4.55)
[2017-08-10 01:29] LABS: TROPONIN I < 0.012 ng/mL
[2017-08-10] MEDS ORDERED: INSULIN REG, HUMAN 100 UNIT/ML 3 ML VIAL (PYX) SUBCUT ONE (01:38)
--- NOTE | 2017-08-10 02:15 | ER Document Report ---
ED General - General Chief Complaint: Chest Pain Stated Complaint: DIFFICULTY BREATHING Time Seen by Provider: 08/09/17 23:49 Notes: Patient is 56-year-old female presents with complaint of pleuritic chest pain. Pain is mostly substernal worse when she takes a deep breath. She is 5 days postop from cholecystectomy. She says she has maybe had some very mild swelling in both legs but no pain. No fevers. No vomiting. No diarrhea. No new abdominal pain. No other complaints at this time. TRAVEL OUTSIDE OF THE [place] IN LAST 30 DAYS: No - Related Data Allergies/Adverse Reactions: levofloxacin [From Levaquin] Adverse Reaction (Intermediate, Verified 08/02/17 16:14) nausea and vomiting simvastatin [From Zocor] Adverse Reaction (Intermediate, Verified 08/02/17 16:14 ) rash Past Medical History - Social History Smoking Status: Never Smoker Chew tobacco use (# tins/day): No Frequency of alcohol use: None Drug Abuse: None Family History: Arthritis, CAD, CVA, DM, Hyperlipidemia, Hypertension, Malignancy Patient has suicidal ideation: No Patient has homicidal ideation: No - Past Medical History Cardiac Medical History: Reports: Hx Hypercholesterolemia, Hx Hypertension, Hx Heart Murmur Denies: Hx Coronary Artery Disease, Hx Heart Attack Pulmonary Medical History: Reports: Hx Asthma, Hx Bronchitis, Hx Pneumonia Denies: Hx COPD Neurological Medical History: Reports: Hx Migraine. Denies: Hx Cerebrovascular Accident, Hx Seizures Endocrine Medical History: Reports: Hx Diabetes Mellitus Type 2 Renal/ Medical History: Reports: Hx Kidney Stones. Denies: Hx Peritoneal Dialysis GI Medical History: Reports: Hx Gastroesophageal Reflux Disease, Hx Ulcer - gastric, Hx Colonoscopy, Hx Endoscopy Musculoskeltal Medical History: Reports Hx Arthritis, Reports Hx Musculoskeletal Trauma Psychiatric Medical History: Reports: Hx Depression Traumatic Medical History: Reports: Hx Fractures - wrist, both ankles Past Surgical History: Reports: Hx Cholecystectomy - lap michael, Hx Hysterectomy , Hx Orthopedic Surgery - L knee x2. Denies: Hx Pacemaker - Immunizations Immunizations up to date: Yes Hx Diphtheria, Pertussis, Tetanus Vaccination: Yes - 2012 Hx Pneumococcal Vaccination: 01/30/15 Review of Systems - Review of Systems Notes: My Normal Review Basic REVIEW OF SYSTEMS: CONSTITUTIONAL : Denies fever, chills, or sweats. Denies recent illness. EENT: Denies eye, ear, throat, or mouth pain or symptoms. Denies nasal or sinus congestion. CARDIOVASCULAR: Pleuritic chest pain. RESPIRATORY: Denies cough, cold, or chest congestion. Denies shortness of breath, difficulty breathing, or wheezing. GASTROINTESTINAL: Recent dental surgery. No new abdominal pain. No vomiting. MUSCULOSKELETAL: Denies neck or back pain or joint pain or swelling. SKIN: Denies rash or skin lesions. NEUROLOGICAL: Denies altered mental status or loss of consciousness. Denies headache. Denies weakness or paralysis or loss of use of either side. Denies problems with gait or speech. Denies sensory or motor loss. ALL OTHER SYSTEMS REVIEWED AND NEGATIVE. Physical Exam - Vital signs Vitals: Temp Pulse Resp BP Pulse Ox 97.6 F 100 20 155/79 H 96 08/09/17 22:50 08/09/17 22:50 08/09/17 22:50 08/09/17 22:50 08/09/17 22:50 - Notes Notes: General Appearance: Well nourished, alert, cooperative, no acute distress, no obvious discomfort. Well-appearing. Vitals: reviewed, See vital signs table. Head: no swelling or tenderness to the head Eyes: PERRL, EOMI, Conjuctiva clear Mouth: No decreasd moisture Lungs: No wheezing, No rales, No rhonci, No accessory muscle use, good air exchange bilaterally. Heart: Normal rate, Regular rythm, No murmur, no rub Chest wall: No reproducible pain to palpation of chest wall. Abdomen: Normal BS, soft, No rigidity, No abdominal tenderness, No guarding, no rebound, surgical wounds appear to be healing appropriately without any redness or swelling. Extremities: strength 5/5 in all extremities, good pulses in all extremities, no swelling or tenderness in the extremities, no edema. Skin: warm, dry, appropriate color, no rash Neuro: speech clear, oriented x 3, normal affect, responds appropriately to questions. Course - Re-evaluation Re-evalutation: 08/10/17 05:32 Contrast bolus for the patient CT was not appropriate to rule out PE. D-dimer is elevated. We therefore got a VQ scan which was negative. I suspect patient most likely has pleurisy. I informed her to take NSAID type medications to help with the pain. I informed her to take this with food. I encourage her to also take Tylenol as needed. I encouraged her return to ER if she has fevers, difficulty breathing, or worsening pain. Patient agrees with plan will be discharged home. Dictation of this chart was performed using voice recognition software; therefore, there may be some unintended grammatical errors. - Vital Signs Vital signs: Temp Pulse Resp BP Pulse Ox 97.6 F 100 20 153/80 H 95 08/09/17 22:50 08/09/17 22:50 08/10/17 03:01 08/10/17 04:01 08/10/17 04:01 - Laboratory Result Diagrams: 08/10/17 00:35 08/10/17 00:35 Laboratory results interpreted by me: 08/10/17 08/10/17 08/10/17 00:35 00:35 00:35 RDW 14.7 H D-Dimer 1.66 H Glucose 393 H ALT 53 H Discharge - Discharge Clinical Impression: Chest pain Qualifiers: Chest pain type: unspecified Qualified Code(s): R07.9 - Chest pain, unspecified Additional Instructions: Pleurisy Your chest pain has been diagnosed as pleuritis (pleurisy). This is an inflammation of the surface of the lung tissue. It can be caused by a virus or , occasionally, old scar tissue. It is painful but, for the most part, not a serious problem. This pain is usually made worse by deep breathing, coughing, or sudden movements of the upper body or arms. The treatment is relief of symptoms. It includes rest, antiinflammatory medication, and pain medicine. Resolution of the pain is usually rapid once antiinflammatory medication is started. Warning signs of a more serious problem include: a fever, shortness of breath, pain that radiates to your jaw, shoulders or arms, or coughing up bloody sputum. If any of these symptoms occur, call the physician at once. Follow-up with your doctor on Tuesday or Tuesday for reevaluation.
--- NOTE | 2017-08-10 02:57 | RADIOLOGY REPORT (SQ) ---
EXAM DESCRIPTION: CTA CHEST CLINICAL HISTORY: 56 years Female, chest pain COMPARISON: CR, same day. TECHNIQUE: IV contrast. Multiplanar reformat. This exam was performed according to our departmental dose-optimization program, which includes automated exposure control, adjustment of the mA and/or kV according to patient size and/or use of iterative reconstruction technique. FINDINGS: There is inadequate enhancement of the pulmonary arterial system measuring 129 HU significantly decreasing sensitivity of this exam. Consider repeat, alternative, or surveillance investigation as clinically warranted. There is no gross evidence of pulmonary embolus. No right ventricular strain. Minimal lingular atelectasis or scar. Moderate hepatic steatosis. Splenomegaly partially imaged. Mild dextroconvexity. Inferior neck, axillae, mediastinum, lungs, airway, lymphatics, heart, vasculature, upper abdomen, and musculoskeleton appear otherwise unremarkable. Impression: 1. There is inadequate enhancement of the pulmonary arterial system significantly decreasing sensitivity of this exam. There is no gross evidence of pulmonary embolus. Consider repeat, alternative, or surveillance investigation as clinically warranted. 2. Hepatic steatosis and splenomegaly consistent with prior exam from June 2015.
--- NOTE | 2017-08-10 05:29 | RADIOLOGY REPORT (SQ) ---
EXAM DESCRIPTION: NM LUNG VENT/PERF SCAN CLINICAL HISTORY: 56 years, Female, pleuritic chest pain COMPARISON: CTA, chest, same day. RADIONUCLIDE AND DOSE: 31.4 mCi DTPA. 5.7 mCi MAA. LIMITATIONS: None. FINDINGS: Normal ventilation/perfusion scan. No ventilation or perfusion defect. IMPRESSION: No evidence of PE.
[2017-08-10 05:54] VITALS: BP 137/75
--- NOTE | 2017-08-10 07:34 | EKG REPORT ---
SEVERITY:- NORMAL ECG - SINUS RHYTHM : Confirmed by: Hernan Hays MD 10-Aug-2017 07:33:57
== END 2017-08-10 05:52 | disposition home or self-care (01) ==
LOC: ER 22:43
DX: R07.9 Chest pain, unspecified (principal); E78.00 Pure hypercholesterolemia, unspecified; I10 Essential (primary) hypertension; E11.9 Type 2 diabetes mellitus without complications; Z87.442 Personal history of urinary calculi; Z90.49 Acquired absence of other specified parts of digestive tract; Z90.710 Acquired absence of both cervix and uterus
CPT/HCPCS: 93005; 99285; 96360; 36415; 82553; 82550; 85025; 80053; 84484; 85379; 71045; 78582; 71275; 93010; A9540; A9567; J1815; J7030; Q9969

== ENCOUNTER 2017-10-04 12:45 | Emergency (ER) | payer OTHER, MEDICAID ==
--- NOTE | 2017-10-04 13:24 | ER Document Report ---
ED Medical Screen (RME) - General Chief Complaint: Leg Swelling Stated Complaint: SWOLLEN ANKLE/LEG Time Seen by Provider: 10/04/17 13:18 Notes: RAPID MEDICAL EVALUATION DISCLOSURE I have seen this patient as part of a Rapid Medical Evaluation and, if applicable, placed any initially appropriate orders. The patient will be seen and fully evaluated, including a full history and physical exam, by a provider ( in Main ED or Fast Track) when a room becomes available. 57-year-old female here with complaints of left foot ankle and leg swelling that she noticed 2 days ago after a 12 hour car ride. Yesterday she started to have some intermittent short-lived chest pains but no shortness of breath. She has not tried anything for the symptoms. She denies any CHF history. Denies renal failure history. She has no prior history of DVT or PE but has a family history of DVT. Other than the recent 24 hour car ride, no other prolonged immobilization. EXAM BLEs pitting edema 2+ TRAVEL OUTSIDE OF THE [place] IN LAST 30 DAYS: No - Related Data Allergies/Adverse Reactions: levofloxacin [From Levaquin] Adverse Reaction (Intermediate, Verified 10/04/17 13:19) nausea and vomiting simvastatin [From Zocor] Adverse Reaction (Intermediate, Verified 10/04/17 13:19 ) rash Past Medical History - Social History Chew tobacco use (# tins/day): No Frequency of alcohol use: None Drug Abuse: None - Past Medical History Cardiac Medical History: Reports: Hx Hypercholesterolemia, Hx Hypertension, Hx Heart Murmur Denies: Hx Coronary Artery Disease, Hx Heart Attack Pulmonary Medical History: Reports: Hx Asthma, Hx Bronchitis, Hx Pneumonia Denies: Hx COPD Neurological Medical History: Reports: Hx Migraine. Denies: Hx Cerebrovascular Accident, Hx Seizures Endocrine Medical History: Reports: Hx Diabetes Mellitus Type 2 Renal/ Medical History: Reports: Hx Kidney Stones. Denies: Hx Peritoneal Dialysis GI Medical History: Reports: Hx Gastroesophageal Reflux Disease, Hx Ulcer - gastric, Hx Colonoscopy, Hx Endoscopy Musculoskeltal Medical History: Reports Hx Arthritis, Reports Hx Musculoskeletal Trauma Psychiatric Medical History: Reports: Hx Depression Traumatic Medical History: Reports: Hx Fractures - wrist, both ankles Past Surgical History: Reports: Hx Cholecystectomy - lap michael, Hx Hysterectomy , Hx Orthopedic Surgery - L knee x2. Denies: Hx Pacemaker - Immunizations Immunizations up to date: Yes Hx Diphtheria, Pertussis, Tetanus Vaccination: Yes - 2012 Physical Exam - Vital signs Vitals: Temp Pulse Resp BP Pulse Ox 98.0 F 84 20 140/80 H 97 10/04/17 12:58 10/04/17 12:58 10/04/17 12:58 10/04/17 12:58 10/04/17 12:58 Course - Vital Signs Vital signs: Temp Pulse Resp BP Pulse Ox 98.0 F 84 20 140/80 H 97 10/04/17 12:58 10/04/17 12:58 10/04/17 12:58 10/04/17 12:58 10/04/17 12:58 Doctor's Discharge - Discharge Referrals: CALLIE HUERTA PA-C [Primary Care Provider] - Follow up as needed
[2017-10-04 14:47] LABS: ABSOLUTE EOSINOPHILS # (AUTO) 0.1 10^3/uL (0.0-0.6); ABSOLUTE LYMPHOCYTES (AUTO) 1.9 10^3/uL (0.5-4.7); ABSOLUTE MONOCYTES (AUTO) 0.2 10^3/uL (0.1-1.4); ABSOLUTE NEUT (AUTO) 2.1 10^3/uL (1.7-8.2); BASOPHILS % (AUTO) 0.8 % (0-2); EOSINOPHILS % (AUTO) 3.4 % (0-6); HEMATOCRIT 40.6 % (36.0-47.0); HEMOGLOBIN 13.4 g/dL (12.0-15.5); LYMPHOCYTES % (AUTO) 42.9 % (13-45); MEAN CORPUSCULAR HEMOGLOBIN 27.9 pg (27.0-33.4); MEAN CORPUSCULAR HGB CONC 33.1 g/dL (32.0-36.0); MEAN CORPUSCULAR VOLUME 84 fl (80-97); MONOCYTES % (AUTO) 5.1 % (3-13); PLATELET COUNT 127 10^3/uL (150-450); RED CELL DISTRIBUTION WIDTH 14.4 % (11.5-14.0); SEGMENTED NEUTROPHILS % (AUTO) 47.8 % (42-78); TOTAL CELLS COUNTED % (AUTO) 100 %; WHITE BLOOD COUNT 4.4 10^3/uL (4.0-10.5)
[2017-10-04 14:50] LABS: ALANINE AMINOTRANSFERASE 68 U/L (9-52); ALBUMIN 4.3 g/dL (3.5-5.0); ALKALINE PHOSPHATASE 103 U/L (38-126); ANION GAP 9 (5-19); ASPARTATE AMINO TRANSFERASE 49 U/L (14-36); BILIRUBIN,DIRECT 0.4 mg/dL (0.0-0.4); BILIRUBIN,TOTAL 0.6 mg/dL (0.2-1.3); BLOOD UREA NITROGEN 14 mg/dL (7-20); CALCIUM 9.3 mg/dL (8.4-10.2); CARBON DIOXIDE 29 mmol/L (22-30); CHLORIDE 101 mmol/L (98-107); GLUCOSE 328 mg/dL (75-110); POTASSIUM 4.3 mmol/L (3.6-5.0); SODIUM 139.4 mmol/L (137-145); TOTAL PROTEIN 7.8 g/dL (6.3-8.2)
[2017-10-04 14:53] LABS: NT PRO BNP 57 pg/mL (5-900)
[2017-10-04 14:59] LABS: TROPONIN I < 0.012 ng/mL
--- NOTE | 2017-10-04 15:06 | ER Document Report ---
ED Extremity Problem, Lower - General Mode of Arrival: Ambulatory Information source: Patient TRAVEL OUTSIDE OF THE [place] IN LAST 30 DAYS: No <TON ALVARADO - Last Filed: 10/04/17 15:42> <SEFERINO CASTRO - Last Filed: 10/04/17 18:33> - General Chief Complaint: Leg Swelling Stated Complaint: SWOLLEN ANKLE/LEG Time Seen by Provider: 10/04/17 13:18 Notes: 57 y.o female with HTN, HLD, DM, GERD, depression, migraines, arthritis and a hx of kidney stones presents to the ED with edema to her LLE of onset 2 days ago after traveling in the car for 12 hours to [place]. Pt complains of pain to the LLE, more prominently to the posterior lower leg and posterior knee. Pt states that the edema and pain has been worsening since onset. She denies being on any blood thinners or Aspirin daily. Pt has a PSHx of hysterectomy and cholecystectomy in July this year. Pt was seen here in the first week of July this year for her cholecystectomy and then was seen here again one week following her cholecystectomy complaining SOB. [place] Doppler scan was preformed back in July and was negative. (TON ALVARADO) - Related Data Allergies/Adverse Reactions: levofloxacin [From Levaquin] Adverse Reaction (Intermediate, Verified 10/04/17 13:19) nausea and vomiting simvastatin [From Zocor] Adverse Reaction (Intermediate, Verified 10/04/17 13:19 ) rash Past Medical History - General Information source: Patient - Social History Smoking Status: Never Smoker Chew tobacco use (# tins/day): No Frequency of alcohol use: None Drug Abuse: None Family History: Arthritis, CAD, CVA, DM, Hyperlipidemia, Hypertension, Malignancy Patient has suicidal ideation: No Patient has homicidal ideation: No - Past Medical History Cardiac Medical History: Reports: Hx Hypercholesterolemia, Hx Hypertension, Hx Heart Murmur Pulmonary Medical History: Reports: Hx Asthma, Hx Bronchitis, Hx Pneumonia Neurological Medical History: Reports: Hx Migraine Endocrine Medical History: Reports: Hx Diabetes Mellitus Type 2 Renal/ Medical History: Reports: Hx Kidney Stones. Denies: Hx Peritoneal Dialysis GI Medical History: Reports: Hx Gastroesophageal Reflux Disease, Hx Ulcer - gastric, Hx Colonoscopy, Hx Endoscopy Musculoskeltal Medical History: Reports Hx Arthritis, Reports Hx Musculoskeletal Trauma Psychiatric Medical History: Reports: Hx Depression Traumatic Medical History: Reports: Hx Fractures - wrist, both ankles Past Surgical History: Reports: Hx Cholecystectomy - lap michael, Hx Hysterectomy , Hx Orthopedic Surgery - L knee x2 - Immunizations Immunizations up to date: Yes Hx Diphtheria, Pertussis, Tetanus Vaccination: Yes - 2012 Hx Pneumococcal Vaccination: 01/30/15 <TON ALVARADO - Last Filed: 10/04/17 15:42> Review of Systems - Review of Systems Constitutional: No symptoms reported EENT: No symptoms reported Cardiovascular: No symptoms reported Respiratory: No symptoms reported Gastrointestinal: No symptoms reported Genitourinary: No symptoms reported Female Genitourinary: No symptoms reported Musculoskeletal: See HPI, Leg swelling - LLE, Ankle swelling - LT ankle, Other - LLE pain Skin: No symptoms reported Hematologic/Lymphatic: No symptoms reported Neurological/Psychological: No symptoms reported -: Yes All other systems reviewed and negative <TON ALVARADO - Last Filed: 10/04/17 15:42> Physical Exam <TON ALVARADO - Last Filed: 10/04/17 15:42> <SEFERINO CASTRO - Last Filed: 10/04/17 18:33> - Vital signs Vitals: Temp Pulse Resp BP Pulse Ox 98.0 F 84 20 140/80 H 97 10/04/17 12:58 10/04/17 12:58 10/04/17 12:58 10/04/17 12:58 10/04/17 12:58 - Notes Notes: Physical Exam: General: Alert, appears well. Morbidly obese. HEENT: Normocephalic. Atraumatic. PERRL. Extraocular movements intact. Oropharynx clear. Neck: Supple. Non-tender. Respiratory: No respiratory distress. Clear and equal breath sounds bilaterally. Cardiovascular: Regular rate and rhythm. Abdominal: Morbidly obese. Non-tender. No distension. Normal Bowel Sounds. Back: Non-tender. No deformity or step off. Extremities: Upper extremities: Normal inspection. Normal ROM. Lower extremities: LT dorsal foot edema and lateral ankle edema as compared to the LT medial ankle. Very tender to palpation to the LT medial thigh. Neurological: Normal cognition. AAOx3. Normal speech. Psychological: Normal affect. Normal Mood. Skin: Warm. Dry. Normal color. (TON ALVARADO) Course - Laboratory Result Diagrams: 10/04/17 14:15 10/04/17 14:15 <TON ALVARADO - Last Filed: 10/04/17 15:42> - Laboratory Result Diagrams: 10/04/17 14:15 10/04/17 14:15 - Diagnostic Test Radiology reviewed: Reports reviewed - Venous Doppler of the left lower extremity is negative for DVT <SEFERINO CASTRO - Last Filed: 10/04/17 18:33> - Re-evaluation Re-evalutation: 10/04/17 18:32 A review of the patient's medications shows she has been filling prescriptions for narcotics from her primary care provider on a regular basis for the last several months. (SEFERINO CASTRO) - Vital Signs Vital signs: Temp Pulse Resp BP Pulse Ox 98.0 F 84 20 140/80 H 97 10/04/17 12:58 10/04/17 12:58 10/04/17 12:58 10/04/17 12:58 10/04/17 12:58 - Laboratory Laboratory results interpreted by me: 10/04/17 10/04/17 14:15 14:15 RDW 14.4 H Plt Count 127 L Glucose 328 H AST 49 H ALT 68 H Discharge <TON ALVARADO - Last Filed: 10/04/17 15:42> <SEFERINO CASTRO - Last Filed: 10/04/17 18:33> - Discharge Clinical Impression: Edema of left lower extremity, Pain of left lower extremity Condition: Stable Disposition: HOME, SELF-CARE Additional Instructions: There were no blood clots found on the venous Doppler. Your lab work did not show evidence for infection or blood clots. You did have an elevated blood sugar at 328. You should elevate your legs as much as possible to help reduce the swelling. Be sure to check your blood sugars regularly. Follow-up with your doctor tomorrow for reevaluation and for any pain medications that you may require. RETURN TO THE EMERGENCY ROOM IF ANY NEW OR WORSENING SYMPTOMS. Referrals: CALLIE HUERTA PA-C [Primary Care Provider] - Follow up tomorrow Scribe Attestation: 10/04/17 15:25 I personally performed the services described in the documentation, reviewed and edited the documentation which was dictated to the scribe in my presence, and it accurately records my words and actions. (SEFERINO CASTRO) Scribe Documentation - Scribe Written by Eula:: Eula Lopez [id number] 10/04/17 acting as scribe for :: Iman <TON ALVARADO - Last Filed: 10/04/17 15:42>
--- NOTE | 2017-10-04 15:11 | RADIOLOGY REPORT (SQ) ---
EXAM DESCRIPTION: CHEST 2 VIEWS COMPLETED DATE/TIME: 10/04/2017 3:03 pm REASON FOR STUDY: CP COMPARISON: 01/17/2016. EXAM PARAMETERS: NUMBER OF VIEWS: two views TECHNIQUE: Digital Frontal and Lateral radiographic views of the chest acquired. RADIATION DOSE: NA LIMITATIONS: none FINDINGS: LUNGS AND PLEURA: No opacities, masses or pneumothorax. No pleural effusion. MEDIASTINUM AND HILAR STRUCTURES: No masses or contour abnormalities. HEART AND VASCULAR STRUCTURES: Heart normal size. No evidence for failure. BONES: No acute findings. HARDWARE: None in the chest. OTHER: No other significant finding. IMPRESSION: NO ACUTE RADIOGRAPHIC FINDING IN THE CHEST. TECHNICAL DOCUMENTATION: JOB ID: [id number] [employer]- All Rights Reserved Reading location - IP/workstation name: [email or web address]
[2017-10-04 19:05] VITALS: BP 127/58
--- NOTE | 2017-10-04 19:44 | XCELERA REPORT ---
[address] [address] Lower Extremity Venous Evaluation Name: BRENDA LANE Age: 57 yrs Gender: Female : 1960 Patient Status: Emergency Patient Location: ER Study Date: 10/04/2017 04:28 PM Procedure: Color flow and duplex imaging of the veins of the left lower extremity as well as the right Common Femoral vein. Reason For Study: L leg pain w/ swelling after car ride to [place] Ordering Physician: SEFERINO CASTRO Performed By: Hanny Rowe Right Sided Venous Evaluation The right common femoral vein is fully compressible. Spontaneous and phasic flow is present in the right common femoral vein. Left Sided Venous Evaluation The distal Femoral and infrageniculate veins were not well seen, due to body habitus, equipment limitations. Normal vessel filling wall to wall, compression and augmentation as well as Colour flow down to the Femoral veins. Critical Findings Discussed with Dr Castro. Interpretation Summary No duplex evidence of DVT or obstruction in the left lower extremity nor in the right Common Femoral vein. Study limited by body habitus. : SEFERINO CASTRO > Kei Andrews
--- NOTE | 2017-10-04 22:10 | EKG REPORT ---
SEVERITY:- NORMAL ECG - SINUS RHYTHM : Confirmed by: Cathy Dawson MD 04-Oct-2017 22:10:03
== END 2017-10-04 19:05 | disposition home or self-care (01) ==
LOC: ER 12:45
DX: R60.0 Localized edema (principal); M25.562 Pain in left knee; M79.662 Pain in left lower leg; I10 Essential (primary) hypertension; J45.909 Unspecified asthma, uncomplicated; E11.9 Type 2 diabetes mellitus without complications; E66.01 Morbid (severe) obesity due to excess calories; Z68.43 Body mass index [BMI] 50.0-59.9, adult; Z79.891 Long term (current) use of opiate analgesic
CPT/HCPCS: 36415; 71046; 80053; 83880; 84484; 85025; 85379; 93005; 93010; 93971; 99284

== ENCOUNTER 2017-10-17 17:14 | Emergency (ER) | payer OTHER, MEDICAID ==
[2017-10-17 17:37] VITALS: BP 138/84
== END 2017-10-17 18:45 | disposition left against medical advice (07) ==
LOC: ER 17:14
DX: Z53.21 Procedure and treatment not carried out due to patient leaving prior to being seen by health care provider (principal)

== ENCOUNTER 2017-10-29 21:40 | Emergency (ER) | payer OTHER, MEDICAID ==
[2017-10-29] MEDS ORDERED: ACETAMINOPHEN 325 MG TABLET PO ONE (22:06)
--- NOTE | 2017-10-29 22:09 | ER Document Report ---
ED Medical Screen (RME) - General Chief Complaint: Headache Stated Complaint: HEADACHE, DIZZY, Time Seen by Provider: 10/29/17 22:05 Mode of Arrival: Ambulatory Information source: Patient TRAVEL OUTSIDE OF THE [place] IN LAST 30 DAYS: No - HPI Patient complains to provider of: headache, cp, high blood sugar Notes: 10/29/17 22:07 Patient is here with complaints of headache. She states she has had a headache for about a week now. It is on the right side of her head. It has been intermittent but over the last few days become more constant. No head injury. No blood thinners. She states that she is also had some numbness to the left side of her face for the last few days. Last evening she had an episode where she was "incoherent" according to her . This lasted for about an hour. He reports that her blood sugar was high, they gave her insulin and she seemed to improve after some time. States that her blood sugars a bit high because she has been out of her insulin needles. She also complains of some chest pain and shortness of breath for the last few days. Physical exam: Patient is in no distress. Nontoxic-appearing. Nonfocal neurological exam at this time. An initial examination was made on the patient as part of the triage process, and it was determined a more comprehensive evaluation was necessary. Initial labs were ordered and patient was transferred to another provider in the ED who assumed care and finished evaluation and plan. - Related Data Allergies/Adverse Reactions: levofloxacin [From Levaquin] Adverse Reaction (Intermediate, Verified 10/04/17 13:19) nausea and vomiting simvastatin [From Zocor] Adverse Reaction (Intermediate, Verified 10/04/17 13:19 ) rash Past Medical History - Past Medical History Cardiac Medical History: Reports: Hx Hypercholesterolemia, Hx Hypertension, Hx Heart Murmur Denies: Hx Coronary Artery Disease, Hx Heart Attack Pulmonary Medical History: Reports: Hx Asthma, Hx Bronchitis, Hx Pneumonia Denies: Hx COPD Neurological Medical History: Reports: Hx Migraine. Denies: Hx Cerebrovascular Accident, Hx Seizures Endocrine Medical History: Reports: Hx Diabetes Mellitus Type 2 Renal/ Medical History: Reports: Hx Kidney Stones. Denies: Hx Peritoneal Dialysis GI Medical History: Reports: Hx Gastroesophageal Reflux Disease, Hx Ulcer - gastric, Hx Colonoscopy, Hx Endoscopy Musculoskeltal Medical History: Reports Hx Arthritis, Reports Hx Musculoskeletal Trauma Psychiatric Medical History: Reports: Hx Depression Traumatic Medical History: Reports: Hx Fractures - wrist, both ankles Past Surgical History: Reports: Hx Cholecystectomy - lap michael, Hx Hysterectomy , Hx Orthopedic Surgery - L knee x2. Denies: Hx Pacemaker - Immunizations Immunizations up to date: Yes Hx Diphtheria, Pertussis, Tetanus Vaccination: Yes - 2012 Physical Exam - Vital signs Vitals: Temp Pulse Resp BP Pulse Ox 98.4 F 95 22 H 154/79 H 97 10/29/17 21:47 10/29/17 21:47 10/29/17 21:47 10/29/17 21:47 10/29/17 21:47 Course - Vital Signs Vital signs: Temp Pulse Resp BP Pulse Ox 98.4 F 95 22 H 154/79 H 97 10/29/17 21:47 10/29/17 21:47 10/29/17 21:47 10/29/17 21:47 10/29/17 21:47 Doctor's Discharge - Discharge Referrals: CALLIE HUERTA PA-C [Primary Care Provider] - Follow up as needed
--- NOTE | 2017-10-29 23:37 | RADIOLOGY REPORT (SQ) ---
EXAM DESCRIPTION: CT HEAD WITHOUT IV CONTRAST COMPLETED DATE/TME: 10/29/2017 22:06 CLINICAL HISTORY: right sided headache, left facial n/t COMPARISON: 01/22/2016 TECHNIQUE: Axial CT of the head obtained from the skull apex to the skull base without contrast. FINDINGS: No acute intracranial hemorrhage identified. No mass, mass effect, shift of the midline, abnormal extra-axial fluid collection or CT evidence of acute ischemic change identified. The ventricular system is unremarkable. No acute abnormalities of the supratentorial white matter, basal ganglia, cerebellum, or brainstem. The visualized paranasal sinuses and the mastoids are clear. No skull fracture identified. Visualized orbits and globes are unremarkable. DLP: 1043.77 mGy-cm IMPRESSION: 1. No acute intracranial abnormality identified. This exam was performed according to our departmental dose-optimization program, which includes automated exposure control, adjustment of the mA and/or kV according to patient size and/or use of iterative reconstruction technique.
[2017-10-30 00:23] LABS: ABSOLUTE BASOPHILS # (AUTO) 0.1 10^3/uL (0.0-0.2); ABSOLUTE EOSINOPHILS # (AUTO) 0.2 10^3/uL (0.0-0.6); ABSOLUTE LYMPHOCYTES (AUTO) 2.3 10^3/uL (0.5-4.7); ABSOLUTE MONOCYTES (AUTO) 0.3 10^3/uL (0.1-1.4); ABSOLUTE NEUT (AUTO) 4.6 10^3/uL (1.7-8.2); BASOPHILS % (AUTO) 0.8 % (0-2); EOSINOPHILS % (AUTO) 3.2 % (0-6); HEMATOCRIT 43.9 % (36.0-47.0); HEMOGLOBIN 14.8 g/dL (12.0-15.5); LYMPHOCYTES % (AUTO) 30.7 % (13-45); MEAN CORPUSCULAR HEMOGLOBIN 28.2 pg (27.0-33.4); MEAN CORPUSCULAR HGB CONC 33.8 g/dL (32.0-36.0); MEAN CORPUSCULAR VOLUME 83 fl (80-97); MONOCYTES % (AUTO) 3.9 % (3-13); PLATELET COUNT 180 10^3/uL (150-450); RED BLOOD COUNT 5.27 10^6/uL (3.72-5.28); RED CELL DISTRIBUTION WIDTH 14.7 % (11.5-14.0); SEGMENTED NEUTROPHILS % (AUTO) 61.4 % (42-78); TOTAL CELLS COUNTED % (AUTO) 100 %; WHITE BLOOD COUNT 7.5 10^3/uL (4.0-10.5)
[2017-10-30 00:41] LABS: INTERNATIONAL RATION (INR) 0.93; PARTIAL THROMBOPLASTIN TIME 28.8 SEC (23.5-35.8); PROTHROMBIN TIME 12.9 SEC (11.4-15.4)
--- NOTE | 2017-10-30 00:41 | RADIOLOGY REPORT (SQ) ---
EXAM DESCRIPTION: XR CHEST 1 VIEW COMPLETED DATE/TME: 10/29/2017 22:06 CLINICAL HISTORY: cp COMPARISON: 10/04/2017 FINDINGS: Single frontal view of the chest. The cardiomediastinal silhouette has normal size and contour. No consolidation, pneumothorax, or pleural effusion. No acute osseous findings. Upper abdominal soft tissues are unremarkable. IMPRESSION: 1. No acute pulmonary process identified.
[2017-10-30 00:42] LABS: ALANINE AMINOTRANSFERASE 60 U/L (9-52); ALBUMIN 4.6 g/dL (3.5-5.0); ALKALINE PHOSPHATASE 102 U/L (38-126); ANION GAP 13 (5-19); ASPARTATE AMINO TRANSFERASE 45 U/L (14-36); BILIRUBIN,DIRECT 0.4 mg/dL (0.0-0.4); BILIRUBIN,TOTAL 0.7 mg/dL (0.2-1.3); BLOOD UREA NITROGEN 18 mg/dL (7-20); CALCIUM 9.7 mg/dL (8.4-10.2); CARBON DIOXIDE 28 mmol/L (22-30); CHLORIDE 96 mmol/L (98-107); GLUCOSE 344 mg/dL (75-110); POTASSIUM 4.6 mmol/L (3.6-5.0); SODIUM 137.2 mmol/L (137-145); TOTAL PROTEIN 8.3 g/dL (6.3-8.2)
[2017-10-30 00:54] LABS: NT PRO BNP 23 pg/mL (5-900)
[2017-10-30 00:55] LABS: TROPONIN I < 0.012 ng/mL
[2017-10-30 01:31] LABS: APPEARANCE,URINE CLEAR; BILIRUBIN,URINE NEGATIVE (NEGATIVE); COLOR,URINE YELLOW; GLUCOSE, URINE >=500 mg/dL (NEGATIVE); KETONES,URINE NEGATIVE (NEGATIVE); LEUKOCYTE ESTERASE,URINE NEGATIVE (NEGATIVE); NITRITE,URINE NEGATIVE (NEGATIVE); PROTEIN,URINE NEGATIVE (NEGATIVE); URINE SPECIFIC GRAVITY 1.029; UROBILINOGEN,URINE NEGATIVE mg/dL (<2.0)
--- NOTE | 2017-10-30 02:03 | ER Document Report ---
ED General - General Chief Complaint: Headache Stated Complaint: HEADACHE, DIZZY, Time Seen by Provider: 10/29/17 22:05 Mode of Arrival: Ambulatory Notes: The patient is a 57-year-old female, past medical history poorly controlled diabetes, hypertension, presents with 1 day of a right-sided headache, diffuse tingling in her body, left-sided facial numbness and feeling lightheaded. Her sugar at home was 421. Patient says she is taking her insulin and Janumet. Patient denies sudden onset of headache, worst headache of her life, fevers, neck stiffness, focal weakness, difficulty walking, blurry vision, chest pain shortness of breath. TRAVEL OUTSIDE OF THE [place] IN LAST 30 DAYS: No - Related Data Allergies/Adverse Reactions: levofloxacin [From Levaquin] Adverse Reaction (Intermediate, Verified 10/29/17 22:10) nausea and vomiting simvastatin [From Zocor] Adverse Reaction (Intermediate, Verified 10/29/17 22:10 ) rash Past Medical History - General Information source: Patient - Social History Smoking Status: Never Smoker Chew tobacco use (# tins/day): No Frequency of alcohol use: None Drug Abuse: None Family History: Arthritis, CAD, CVA, DM, Hyperlipidemia, Hypertension, Malignancy Patient has suicidal ideation: No Patient has homicidal ideation: No - Past Medical History Cardiac Medical History: Reports: Hx Hypercholesterolemia, Hx Hypertension, Hx Heart Murmur Denies: Hx Coronary Artery Disease, Hx Heart Attack Pulmonary Medical History: Reports: Hx Asthma, Hx Bronchitis, Hx Pneumonia Denies: Hx COPD Neurological Medical History: Reports: Hx Migraine. Denies: Hx Cerebrovascular Accident, Hx Seizures Endocrine Medical History: Reports: Hx Diabetes Mellitus Type 2 Renal/ Medical History: Reports: Hx Kidney Stones. Denies: Hx Peritoneal Dialysis GI Medical History: Reports: Hx Gastroesophageal Reflux Disease, Hx Ulcer - gastric, Hx Colonoscopy, Hx Endoscopy Musculoskeltal Medical History: Reports Hx Arthritis, Reports Hx Musculoskeletal Trauma Psychiatric Medical History: Reports: Hx Depression Traumatic Medical History: Reports: Hx Fractures - wrist, both ankles Past Surgical History: Reports: Hx Cholecystectomy - lap michael, Hx Hysterectomy , Hx Orthopedic Surgery - L knee x2. Denies: Hx Pacemaker - Immunizations Immunizations up to date: Yes Hx Diphtheria, Pertussis, Tetanus Vaccination: Yes - 2012 Hx Pneumococcal Vaccination: 01/30/15 Review of Systems - Review of Systems Notes: REVIEW OF SYSTEMS: CONSTITUTIONAL: -fevers, -chills EENT: -eye pain, -difficulty swallowing, -nasal congestion CARDIOVASCULAR: -chest pain, -syncope. RESPIRATORY: -cough, -SOB GASTROINTESTINAL: -abdominal pain, -nausea, -vomiting, -diarrhea GENITOURINARY: -dysuria, -hematuria MUSCULOSKELETAL: -back pain, -neck pain SKIN: -rash or skin lesions. HEMATOLOGIC: -easy bruising or bleeding. LYMPHATIC: -swollen, enlarged glands. NEUROLOGICAL: -altered mental status or loss of consciousness, +headache, + tingling of left cheek PSYCHIATRIC: -anxiety, -depression. ALL OTHER SYSTEMS REVIEWED AND NEGATIVE. Physical Exam - Vital signs Vitals: Temp Pulse Resp BP Pulse Ox 98.4 F 95 22 H 154/79 H 97 10/29/17 21:47 10/29/17 21:47 10/29/17 21:47 10/29/17 21:47 10/29/17 21:47 - Notes Notes: PHYSICAL EXAMINATION: GENERAL: Well-appearing, well-nourished and in no acute distress. HEAD: Atraumatic, normocephalic. EYES: Pupils equal round and reactive to light, extraocular movements intact, sclera anicteric, conjunctiva are normal. ENT: nares patent, oropharynx clear without exudates. Moist mucous membranes. NECK: Normal range of motion, supple without lymphadenopathy LUNGS: Breath sounds clear to auscultation bilaterally and equal. No wheezes rales or rhonchi. HEART: Regular rate and rhythm without murmurs ABDOMEN: Soft, nontender, normoactive bowel sounds. No guarding, no rebound. No masses appreciated. EXTREMITIES: Normal range of motion, no pitting or edema. No cyanosis. NEUROLOGICAL: Cranial nerves grossly intact, other than mild tingling of left cheek. Normal speech, normal gait. Normal sensory and motor exams. PSYCH: Normal mood, normal affect. SKIN: Warm, Dry, normal turgor, no rashes or lesions noted. Course - Re-evaluation Re-evalutation: Patient feels much better after headache cocktail. CT head did not reveal any acute bleeds or evidence of a stroke. Her only symptoms now are mild tingling of her left cheek. Her symptoms are not consistent with SAH, ICH or meningitis at this time. Blood work is unremarkable, other than her hyperglycemia without an anion gap. She also does not have any symptoms of an acute CVA. Instructed her to stay hydrated and follow-up with her primary care physician this week to have her blood sugars rechecked and to see if she needs any adjustments of her diabetes medications. - Vital Signs Vital signs: Temp Pulse Resp BP Pulse Ox 98.4 F 95 22 H 154/79 H 97 10/29/17 21:47 10/29/17 21:47 10/29/17 21:47 10/29/17 21:47 10/29/17 21:47 - Laboratory Result Diagrams: 10/30/17 00:05 10/30/17 00:05 Laboratory results interpreted by me: 10/29/17 10/29/17 10/30/17 23:18 23:29 00:05 RDW 14.7 H Chloride Glucose POC Glucose 365 H AST ALT Total Protein Urine Glucose (UA) >=500 H 10/30/17 00:05 RDW Chloride 96 L Glucose 344 H POC Glucose AST 45 H ALT 60 H Total Protein 8.3 H Urine Glucose (UA) - Diagnostic Test Radiology reviewed: Image reviewed, Reports reviewed Radiology results interpreted by me: CT Head: NAD Discharge - Discharge Clinical Impression: Hyperglycemia, Numbness and tingling of left side of face Headache Qualifiers: Headache type: unspecified Headache chronicity pattern: unspecified pattern Intractability: not intractable Qualified Code(s): R51 - Headache Condition: Stable Disposition: HOME, SELF-CARE Additional Instructions: HEADACHE: The physician does not feel that the headache you are experiencing has a serious underlying cause. Most headaches are due to emotional stress, with resultant muscle tension (tension headache). Occasionally, headaches are secondary to changes in the blood vessels of the scalp (vascular headache and migraine headache). Sometimes, a headache is the first symptom of another developing illness, such as a viral infection. You have no evidence of stroke, bleeding, meningitis, or other serious cause of your headache. The treatment of headaches varies with the severity and cause of the pain. Not all headaches need pain shots. In fact, there is evidence that using narcotics for headaches may make them worse in the long run. The physician will determine the therapy that's in your best interest. If you develop a fever, if the headache is different from any you've previously experienced, or if the headache progressively worsens, then call your physician at once or go to the emergency room. FOLLOW-UP CARE: If you have been referred to a physician for follow-up care, call the physician s office for an appointment as you were instructed or within the next two days. If you experience worsening or a significant change in your symptoms, notify the physician immediately or return to the Emergency Department at any time for re-evaluation. HYPERGLYCEMIA (HIGH BLOOD SUGAR): You have an abnormally high blood sugar. Not all high blood sugar requires long-term treatment. High blood sugar can be due to medications, , or the stress of illness. (These cases are "borderline diabetes.") If the doctor feels your high blood sugar might resolve with time, you may not require treatment now. It's very important that you follow through, to see if the blood sugar returns to normal levels. Uncontrolled high blood sugar leads to early heart disease, strokes, nerve damage, eye damage, and kidney damage. Call the physician if there is faintness, excess sleepiness, or very rapid breathing. DIABETES: You have an abnormally high blood sugar, suspicious for diabetes. Not all high blood sugar requires long-term treatment. High blood sugar can be due to medications, , or the stress of illness. (These cases are "borderline diabetes.") If the doctor feels your high blood sugar might get better with time, you may not require treatment now. It's very important that you follow through. Uncontrolled high blood sugar leads to early heart disease, strokes, nerve damage, eye damage, and kidney damage. All diabetics should follow a diet designed to control the blood sugar. Overweight diabetics should exercise regularly and lose weight. If this is not sufficient to control the blood sugar, pills or insulin shots are necessary. Younger people who develop diabetes almost always require insulin daily. Home testing of blood sugars or urine sugar is required. Diabetic teaching is available to help you figure insulin doses and monitor the blood sugar. Call the physician if there is faintness, excess sleepiness, or very rapid breathing. If hypoglycemia (LOW blood sugar) develops, symptoms are shakiness, weakness, sweating, and confusion. In this case, you should eat or drink something with sugar at once. INSULIN: Insulin is a natural hormone that lowers blood sugar. Normal blood sugar prevents complications of diabetes. For most diabetics, insulin is the best way to treat the illness. Be sure you know how to measure the insulin correctly. Insulin is measured in "units." There are three types of insulin: N (NPH or long acting), R (regular or short acting), and L (Lente or very long acting). Be sure you are using the right amount of each type. Insulin must be injected into the fat. You can use the abdomen, upper arms , and thighs. Select a different injection site every time. Wipe the site with alcohol before injecting. When first starting insulin, some adjusting of the insulin dose is necessary. Keep a record of each insulin dose and time of injection, and of the blood sugar and the time you test it. Sometimes insulin can make the blood sugar too low. If you become dizzy, sweaty, shaky, or confused, you may be having a hypoglycemic episode. Immediately use juice or some other sweet food. Call the doctor if the symptoms don't go away. ORAL HYPOGLYCEMIC MEDICATION: Oral hypoglycemics are medicines that lower blood sugar in diabetics. They are not effective for younger diabetics who require insulin. Some brands are tolbutamide, Orinase, glipizide, Glucotrol, glyburide, DiaBeta, Glynase, and Micronase. Some medications can increase or decrease the effect of Diabinese. Examples are Clofibrate (Atromid-S), phenylbutazone (Butazolidin), aspirin, sulfonamides, Coumadin, allopurinol (Zyloprim), probenecid (Benemid), acetazolamide (Diamox), beta blockers, steroids, estrogens, Indocin, INH, Levothyroxine, nicotinic acid, Diflucan, Dilantin, and thiazide diuretics. Be sure your doctor knows all the medicines you take, and talk to your doctor before making any changes in your medicines. If you develop symptoms of shakiness, sweats, and lightheadedness, your blood sugar may have gone too low. Eat or drink a small amount of sweet food. If symptoms don't go away, call your doctor. FOLLOW-UP CARE: If you have been referred to a physician for follow-up care, call the physician s office for an appointment as you were instructed or within the next two days. If you experience worsening or a significant change in your symptoms, notify the physician immediately or return to the Emergency Department at any time for re-evaluation. Prescriptions: Butalb/Acetaminophen/Caffeine [Fioricet 50-300-40 mg Capsule] 1 cap PO Q4 PRN # 14 cap PRN Reason: Forms: Elevated Blood Pressure Referrals: CALLIE HUERTA PA-C [Primary Care Provider] - Follow up as needed
[2017-10-30] MEDS ORDERED: BUTALB/ACETAMINOPHEN/CAFFEINE 1 TAB EACH PO ONE (02:08)
[2017-10-30] MEDS ORDERED: DIPHENHYDRAMINE HCL 50 MG CAPSULE PO ONE (02:10)
[2017-10-30] MEDS ORDERED: METOCLOPRAMIDE HCL 10 MG TABLET PO ONE (02:10)
[2017-10-30] MEDS ORDERED: NAPROXEN 250 MG TABLET PO ONE (02:11)
[2017-10-30 04:38] VITALS: BP 118/58
--- NOTE | 2017-10-30 19:11 | EKG REPORT ---
SEVERITY:- NORMAL ECG - SINUS RHYTHM : Confirmed by: Cathy Dawson MD 30-Oct-2017 19:10:10
== END 2017-10-30 02:45 | disposition home or self-care (01) ==
LOC: ER 21:40
DX: E11.65 Type 2 diabetes mellitus with hyperglycemia (principal); Z79.4 Long term (current) use of insulin; R51 Headache; R20.2 Paresthesia of skin; R20.0 Anesthesia of skin; R42 Dizziness and giddiness; I10 Essential (primary) hypertension; J45.909 Unspecified asthma, uncomplicated
CPT/HCPCS: 93005; 99285; 36415; 82962; 85025; 85610; 85730; 80053; 81001; 84484; 83880; 71045; 70450; 93010; J3490

== ENCOUNTER 2017-12-12 07:10 | Emergency (ER) | payer OTHER, MEDICAID ==
--- NOTE | 2017-12-12 07:38 | EKG REPORT ---
SEVERITY:- NORMAL ECG - SINUS RHYTHM : Confirmed by: Hernan Hays MD 12-Dec-2017 07:37:18
--- NOTE | 2017-12-12 07:56 | ER Document Report ---
ED Cardiac - General Mode of Arrival: Ambulatory Information source: Patient TRAVEL OUTSIDE OF THE [place] IN LAST 30 DAYS: No <RICHARD LYON - Last Filed: 12/12/17 09:01> <SEFERINO CASTRO - Last Filed: 12/12/17 11:51> - General Chief Complaint: Chest Pain Stated Complaint: CHEST PAIN Time Seen by Provider: 12/12/17 07:44 Notes: 57-year-old female that presents to the emergency department today with complaints of chest pain for the last 5 days. Patient states her chest pain is substernal and it comes and goes. When it begins it lasts for approximately 5 minutes and then subsides for 30 minutes. Patient has a history of GERD. Patient has associated dizziness. Patient states it does not hurt when she breathes. (RICHARD LYON) - Related Data Allergies/Adverse Reactions: levofloxacin [From Levaquin] Adverse Reaction (Intermediate, Verified 10/29/17 22:10) nausea and vomiting simvastatin [From Zocor] Adverse Reaction (Intermediate, Verified 10/29/17 22:10 ) rash Past Medical History - General Information source: Patient - Social History Smoking Status: Never Smoker Cigarette use (# per day): No Frequency of alcohol use: None Drug Abuse: None Lives with: Family Family History: Reviewed & Not Pertinent, Arthritis, CAD, CVA, DM, Hyperlipidemia, Hypertension, Malignancy - Past Medical History Cardiac Medical History: Reports: Hx Hypercholesterolemia, Hx Hypertension, Hx Heart Murmur Pulmonary Medical History: Reports: Hx Asthma, Hx Bronchitis, Hx Pneumonia Neurological Medical History: Reports: Hx Migraine Endocrine Medical History: Reports: Hx Diabetes Mellitus Type 2 Renal/ Medical History: Reports: Hx Kidney Stones GI Medical History: Reports: Hx Gastroesophageal Reflux Disease, Hx Ulcer - gastric, Hx Colonoscopy, Hx Endoscopy Musculoskeletal Medical History: Reports Hx Arthritis, Reports Hx Musculoskeletal Trauma Psychiatric Medical History: Reports: Hx Depression Traumatic Medical History: Reports: Hx Fractures - wrist, both ankles Past Surgical History: Reports: Hx Cholecystectomy - lap michael, Hx Hysterectomy , Hx Orthopedic Surgery - L knee x2 - Immunizations Immunizations up to date: Yes Hx Diphtheria, Pertussis, Tetanus Vaccination: Yes - 2012 Hx Pneumococcal Vaccination: 01/30/15 <RICHARD LYON - Last Filed: 12/12/17 09:01> Review of Systems - Review of Systems Constitutional: No symptoms reported EENT: No symptoms reported Cardiovascular: See HPI, Chest pain, Dizziness Respiratory: denies: Hurts to breathe Gastrointestinal: No symptoms reported Genitourinary: No symptoms reported Female Genitourinary: No symptoms reported Musculoskeletal: No symptoms reported Skin: No symptoms reported Hematologic/Lymphatic: No symptoms reported Neurological/Psychological: No symptoms reported -: Yes All other systems reviewed and negative <RICHARD LYON - Last Filed: 12/12/17 09:01> Physical Exam <RICHARD LYON - Last Filed: 12/12/17 09:01> <SEFERINO CASTRO - Last Filed: 12/12/17 11:51> - Vital signs Vitals: Temp Pulse Resp BP Pulse Ox 98.2 F 78 16 170/84 H 97 12/12/17 07:25 12/12/17 07:25 12/12/17 07:25 12/12/17 07:25 12/12/17 07:25 - Notes Notes: Physical Exam: General: Alert, morbidly obese. HEENT: Normocephalic. Atraumatic. PERRL. Extraocular movements intact. Oropharynx clear. Neck: Supple. Non-tender. Respiratory: No respiratory distress. Clear and equal breath sounds bilaterally. Lower sternal tenderness with palpation. Cardiovascular: Regular rate and rhythm. Abdominal: Morbidly obese. Non-tender. No distension. Normal Bowel Sounds. Back: Non-tender. No deformity or step off. Extremities: Moves all four extremities. Upper extremities: Normal inspection. Normal ROM. Lower extremities: Normal inspection. No edema. Normal ROM. Neurological: Normal cognition. AAOx4. Normal speech. Psychological: Normal affect. Normal Mood. Skin: Open sores on the face consistent with uncontrolled diabetes. (RICHARD LYON) Course <CAMRONRICHARD - Last Filed: 12/12/17 09:01> - Laboratory Result Diagrams: 12/12/17 08:45 12/12/17 10:40 - EKG Interpretation by [place] EKG shows normal: Sinus rhythm, Drury, Intervals, QRS Complexes, ST-T Waves Rate: Normal - 80 Rhythm: NSR <SEFERINO CASTRO - Last Filed: 12/12/17 11:51> - Re-evaluation Re-evalutation: 12/12/17 11:43 The patient's pain is reproducible on exam. The EKG is completely normal. The cardiac enzymes are undetectable. The patient is very low probability for having cardiac origin for her chest pain today. (SEFERINO CASTRO) - Vital Signs Vital signs: Temp Pulse Resp BP Pulse Ox 98.2 F 78 16 170/84 H 97 12/12/17 07:25 12/12/17 07:25 12/12/17 07:25 12/12/17 07:25 12/12/17 07:25 - Laboratory Laboratory results interpreted by me: 12/12/17 12/12/17 12/12/17 08:45 08:45 10:40 RDW 14.8 H Plt Count 141 L Glucose 160 H Hemoglobin A1c % 9.6 H AST 47 H ALT 57 H Discharge <RICHARD LYON - Last Filed: 12/12/17 09:01> <SEFERINO CASTRO - Last Filed: 12/12/17 11:51> - Discharge Clinical Impression: Sternum pain High blood pressure Qualifiers: Hypertension type: essential hypertension Qualified Code(s): I10 - Essential ( primary) hypertension Condition: Stable Disposition: HOME, SELF-CARE Additional Instructions: Chest Wall Pain Your chest pain has been diagnosed as coming from the chest wall. This is often caused by straining the muscles or joints in the chest during physical activity, direct trauma, coughing, or vigorous vomiting. Persons with arthritis are especially prone to this type of pain, due to inflammation of the cartilage joints near the breast bone. Occasionally, no cause can be found. Rest from strenuous physical activity. This kind of chest pain is usually made worse by movement of the chest. Depending on the symptoms, we may prescribe medicine for pain, muscle relaxation, and antiinflammatory effects. If the pain is new, and seems to be due to muscle strain, cold packs can help. Otherwise, apply gentle warmth to the painful area for 15 minutes every hour or two. You should contact the doctor immediately if things change. Further evaluation is needed if you develop a fever or cough, if the nature of the pain changes, or if you become short of breath. Your evaluation today does not suggest a cardiac origin for your chest discomfort. You should take Tylenol and ibuprofen or Aleve for your chest wall pain. Your blood pressure was elevated today. Be sure you are taking all of your regular medications as prescribed. Follow-up with your primary care provider if not improving. RETURN TO THE EMERGENCY ROOM IF ANY NEW OR WORSENING SYMPTOMS. Referrals: CALLIE HUERTA PA-C [Primary Care Provider] - Follow up as needed Romuloibshannon Attestation: 12/12/17 09:22 I personally performed the services described in the documentation, reviewed and edited the documentation which was dictated to the scribe in my presence, and it accurately records my words and actions. (SEFERINO CASTRO) Scribe Documentation - Scribe Written by Eula:: Eula Potts, 12/12/2017 [id number] acting as scribe for :: Iman <RICHARD LYON - Last Filed: 12/12/17 09:01>
[2017-12-12 09:53] LABS: ABSOLUTE EOSINOPHILS # (AUTO) 0.2 10^3/uL (0.0-0.6); ABSOLUTE LYMPHOCYTES (AUTO) 2.1 10^3/uL (0.5-4.7); ABSOLUTE MONOCYTES (AUTO) 0.3 10^3/uL (0.1-1.4); ABSOLUTE NEUT (AUTO) 3.3 10^3/uL (1.7-8.2); BASOPHILS % (AUTO) 0.8 % (0-2); HEMATOCRIT 38.4 % (36.0-47.0); HEMOGLOBIN 12.6 g/dL (12.0-15.5); LYMPHOCYTES % (AUTO) 35.4 % (13-45); MEAN CORPUSCULAR HEMOGLOBIN 27.3 pg (27.0-33.4); MEAN CORPUSCULAR HGB CONC 32.9 g/dL (32.0-36.0); MEAN CORPUSCULAR VOLUME 83 fl (80-97); MONOCYTES % (AUTO) 4.8 % (3-13); PLATELET COUNT 141 10^3/uL (150-450); RED BLOOD COUNT 4.62 10^6/uL (3.72-5.28); RED CELL DISTRIBUTION WIDTH 14.8 % (11.5-14.0); TOTAL CELLS COUNTED % (AUTO) 100 %; WHITE BLOOD COUNT 5.8 10^3/uL (4.0-10.5)
[2017-12-12] MEDS ORDERED: ACETAMINOPHEN 325 MG TABLET PO ONE (11:01)
[2017-12-12 11:16] LABS: ALANINE AMINOTRANSFERASE 57 U/L (9-52); ALBUMIN 3.7 g/dL (3.5-5.0); ALKALINE PHOSPHATASE 83 U/L (38-126); ANION GAP 10 (5-19); ASPARTATE AMINO TRANSFERASE 47 U/L (14-36); BILIRUBIN,DIRECT 0.3 mg/dL (0.0-0.4); BILIRUBIN,TOTAL 0.5 mg/dL (0.2-1.3); BLOOD UREA NITROGEN 17 mg/dL (7-20); CALCIUM 9.4 mg/dL (8.4-10.2); CARBON DIOXIDE 28 mmol/L (22-30); CHLORIDE 101 mmol/L (98-107); CREATINE KINASE 50 U/L (30-135); GLUCOSE 160 mg/dL (75-110); POTASSIUM 4.2 mmol/L (3.6-5.0); SODIUM 139.2 mmol/L (137-145); TOTAL PROTEIN 7.1 g/dL (6.3-8.2)
[2017-12-12 12:28] VITALS: BP 125/58
== END 2017-12-12 12:33 | disposition home or self-care (01) ==
LOC: ER 07:10
DX: M89.8X8 Other specified disorders of bone, other site (principal); R42 Dizziness and giddiness; I10 Essential (primary) hypertension; J45.909 Unspecified asthma, uncomplicated; E11.9 Type 2 diabetes mellitus without complications; L98.9 Disorder of the skin and subcutaneous tissue, unspecified; Z87.19 Personal history of other diseases of the digestive system; Z82.49 Family history of ischemic heart disease and other diseases of the circulatory system
CPT/HCPCS: 36415; 80053; 82550; 83036; 84484; 85025; 93005; 93010; 99285